=== PATIENT | female | born 1940 | race Caucasian/White ===

== ENCOUNTER 2016-08-13 08:21 | Outpatient (CLI) | payer MEDICARE ==
[2016-08-13 12:58] LABS: #Basophils 0.1 thou/uL (0.0-0.2); #Eosinphils 0.2 thou/uL (0.0-0.7); #Lymphocytes 2.4 thou/uL (1.20-3.40); #Monocytes 0.8 thou/uL (0.11-0.59); #Neutrophils 5.4 thou/uL (1.40-6.50); %Eosinophils 1.9 % (0.0-10.0); %Lymphocytes 26.9 % (21.0-51.0); %Monocytes 9.5 % (0.0-10.0); %Neutrophils 60.7 % (42.0-75.0); Hemoglobin 14.6 g/dL (12.0-16.0); Mean Corpuscular HGB CONC 32.5 g/dL (32.0-36.0); Mean Corpuscular Hemoglobin 33.5 pg (27.0-31.0); Mean Platelet Volume 5.8 fL (7.4-10.4); Platelet Count 278 thou/uL (130-400); RBC Distribution Width 13.2 % (11.5-14.5); Red Blood Cell (RBC) Count 4.36 mill/uL (4.20-5.40); White Blood Cell (WBC) Count 8.9 thou/uL (4.8-10.8)
[2016-08-13 13:24] LABS: Hemoglobin A1c 5.6 % (4.0-6.0)
[2016-08-13 13:34] LABS: ALT (SGPT) 24 U/L (0-55); AST (SGOT) 23 U/L (5-34); Albumin 4.3 g/dL (3.4-4.8); Alkaline Phosphatase 57 U/L (40-150); Anion Gap 19 mmol/L (10-20); BUN (Urea Nitrogen) 15 mg/dL (9.8-20.1); Bilirubin, Direct 0.2 mg/dL (0.1-0.3); Bilirubin, Total 0.5 mg/dL (0.2-1.2); Calc. Creatinine Clearance 0 mL/min (70-130); Calcium 10.3 mg/dL (7.8-10.44); Carbon Dioxide 25 mmol/L (23-31); Cardiac Risk 4.6 (Less than 4.5); Chloride 99 mmol/L (98-107); Cholesterol 167 mg/dL (< 200 Desired); Estimated GFR-MDRD 49; Glucose 83 mg/dL (83-110); HDL Cholesterol 36 mg/dL (>60 Neg Risk); LDL Cholesterol, Calculated 109 mg/dL; Potassium 4.6 mmol/L (3.5-5.1); Protein, Total 7.6 g/dL (5.8-8.1); Sodium 138 mmol/L (136-145); Triglycerides 108 mg/dL (Less than 150)
== END 2016-08-13 08:22 ==
LOC: NAVSJIPCSP 08:21
PROVIDERS: ATTEND Family Medicine
DX: E03.9 Hypothyroidism, unspecified (principal); B34.9 Viral infection, unspecified; J30.9 Allergic rhinitis, unspecified; D64.9 Anemia, unspecified; J32.9 Chronic sinusitis, unspecified; G44.209 Tension-type headache, unspecified, not intractable; M06.9 Rheumatoid arthritis, unspecified; M62.838 Other muscle spasm; M48.06 Spinal stenosis, lumbar region; M51.16 Intervertebral disc disorders with radiculopathy, lumbar region; I10 Essential (primary) hypertension
CPT/HCPCS: 36415; 80048; 80061; 80076; 83036; 84443; 85025

== ENCOUNTER 2016-12-12 09:54 | Outpatient (CLI) | payer MEDICARE ==
[2016-12-12 19:26] LABS: ALT (SGPT) 18 U/L (8-55); AST (SGOT) 18 U/L (5-34); Alkaline Phosphatase 65 U/L (40-150); Anion Gap 17 mmol/L (10-20); BUN (Urea Nitrogen) 14 mg/dL (9.8-20.1); Bilirubin, Direct 0.3 mg/dL (0.1-0.3); Bilirubin, Total 0.6 mg/dL (0.2-1.2); Calc. Creatinine Clearance 0 mL/min (70-130); Calcium 9.9 mg/dL (7.8-10.44); Carbon Dioxide 25 mmol/L (23-31); Cardiac Risk 3.7 (Less than 4.5); Chloride 100 mmol/L (98-107); Cholesterol 145 mg/dl (< 200 Desired); Estimated GFR-MDRD 53; Glucose 98 mg/dL (83-110); HDL Cholesterol 39 mg/dL (>60 Neg Risk); LDL Cholesterol, Calculated 92 mg/dL; Potassium 4.7 mmol/L (3.5-5.1); Protein, Total 7.1 g/dL (6.0-8.3); Sodium 137 mmol/L (136-145); Triglycerides 72 mg/dL (Less than 150)
[2016-12-12 20:19] LABS: Hemoglobin A1c 5.6 % (4.0-6.0)
[2016-12-12 21:12] LABS: #Basophils 0.1 thou/uL (0.0-0.2); #Eosinphils 0.2 thou/uL (0.0-0.7); #Lymphocytes 2.5 thou/uL (1.20-3.40); #Monocytes 0.7 thou/uL (0.11-0.59); #Neutrophils 5.4 thou/uL (1.40-6.50); %Basophils 1.5 % (0.0-1.0); %Eosinophils 1.9 % (0.0-10.0); %Lymphocytes 28.2 % (21.0-51.0); %Monocytes 7.4 % (0.0-10.0); MDiff Complete? YES; Macrocytosis SLIGHT = 6-15 cells (100X) (0-5/hpf); Mean Corpuscular HGB CONC 31.9 g/dL (32.0-36.0); Mean Corpuscular Hemoglobin 33.5 pg (27.0-31.0); Mean Platelet Volume 5.6 fL (7.4-10.4); Platelet Count 267 thou/uL (130-400); RBC Distribution Width 14.1 % (11.5-14.5); Red Blood Cell (RBC) Count 4.17 mill/uL (4.20-5.40); White Blood Cell (WBC) Count 8.8 thou/uL (4.8-10.8)
== END 2016-12-12 09:55 | disposition home or self-care (01) ==
LOC: NAVSJIPCSP 09:54
PROVIDERS: ATTEND Family Medicine
DX: E03.9 Hypothyroidism, unspecified (principal); M48.06 Spinal stenosis, lumbar region; J30.9 Allergic rhinitis, unspecified; B34.9 Viral infection, unspecified; I10 Essential (primary) hypertension; M06.9 Rheumatoid arthritis, unspecified; D64.9 Anemia, unspecified; Z79.899 Other long term (current) drug therapy
CPT/HCPCS: 36415; 80048; 80061; 80076; 83036; 84443; 85025

== ENCOUNTER 2016-12-19 14:58 | Outpatient (CLI) | payer MEDICARE ==
--- NOTE | 2016-12-19 16:40 | RAD ---
LEFT KNEE FOUR VIEWS: History: Left knee pain. FINDINGS: There is mild joint space narrowing at the medial compartment with mild tricompartmental osteophytos is. No acute fracture, dislocation, or aggressive osseous erosions are apparent. Small amount of flu id distends the suprapatellar bursa on the lateral view. Tiny well corticated ossification lies just superior to the medial femoral condyle on the external rotation view. IMPRESSION: Mild osteoarthritic changes left knee with a small joint effusion. POS: [facility]
[2016-12-19 18:03] LABS: Bilirubin Negative (Negative); Blood, Urine Negative (Negative); Clarity Clear (Clear); Glucose, Urine (Dipstick) Negative (Negative); Leukocyte Trace (Negative); Nitrite Negative (Negative); Protein, Urine (Dipstick) Negative (Neg-Trace); Specific Gravity, Urine 1.015 (1.005-1.030); Urobilinogen 0.2 mg/dL (0.2-1.0); pH, Urine 7.5 (5.0-9.0)
[2016-12-19 18:09] LABS: RBC/HPF 0-3 HPF (0-3)
[2016-12-19 18:10] LABS: Bacteria/HPF Rare-Few HPF (None Seen)
== END 2016-12-19 14:59 | disposition home or self-care (01) ==
LOC: NAV LAB 14:58
PROVIDERS: ATTEND Family Medicine
DX: M25.562 Pain in left knee (principal)
CPT/HCPCS: 81001

== ENCOUNTER 2017-04-02 14:25 | Emergency (ER) | payer MEDICARE ==
[2017-04-02 15:11] LABS: INR-International Normal Ratio 1.1; Prothrombin Time 13.9 SEC (12.0-14.7)
[2017-04-02 15:18] LABS: Hemoglobin 14.1 g/dL (12.0-16.0); Mean Corpuscular Hemoglobin 36.4 pg (27.0-31.0); Mean Platelet Volume 6.5 fL (7.4-10.4); Platelet Count 217 thou/uL (130-400); RBC Distribution Width 12.2 % (11.5-14.5); Red Blood Cell (RBC) Count 3.88 mill/uL (4.20-5.40); White Blood Cell (WBC) Count 8.6 thou/uL (4.8-10.8)
[2017-04-02 15:19] LABS: #Basophils 0.1 thou/uL (0.0-0.2); #Lymphocytes 1.5 thou/uL (1.20-3.40); #Monocytes 1.2 thou/uL (0.11-0.59); #Neutrophils 5.8 thou/uL (1.40-6.50); %Basophils 1.7 % (0.0-1.0); %Eosinophils 0.5 % (0.0-10.0); %Monocytes 13.3 % (0.0-10.0); %Neutrophils 67.4 % (42.0-75.0)
[2017-04-02 15:21] LABS: ALT (SGPT) 37 U/L (8-55); AST (SGOT) 43 U/L (5-34); Alkaline Phosphatase 87 U/L (40-150); Anion Gap 17 mmol/L (10-20); BUN (Urea Nitrogen) 13 mg/dL (9.8-20.1); Bilirubin, Total 0.6 mg/dL (0.2-1.2); Calc. Creatinine Clearance 0 mL/min (70-130); Calcium 9.9 mg/dL (7.8-10.44); Carbon Dioxide 25 mmol/L (23-31); Chloride 100 mmol/L (98-107); Estimated GFR-MDRD 65; Globulin 3.7 g/dL (2.4-3.5); Glucose 95 mg/dL (83-110); Potassium 3.7 mmol/L (3.5-5.1); Protein, Total 7.7 g/dL (6.0-8.3); Sodium 138 mmol/L (136-145)
[2017-04-02 15:22] LABS: CKMB 2.5 ng/mL (0-6.6); Troponin I 0.011 ng/mL (< 0.028)
[2017-04-02 15:25] LABS: PLT Morphology Comment Appears Adequate; RBC Morphology Normal
--- NOTE | 2017-04-02 15:27 | RAD ---
PORTABLE CHEST 1 VIEW: Date: 04/02/17 Time: 1501 hours HISTORY: Cough, dyspnea. Patient had stents placed last week. FINDINGS: Comparison made with exam of 08/15/10. The heart size is borderline. No focal areas of consolidation, pneumothorax, dasia pulmonary edema, o r pleural effusions are seen. IMPRESSION: No radiographic evidence of acute cardiopulmonary process. POS: [facility]
--- NOTE | 2017-04-02 16:41 | CT ---
CTA THORAX WITH CONTRAST: 04/02/17 (Computed Tomographic Angiography, chest(noncoronary) with contrast material, and image postprocessin g) (PE protocol) HISTORY: 76-year-old female with dyspnea. TECHNIQUE: IV injection of iodinated contrast: Administered. Scan acquisition timing attempted to coincide with iodinated contrast bolus reaching maximal density in pulmonary arteries. 3D MIP reconstructions. COMPARISON: None. FINDINGS: Bilateral adrenal glands are thickened, left greater than right. No splenomegaly. Liver is diffusely enlarged, incompletely imaged. Atherosclerotic calcification of thoracic aorta without aneurysm or di ssection. Multiple mildly enlarged, scattered mediastinal lymph nodes, including pretracheal and prev ascular space, and subcarinal region. Mildly enlarged bilateral hilar lymph nodes. No evidence of pul monary thromboembolism. No consolidation, pulmonary edema, pulmonary mass, pleural effusion or pneumo thorax. IMPRESSION: 1. No evidence of pulmonary thromboembolism. 2. Nonspecific mild mediastinal and hilar lymphadenopathy. 3. Hepatomegaly. 4. Mild bilateral adrenal enlargement, nonspecific, perhaps hyperplasia. red[] POS: [facility]
[2017-04-02] MEDS ORDERED: Acetaminophen 325 MG TAB ONE (17:35)
== END 2017-04-02 18:18 | disposition short-term general hospital (02) ==
LOC: NAV ERS 14:25
DX: J20.9 Acute bronchitis, unspecified (principal); I10 Essential (primary) hypertension; F41.9 Anxiety disorder, unspecified; Z79.899 Other long term (current) drug therapy
CPT/HCPCS: 36415; 71010; 71275; 80053; 82553; 83880; 84484; 85025; 85610; 93005; 94760

== ENCOUNTER 2017-04-07 16:44 | Emergency (ER) | payer MEDICARE ==
[2017-04-07] MEDS ORDERED: methylPREDNISolone Sod Succ/PF 125 MG/2 ML VIAL ONE (17:09)
[2017-04-07 17:55] LABS: #Basophils 0.1 thou/uL (0.0-0.2); #Lymphocytes 5.3 thou/uL (1.20-3.40); #Monocytes 1.2 thou/uL (0.11-0.59); #Neutrophils 4.7 thou/uL (1.40-6.50); %Basophils 0.6 % (0.0-1.0); %Eosinophils 0.2 % (0.0-10.0); %Monocytes 10.6 % (0.0-10.0); %Neutrophils 41.6 % (42.0-75.0); Hemoglobin 15.1 g/dL (12.0-16.0); Mean Corpuscular HGB CONC 31.7 g/dL (32.0-36.0); Mean Corpuscular Hemoglobin 33.4 pg (27.0-31.0); Mean Platelet Volume 7.8 fL (7.4-10.4); Platelet Count 122 thou/uL (130-400); RBC Distribution Width 12.4 % (11.5-14.5); Red Blood Cell (RBC) Count 4.53 mill/uL (4.20-5.40); White Blood Cell (WBC) Count 11.3 thou/uL (4.8-10.8)
[2017-04-07 18:12] LABS: ALT (SGPT) 28 U/L (8-55); AST (SGOT) 32 U/L (5-34); Albumin 4.1 g/dL (3.4-4.8); Alkaline Phosphatase 77 U/L (40-150); Anion Gap 17 mmol/L (10-20); BUN (Urea Nitrogen) 11 mg/dL (9.8-20.1); Bilirubin, Total 0.5 mg/dL (0.2-1.2); Calc. Creatinine Clearance 0 mL/min (70-130); Calcium 10.6 mg/dL (7.8-10.44); Carbon Dioxide 24 mmol/L (23-31); Chloride 97 mmol/L (98-107); Estimated GFR-MDRD 55; Globulin 3.8 g/dL (2.4-3.5); Glucose 120 mg/dL (83-110); Potassium 3.7 mmol/L (3.5-5.1); Protein, Total 7.9 g/dL (6.0-8.3); Sodium 134 mmol/L (136-145)
--- NOTE | 2017-04-07 18:14 | RAD ---
PORTABLE SEMIUPRIGHT FRONTAL RICARDO RADIOGRAPH: Date: 04/07/17 COMPARISON: 04/02/17. HISTORY: Dyspnea and shortness of breath. FINDINGS: Patient is imaged in a lordotic position. Heart and mediastinal contours are stable. There is degener ative change of bilateral AC joints. No lobar consolidation or alveolar edema. IMPRESSION: No significant interval change. POS: [facility]
== END 2017-04-07 20:16 | disposition short-term general hospital (02) ==
LOC: NAV ERS 16:44
DX: J44.1 Chronic obstructive pulmonary disease with (acute) exacerbation (principal); I10 Essential (primary) hypertension; F32.9 Major depressive disorder, single episode, unspecified; F41.9 Anxiety disorder, unspecified; Z79.899 Other long term (current) drug therapy; Z79.82 Long term (current) use of aspirin; Z79.02 Long term (current) use of antithrombotics/antiplatelets
CPT/HCPCS: 71010; 80053; 83880; 85025; 93005; 96374; J2930; J7620

== ENCOUNTER 2017-04-19 12:12 | Inpatient (IN) | payer MEDICARE ==
[2017-04-19 12:55] VITALS: BMI 34.5
[2017-04-19] MEDS ORDERED: guaiFENesin/Codeine Phosphate 200 mg/20 mg 10 ml UD Cup PO PRN (17:50)
[2017-04-19] MEDS: Famotidine 20 MG TAB PO SCH (19:04)
[2017-04-19] MEDS ORDERED: IPRATROPIUM ALBUTEROL INH SCH (21:00)
[2017-04-19] MEDS: Arformoterol 15 MCG/2 ML NEB NEB SCH (22:04)
[2017-04-19] MEDS: Budesonide 0.5 MG/2 ML NEB NEB SCH (22:05)
[2017-04-19] MEDS: Spironolactone 25 MG TAB PO SCH (22:05)
[2017-04-19] MEDS: Atorvastatin Calcium 40 MG TAB PO SCH (22:05)
[2017-04-19] MEDS: Benzonatate 100 MG CAP PO SCH (22:05)
[2017-04-19] MEDS: ALPRAZolam 0.5 MG TAB PO PRN (22:06)
[2017-04-19] MEDS: Linezolid 600 MG TAB PO SCH (22:06)
--- NOTE | 2017-04-19 23:35 | HP ---
This is Dr. Darien Orosco, dictating an admission to skilled unit on Ms. Aleena Pulliam, a sandra ent of Dr. Juan J Desai. CHIEF COMPLAINT: MRSA pneumonia, severe deconditioning. HISTORY OF PRESENT ILLNESS: The patient is a 77-year-old white female with a long history of hyperte nsion, COPD, possible sleep apnea, peripheral vascular disease and coronary disease, who was admitted to the hospital at [facility] on 04/07 after having several admissions in the ER for recurrent cough. She had had an admission to the hospital 1 week before that for a stent to her left iliofemoral artery secondary to peripheral vascular disease and with a finding of nonsurgical c oronary disease. She subsequently was found to have a right lower lobe infiltrate with sputum cultur e x2 growing MRSA and is felt to have a health care-associated MRSA pneumonia and was admitted to the hospital and started on vancomycin and meropenem. She was also started on significant bronchodilato rs and steroids and slowly, but surely improved. As mentioned above, she does have a history of poss ible sleep apnea as she failed her sleep study as she was unable to tolerate the mask and therefore h as not been treated. 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 At this time, yasemin jane is still significantly short of breath on any exertion and even on talking requires oxygen at all t imes and was being set up for home O2. However, because of her inability to maintain ADLs and her li ving situation of living alone, it is felt she required admission to the skilled unit for physical th erapy. PAST MEDICAL HISTORY: Also remarkable for hypertension, dyslipidemia, the above-mentioned nonobstruc tive coronary disease, peripheral vascular disease, status post recent left iliac stent, chronic sinu sitis, hypothyroidism, chronic kidney disease stage 3, and probable sleep apnea. ALLERGIES: She is allergic to PENICILLIN and SULFA. SOCIAL HISTORY: She lives alone. She is a . She drinks 3-4 vodka beverages daily. She is a n onsmoker in the last 20 years. FAMILY MEDICAL HISTORY: Positive for mother with CHF and father with a stroke. SURGICAL HISTORY: Positive for hysterectomy, appendectomy, tonsillectomy, 2 bladder surgeries and co ronary stent in 2017, although she tells me she had nonsurgical disease in her left leg arterial sten t in 2017. REVIEW OF SYSTEMS: HEENT: She denies any headaches, dizziness, change in vision or hearing, hoarsen ess or dysphagia. Pulmonary: She does have recent cough, no previous history of cough. She has no significant dyspnea until 6 months ago began to have gradually increasing dyspnea and she has no prev ious history of pneumonia until this MRSA pneumonia. She does have the above-mentioned history of pr obable sleep apnea, untreated. Cardiovascular: She has the above-mentioned history of mild coronary disease with a possible stent, as well as significant peripheral vascular disease with a documented left iliac stent of this month. She has no orthopnea or paroxysmal nocturnal dyspnea. She does have occasional edema. Gastrointestinal: She denies nausea, vomiting, diarrhea, constipation or abdomin al pain. Genitourinary: She denies dysuria, hematuria or nocturia. Musculoskeletal: She denies st iffness, swelling in joints or extremities. PHYSICAL EXAMINATION: GENERAL: The patient is an elderly white female, obese, in no acute distress, who is oriented x3 and cooperative, but does become significant dyspnea on walking or talking. VITAL SIGNS: Showed her to have a blood pressure of 181/72, temperature 98, pulse 93, respirations 2 2 and O2 sats 95% on 2 liters. HEENT: Pupils are equal, round and reactive to light and accommodation. Sclerae are anicteric, Conj unctivae pale. Oral mucous membranes well hydrated. LUNGS: Appeared to be clear with only rare wheezes. No rhonchi or rales. CARDIAC: Regular rhythm. No gallops or murmurs. ABDOMEN: Soft and nontender with no masses or organomegaly. GENITOURINARY: She denies dysuria, hematuria or nocturia. MUSCULOSKELETAL: She has some pain and stiffness in her knees. NEUROLOGIC: She denies localized numbness, weakness in arms or extremities. Has no crepitance or st iffness. Neurologically is intact. LABORATORY AND X-RAY FINDINGS: None done today pending tomorrow. ASSESSMENT AND PLAN: A 77-year-old white female with a history of probable longstanding obstructive sleep apnea, recent diagnosis of coronary artery disease and progressive finding of increasing shortn ess of breath, probably due to chronic obstructive pulmonary disease who was found also to have a new finding of probable healthcare-associated pneumonia with methicillin-resistant Staphylococcus aureus with significant respiratory distress. She has responded to IV vancomycin and is now on oral Zyvox for 2 weeks for her methicillin-resistant Staphylococcus aureus pneumonia, but is improving with mini mal cough, but is significantly hypoxic and short of breath, requiring oxygen at all times and is duarte ble to maintain her ADLs. Therefore, she was admitted to the skilled unit for continued physical the rapy, occupational therapy. While she was monitored closely, continue on her antibiotic therapy for methicillin-resistant Staphylococcus aureus and will be monitored closely for any signs of recurrent angina or congestive heart failure. As mentioned above, if she lives alone, she needs to be much str onger in order to maintain ADLs and hopefully will be able to be taken off her oxygen, but may have c hronic hypoxemia from longstanding obstructive sleep apnea and has been qualified to get this at home . She will be continued on hand held nebulizers, IV Zyvox, diltiazem, Plavix and aspirin.
[2017-04-20 06:05] LABS: #Lymphocytes 1.7 thou/uL (1.20-3.40); #Monocytes 0.9 thou/uL (0.11-0.59); #Neutrophils 12.8 thou/uL (1.40-6.50); %Basophils 0.2 % (0.0-1.0); %Eosinophils 0.1 % (0.0-10.0); %Lymphocytes 11.2 % (21.0-51.0); %Monocytes 5.8 % (0.0-10.0); %Neutrophils 82.7 % (42.0-75.0); Hemoglobin 9.7 g/dL (12.0-16.0); Mean Corpuscular HGB CONC 34.2 g/dL (32.0-36.0); Mean Corpuscular Hemoglobin 32.4 pg (27.0-31.0); Mean Corpuscular Volume 94.8 fl (81.0-99.0); Mean Platelet Volume 6.4 fL (7.4-10.4); Platelet Count 217 thou/uL (130-400); RBC Distribution Width 14.3 % (11.5-14.5); White Blood Cell (WBC) Count 15.5 thou/uL (4.8-10.8)
[2017-04-20 06:21] LABS: Anion Gap 11 mmol/L (10-20); BUN (Urea Nitrogen) 24 mg/dL (9.8-20.1); Calc. Creatinine Clearance 83 mL/min (70-130); Calcium 8.3 mg/dL (7.8-10.44); Carbon Dioxide 29 mmol/L (23-31); Chloride 100 mmol/L (98-107); Estimated GFR-MDRD 69; Glucose 120 mg/dL (83-110); Potassium 5.1 mmol/L (3.5-5.1); Sodium 135 mmol/L (136-145)
[2017-04-20] MEDS: HYDROcodone/Acetaminophen 5/325 mg Tablet PO PRN ×2 (09:31→13:09)
[2017-04-20] MEDS: predniSONE 10 MG TAB PO SCH (09:32)
[2017-04-20] MEDS: Levothyroxine Sodium 50 MCG TAB PO SCH (09:33)
[2017-04-20] MEDS: Clopidogrel Bisulfate 75 MG TAB PO SCH (09:33)
[2017-04-20] MEDS: Aspirin 81 mg Enteric Coated Tablet PO SCH (09:33)
[2017-04-20] MEDS: Spironolactone 25 MG TAB PO SCH ×2 (09:33→21:03)
[2017-04-20] MEDS: Magnesium Oxide 400 MG TAB PO SCH (09:33)
[2017-04-20] MEDS: Famotidine 20 MG TAB PO SCH (09:33)
[2017-04-20] MEDS: Linezolid 600 MG TAB PO SCH ×2 (09:33→21:03)
[2017-04-20] MEDS: Benzonatate 100 MG CAP PO SCH ×3 (09:33→21:03)
[2017-04-20] MEDS: Fluticasone Propionate Nasal Spray 16 gm Bottle NASAL SCH (09:34)
[2017-04-20] MEDS: Arformoterol 15 MCG/2 ML NEB NEB SCH ×2 (09:40→21:02)
[2017-04-20] MEDS: Budesonide 0.5 MG/2 ML NEB NEB SCH ×2 (09:40→21:02)
[2017-04-20] MEDS: IRBESARTAN 300 MG PO SCH (09:41)
--- NOTE | 2017-04-20 11:11 | RAD ---
AP VIEW CHEST: Date: 04/20/17 HISTORY: MRSA, pneumonia. FINDINGS: Comparison made to previous exam from 04/07/17. AP view of chest demonstrates the lungs to be well aerated. No evidence of active intrathoracic disea se is seen. No evidence of effusions, pneumonia, or pneumothorax seen. IMPRESSION: Unremarkable AP view of chest. POS: [facility]
--- NOTE | 2017-04-20 19:33 | PRG ---
DATE OF SERVICE: 04/20/2017 SUBJECTIVE: The patient is sitting up, playing cards, feels well with no dyspnea at rest, slept well last night. Minimal cough, work slightly with therapy today, but is still requiring oxygen and feel s unsafe walking. OBJECTIVE: VITAL SIGNS: Show temperature 131/61, pulse 96, O2 sats 97% on 3 liters. LUNGS: Clear. CARDIAC: Examination showed regular rhythm. ABDOMEN: Soft and nontender. LABORATORY DATA: Show white count 15,500, hematocrit 28, hemoglobin 9.7. Sodium is 135, potassium 5 .1, chloride 100, bicarbonate 29, BUN 24, creatinine 0.81. IMAGING: Chest x-ray shows no acute infiltrates. ASSESSMENT: 1. Resolving methicillin-resistant Staphylococcus aureus pneumonia on oral Zyvox for 2 full weeks. 2. Persistent obstructive sleep apnea and chronic obstructive pulmonary disease requiring oxygen and we will attempt to wean off of this as it become stronger. 3. Significant deconditioning requiring PT and OT. We will monitor vital signs during therapy.
[2017-04-20] MEDS: ALPRAZolam 0.5 MG TAB PO PRN (21:02)
[2017-04-20] MEDS: Atorvastatin Calcium 40 MG TAB PO SCH (21:03)
[2017-04-21] MEDS: HYDROcodone/Acetaminophen 5/325 mg Tablet PO PRN ×3 (03:36→14:09)
[2017-04-21] MEDS: Aspirin 81 mg Enteric Coated Tablet PO SCH (10:02)
[2017-04-21] MEDS: predniSONE 10 MG TAB PO SCH (10:02)
[2017-04-21] MEDS: Linezolid 600 MG TAB PO SCH ×2 (10:03→21:37)
[2017-04-21] MEDS: Magnesium Oxide 400 MG TAB PO SCH (10:03)
[2017-04-21] MEDS: Clopidogrel Bisulfate 75 MG TAB PO SCH (10:04)
[2017-04-21] MEDS: Famotidine 20 MG TAB PO SCH (10:04)
[2017-04-21] MEDS: Benzonatate 100 MG CAP PO SCH ×3 (10:05→21:36)
[2017-04-21] MEDS: Spironolactone 25 MG TAB PO SCH ×2 (10:05→21:36)
[2017-04-21] MEDS: Levothyroxine Sodium 50 MCG TAB PO SCH (10:05)
[2017-04-21] MEDS: Arformoterol 15 MCG/2 ML NEB NEB SCH ×2 (10:05→21:37)
[2017-04-21] MEDS: Budesonide 0.5 MG/2 ML NEB NEB SCH ×2 (10:05→21:37)
[2017-04-21] MEDS: Fluticasone Propionate Nasal Spray 16 gm Bottle NASAL SCH (10:05)
[2017-04-21] MEDS: IRBESARTAN 300 MG PO SCH (10:05)
[2017-04-21] MEDS: Atorvastatin Calcium 40 MG TAB PO SCH (21:36)
[2017-04-21] MEDS: ALPRAZolam 0.5 MG TAB PO PRN (21:36)
[2017-04-22] MEDS: HYDROcodone/Acetaminophen 5/325 mg Tablet PO PRN ×3 (06:46→21:11)
[2017-04-22] MEDS: Famotidine 20 MG TAB PO SCH (09:04)
[2017-04-22] MEDS: Magnesium Oxide 400 MG TAB PO SCH (09:04)
[2017-04-22] MEDS: Aspirin 81 mg Enteric Coated Tablet PO SCH (09:04)
[2017-04-22] MEDS: Clopidogrel Bisulfate 75 MG TAB PO SCH (09:04)
[2017-04-22] MEDS: Benzonatate 100 MG CAP PO SCH ×3 (09:04→21:11)
[2017-04-22] MEDS: Levothyroxine Sodium 50 MCG TAB PO SCH (09:04)
[2017-04-22] MEDS: predniSONE 10 MG TAB PO SCH (09:04)
[2017-04-22] MEDS: Linezolid 600 MG TAB PO SCH ×2 (09:04→21:13)
[2017-04-22] MEDS: Spironolactone 25 MG TAB PO SCH (09:05)
[2017-04-22] MEDS: Budesonide 0.5 MG/2 ML NEB NEB SCH ×2 (09:07→21:11)
[2017-04-22] MEDS: Fluticasone Propionate Nasal Spray 16 gm Bottle NASAL SCH (09:19)
[2017-04-22] MEDS: Arformoterol 15 MCG/2 ML NEB NEB SCH ×3 (09:26→21:13)
[2017-04-22] MEDS: IRBESARTAN 300 MG PO SCH (09:27)
[2017-04-22] MEDS ORDERED: Milk Of Magnesia 30 ML UDCUP PO PRN (10:03)
[2017-04-22] MEDS: IRBESARTAN FS SCH (11:20)
[2017-04-22] MEDS: ALPRAZolam 0.5 MG TAB PO PRN (21:12)
[2017-04-22] MEDS: Atorvastatin Calcium 40 MG TAB PO SCH (21:13)
--- NOTE | 2017-04-23 04:23 | PRG ---
DATE OF SERVICE: 04/22/2017 SUBJECTIVE: The patient feels well, resting in bed with no shortness breath, chest pain, cough. OBJECTIVE: VITAL SIGNS: Temperature 97.3, pulse 96, respirations 20, O2 sats 97% on 1.5 liters, blood pressure 141/61. LUNGS: Clear. CARDIAC EXAMINATION: Showed regular rhythm. ABDOMEN: Soft, nontender. Skin and extremities showed no edema. ASSESSMENT: 1. Resolving methicillin-resistant Staphylococcus aureus pneumonia, on Zyvox. 2. Stable obstructive sleep apnea and chronic obstructive pulmonary disease. 3. Significant deconditioning. PLAN: 1. Discontinue oxygen tomorrow. 2. Continue PT, OT. 3. Continue oral Zyvox.
--- NOTE | 2017-04-23 04:29 | PRG ---
DATE OF SERVICE: 04/21/2017 SUBJECTIVE: The patient feels well, resting well with no cough, shortness of breath, has not been up and moving around secondary to no therapy available. OBJECTIVE: VITAL SIGNS: Shows her blood pressure is 140/63, pulse 103, respirations 20, O2 sats 99% on 2 liters . LUNGS: Clear. CARDIAC: Examination showed regular rhythm. No gallops or murmurs. ABDOMEN: Soft and nontender. ASSESSMENT: 1. Resolving methicillin-resistant Staphylococcus aureus pneumonia, on Zyvox 14 days. 2. Stable obstructive sleep apnea, chronic obstructive pulmonary disease, home oxygen. 3. Significant deconditioning, resting well, awaiting physical therapy. PLAN: Continue Zyvox. Continue to monitor for changes in vital signs. Continue CPAP and oxygen as needed. We will wean off hopefully in the next several days if the patie nt becomes stronger.
[2017-04-23 06:03] LABS: Anion Gap 12 mmol/L (10-20); BUN (Urea Nitrogen) 23 mg/dL (9.8-20.1); Calc. Creatinine Clearance 79 mL/min (70-130); Calcium 7.9 mg/dL (7.8-10.44); Carbon Dioxide 27 mmol/L (23-31); Chloride 100 mmol/L (98-107); Estimated GFR-MDRD 65; Glucose 99 mg/dL (83-110); Potassium 4.6 mmol/L (3.5-5.1); Sodium 134 mmol/L (136-145)
[2017-04-23] MEDS: predniSONE 10 MG TAB PO SCH (08:05)
[2017-04-23] MEDS: Levothyroxine Sodium 50 MCG TAB PO SCH (08:05)
[2017-04-23] MEDS: Magnesium Oxide 400 MG TAB PO SCH (08:05)
[2017-04-23] MEDS: Clopidogrel Bisulfate 75 MG TAB PO SCH (08:05)
[2017-04-23] MEDS: Famotidine 20 MG TAB PO SCH (08:06)
[2017-04-23] MEDS: Benzonatate 100 MG CAP PO SCH ×3 (08:06→21:56)
[2017-04-23] MEDS: HYDROcodone/Acetaminophen 5/325 mg Tablet PO PRN ×3 (08:06→21:56)
[2017-04-23] MEDS: Linezolid 600 MG TAB PO SCH ×2 (08:06→21:56)
[2017-04-23] MEDS: Aspirin 81 mg Enteric Coated Tablet PO SCH (08:06)
[2017-04-23] MEDS: Budesonide 0.5 MG/2 ML NEB NEB SCH ×2 (08:07→21:55)
[2017-04-23] MEDS: Arformoterol 15 MCG/2 ML NEB NEB SCH ×2 (09:30→21:54)
[2017-04-23] MEDS: Fluticasone Propionate Nasal Spray 16 gm Bottle NASAL SCH (09:31)
[2017-04-23] MEDS: IRBESARTAN FS SCH (09:35)
[2017-04-23] MEDS: ALPRAZolam 0.5 MG TAB PO PRN (21:56)
[2017-04-23] MEDS: Atorvastatin Calcium 40 MG TAB PO SCH (21:56)
[2017-04-24] MEDS: Levothyroxine Sodium 50 MCG TAB PO SCH (05:57)
[2017-04-24] MEDS: Fluticasone Propionate Nasal Spray 16 gm Bottle NASAL SCH (08:19)
[2017-04-24] MEDS: HYDROcodone/Acetaminophen 5/325 mg Tablet PO PRN ×3 (08:21→22:07)
[2017-04-24] MEDS: Clopidogrel Bisulfate 75 MG TAB PO SCH (08:22)
[2017-04-24] MEDS: Magnesium Oxide 400 MG TAB PO SCH (08:22)
[2017-04-24] MEDS: Benzonatate 100 MG CAP PO SCH ×3 (08:22→21:34)
[2017-04-24] MEDS: Famotidine 20 MG TAB PO SCH (08:22)
[2017-04-24] MEDS: Linezolid 600 MG TAB PO SCH ×2 (08:23→21:34)
[2017-04-24] MEDS: Budesonide 0.5 MG/2 ML NEB NEB SCH ×2 (08:23→21:34)
[2017-04-24] MEDS: Arformoterol 15 MCG/2 ML NEB NEB SCH ×2 (08:23→21:34)
[2017-04-24] MEDS: Aspirin 81 mg Enteric Coated Tablet PO SCH (08:23)
[2017-04-24] MEDS: predniSONE 10 MG TAB PO SCH (08:24)
--- NOTE | 2017-04-24 08:49 | PRG ---
DATE OF SERVICE: 04/24/2017 SUBJECTIVE: The patient is resting well, sitting in the chair playing cards, feels well. No complai nts of shortness of breath, chest pain. She cooperated with therapy today and feels she is getting s tronger. She has had no fever, chills, cough or sputum production. OBJECTIVE: VITAL SIGNS: Blood pressure is 120/56, temperature 96.7, pulse 97, respirations 20, O2 sats 96%. LUNGS: Lungs clear. CARDIAC: Cardiac examination shows regular rhythm. No gallops, murmurs. ABDOMEN: Soft and nontender. ASSESSMENT: 1. Resolving methicillin-resistant Staphylococcus aureus pneumonia, on Zyvox. 2. Stable obstructive sleep apnea and chronic obstructive pulmonary disease. 3. Improving deconditioning. PLAN: Continue physical therapy, occupational therapy. Continue oral Zyvox. Dr. Desai is back to night.
[2017-04-24] MEDS: Atorvastatin Calcium 40 MG TAB PO SCH (21:34)
[2017-04-25] MEDS: Levothyroxine Sodium 50 MCG TAB PO SCH (06:02)
[2017-04-25] MEDS: HYDROcodone/Acetaminophen 5/325 mg Tablet PO PRN ×3 (06:02→20:57)
--- NOTE | 2017-04-25 06:19 | PRG ---
DATE OF ADMISSION: 04/19/2017 DATE OF SERVICE: 04/24/2017 HISTORY OF PRESENT ILLNESS: Ms. Pulliam is a very pleasant 77-year-old white female patient of min e from [place], [place]. She had multiple visits to the emergency room at [facility]. She was eventually admitted for pneumonia. She had a right lower lobe infiltrate and sputum cu ltures grew out MRSA. She was started on vancomycin, meropenem, steroids, and bronchodilators. The patient eventually improved, but she was extremely weak. She was eventually transferred to [facility] for physical therapy and occupational therapy to increase her strength and her stam marco antonio. SUBJECTIVE: The patient states she feels a little bit better today. She is still very weak, but she is able to make one lap around the nurse's station with considerable rest periods. The patient states she is doing much better and is ready to continue to get stronger, so she can go h ome eventually. PHYSICAL EXAMINATION: VITAL SIGNS: Reveal blood pressure 132/58, pulse 99 to 105, respirations 20, O2 sat 95% to 96%. GENERAL: This is a well-developed, well-nourished, obese white female in no apparent distress today. She has seen playing cards in her bed. HEENT: Reveals normocephalic, nontraumatic cranium. Pupils are equally round and reactive. Extraoc ular movements intact. Nose and throat are moist. NECK: Supple, without mass, nodes or bruits. CHEST: Still reveals occasional wheeze, but no rales, rhonchi are noted. Occasional raspy cough was noted. HEART: Reveals a regular rate and rhythm without murmurs, gallops or rubs. ABDOMEN: Obese, soft, nontender, without organomegaly. Normal bowel sounds are noted. No rebound o r guarding was noted. : Deferred. EXTREMITIES: Reveal no clubbing, cyanosis or any significant edema. She does have significant arthr itis in her knees. NEUROLOGIC: She is grossly intact. LABORATORY DATA: Reveals sodium yesterday 134, potassium 4.6, creatinine 0.85, and glucose 99. ASSESSMENT: 1. Peripheral vascular disease with new stents, mainly in her left leg. 2. Chronic obstructive pulmonary disease. 3. Methicillin-resistant Staphylococcus aureus healthcare associated pneumonia with significant resp iratory distress. 4. Hypertension. 5. Hyperlipidemia. 6. Coronary artery disease. 7. Peripheral vascular disease. 8. Hypothyroidism. 9. Chronic kidney disease stage 3. 10. Probable sleep apnea. 11. Chronic sinusitis. 12. Recent left iliac stent. 13. Generalized weakness. PLAN: 1. Continue her Zyvox for full 2 weeks after being admitted here. 2. Stress ulcer prophylaxis. 3. Continue to follow the patient's blood pressure closely. 4. Decubitus precautions. 5. Deep venous thrombosis prophylaxis. 6. Physical therapy and occupational therapy.
[2017-04-25] MEDS: Fluticasone Propionate Nasal Spray 16 gm Bottle NASAL SCH (09:15)
[2017-04-25] MEDS: Magnesium Oxide 400 MG TAB PO SCH (09:16)
[2017-04-25] MEDS: Clopidogrel Bisulfate 75 MG TAB PO SCH (09:16)
[2017-04-25] MEDS: Benzonatate 100 MG CAP PO SCH ×3 (09:17→20:52)
[2017-04-25] MEDS: Linezolid 600 MG TAB PO SCH ×2 (09:17→20:52)
[2017-04-25] MEDS: predniSONE 10 MG TAB PO SCH (09:17)
[2017-04-25] MEDS: Aspirin 81 mg Enteric Coated Tablet PO SCH (09:17)
[2017-04-25] MEDS: Famotidine 20 MG TAB PO SCH (09:18)
[2017-04-25] MEDS: Arformoterol 15 MCG/2 ML NEB NEB SCH ×2 (09:18→20:51)
[2017-04-25] MEDS: Budesonide 0.5 MG/2 ML NEB NEB SCH ×2 (09:19→20:51)
[2017-04-25] MEDS: Atorvastatin Calcium 40 MG TAB PO SCH (20:52)
--- NOTE | 2017-04-26 00:59 | PRG ---
DATE OF SERVICE: 04/25/2017 DATE OF ADMISSION: 04/19/2017 HISTORY OF PRESENT ILLNESS: Ms. Pulliam is a very pleasant 77-year-old white female that after mul tiple visits to the emergency room and was admitted. She was found to have pneumonia and right lower lobe infiltrate and was growing out MRSA. She was eventually started on vancomycin, meropenem stero ids and bronchodilators. She eventually improved and was transferred to [facility] for physical the rapy and occupational therapy because of her significant loss of her strength and her significant wea kness. PHYSICAL EXAMINATION: VITAL SIGNS: Today reveal blood pressure is 119/57 this morning. Pulse 101, respirations 20, O2 sat uration 97% on room air, temperature max 98.1. GENERAL: This is a well-developed, well-nourished, obese white female in no apparent distress at thi s time. HEENT: Reveals normocephalic, nontraumatic cranium. Pupils are equally round and reactive. Extraoc ular movements intact. Nose and throat are somewhat dry but clear. NECK: Supple, without masses, nodes or bruits. LUNGS: Chest is clear to auscultation. No rales, rhonchi or wheezes are heard today. Occasional ra spy cough is still heard, but the patient's wheezes are gone. HEART: Reveals a regular rate and rhythm without murmurs, gallops or rubs. ABDOMEN: Soft, nontender, without organomegaly, normal bowel sounds are noted. No rebound or guardi ng is noted. : Deferred. EXTREMITIES: Reveal no clubbing, cyanosis or edema. NEUROLOGIC: The patient does have continued arthritis in her knees, but those are slowly improving. Neurologically, she is grossly intact. IMPRESSION: 1. Peripheral vascular disease with new stents mainly in her left leg. 2. Chronic obstructive pulmonary disease. 2. Methicillin Staphylococcus aureus healthcare associated pneumonia with significant respiratory di stress. 3. Hypertension. 4. Hyperlipidemia. 5. Coronary artery disease. 6. Hypothyroidism. 7. Peripheral vascular disease. 8. Chronic kidney disease, stage 3. 9. Probable sleep apnea. 10. Chronic sinusitis. 11. Left iliac stent recently placed. 12. Generalized weakness. PLAN: 1. Continue Zyvox for full 2 weeks. 2. Continue stress ulcer prophylaxis. 3. Monitor the patient's blood pressure closely. 4. Decubitus precautions. 5. Deep venous thrombosis prophylaxis. 6. Physical therapy and occupational therapy.
[2017-04-26] MEDS: Levothyroxine Sodium 50 MCG TAB PO SCH (06:08)
[2017-04-26] MEDS: Budesonide 0.5 MG/2 ML NEB NEB SCH ×2 (09:03→21:03)
[2017-04-26] MEDS: Arformoterol 15 MCG/2 ML NEB NEB SCH ×2 (09:03→21:02)
[2017-04-26] MEDS: Fluticasone Propionate Nasal Spray 16 gm Bottle NASAL SCH (09:03)
[2017-04-26] MEDS: Linezolid 600 MG TAB PO SCH ×2 (09:04→21:01)
[2017-04-26] MEDS: Benzonatate 100 MG CAP PO SCH ×3 (09:04→21:03)
[2017-04-26] MEDS: Clopidogrel Bisulfate 75 MG TAB PO SCH (09:05)
[2017-04-26] MEDS: Magnesium Oxide 400 MG TAB PO SCH (09:05)
[2017-04-26] MEDS: Aspirin 81 mg Enteric Coated Tablet PO SCH (09:05)
[2017-04-26] MEDS: Famotidine 20 MG TAB PO SCH (09:05)
[2017-04-26] MEDS: predniSONE 10 MG TAB PO SCH (09:06)
[2017-04-26] MEDS: HYDROcodone/Acetaminophen 5/325 mg Tablet PO PRN ×2 (11:03→21:01)
--- NOTE | 2017-04-26 13:11 | PRG ---
DATE OF SERVICE: 04/26/2017 HISTORY OF PRESENT ILLNESS: Ms. Pulliam is a very pleasant 77-year-old white female that was seen in the emergency room, found to have a right lower lobe infiltrate pneumonia. She was growing out MR MICHAELS on her sputum culture. She was started on vancomycin, meropenem steroids and bronchodilator. She was extremely fatigued and eventually transferred to [facility] for physical therapy and occupational therapy. SUBJECTIVE: The patient states she is feeling better. She states she is walking a little bit better today. On physical therapy, she walked 120 feet day before yesterday and 180 feet yesterday. She states she is slowly, but surely getting stronger. PHYSICAL EXAMINATION: GENERAL: This is a well-developed, well-nourished, very pleasant 77-year-old white female in no appa rent distress at this time. VITAL SIGNS: Today reveal blood pressure 122/60, pulse 96-100, respirations 16-18, O2 sat 94%-96%, T -max 97.3. HEENT: Reveals normocephalic, nontraumatic cranium. Pupils are equally, round and reactive. Extrao cular movements intact. Nose and throat are slightly dry. NECK: Supple, without masses, nodes or bruits. CHEST: Clear to auscultation. No rales, rhonchi or wheezes are heard. CARDIOVASCULAR: Reveals a regular rate and rhythm without murmurs, gallops or rubs. ABDOMEN: Obese, soft, nontender, without organomegaly. Normal bowel sounds are noted. No rebound o r guarding is noted. GENITOURINARY: Deferred. EXTREMITIES: Reveal no clubbing, cyanosis with trace edema. The patient continues to have some arth ritis in her knees. NEUROLOGIC: The patient is grossly intact. IMPRESSION: 1. Severe peripheral vascular disease with new stents mainly in the left leg. 2. Chronic obstructive pulmonary disease. 3. Methicillin-resistant Staph aureus healthcare associated pneumonia with significant respiratory d istress, slowly improving. 4. Hypertension. 5. Hyperlipidemia. 6. Coronary artery disease. 7. Hypothyroidism. 8. Peripheral vascular disease. 9. Chronic kidney disease stage 3. 10. Probable sleep apnea. 11. Chronic sinusitis. 12. Left iliac stent recently placed. 13. Generalized weakness. PLAN: 1. Continue Zyvox for a full 2 weeks. 2. Continue stress ulcer prophylaxis. 3. Monitor the patient's blood pressure closely. 4. Decubitus precautions. 5. Deep venous thrombosis prophylaxis. 6. Physical therapy and occupational therapy to continue.
[2017-04-26] MEDS: Atorvastatin Calcium 40 MG TAB PO SCH (21:01)
[2017-04-27] MEDS: HYDROcodone/Acetaminophen 5/325 mg Tablet PO PRN ×2 (03:04→21:15)
[2017-04-27] MEDS: Levothyroxine Sodium 50 MCG TAB PO SCH (06:25)
[2017-04-27] MEDS: Fluticasone Propionate Nasal Spray 16 gm Bottle NASAL SCH (09:08)
[2017-04-27] MEDS: Arformoterol 15 MCG/2 ML NEB NEB SCH ×2 (09:11→21:13)
[2017-04-27] MEDS: Linezolid 600 MG TAB PO SCH ×2 (09:11→21:22)
[2017-04-27] MEDS: Budesonide 0.5 MG/2 ML NEB NEB SCH ×2 (09:11→21:13)
[2017-04-27] MEDS: Magnesium Oxide 400 MG TAB PO SCH (09:11)
[2017-04-27] MEDS: Famotidine 20 MG TAB PO SCH (09:12)
[2017-04-27] MEDS: Aspirin 81 mg Enteric Coated Tablet PO SCH (09:12)
[2017-04-27] MEDS: Clopidogrel Bisulfate 75 MG TAB PO SCH (09:12)
[2017-04-27] MEDS: Benzonatate 100 MG CAP PO SCH ×3 (09:12→21:12)
[2017-04-27] MEDS: predniSONE 10 MG TAB PO SCH (09:13)
--- NOTE | 2017-04-27 20:57 | PRG ---
DATE OF SERVICE: 04/27/2017 HISTORY OF PRESENT ILLNESS: Ms. Pulliam is a very pleasant 77-year-old white female found to have a right lower lobe infiltrate and pneumonia. She is growing MRSA in her sputum. She eventually was started on vancomycin, meropenem, steroids, and bronchodilators. She eventually was stabilized and w as transferred to [facility] to continue her antibiotics and for physical therapy and occupational therapy to increase her strength and stamina. SUBJECTIVE: The patient states she had a bad night last night and actually has not slept in last 2 n ights. She would like to stop her albuterol at night. Also, recommend that we cut her steroids to 2 0 mg only in the morning and not 20 mg b.i.d. She is amenable to both those things. She continues t o walk a little bit, but therapy is not in today. She has no complaints today. OBJECTIVE: VITAL SIGNS: Reveals blood pressure this morning was 160/79, pulse 102-106, respirations 18-19, O2 s at 94% to 96%. T-max is 98.0. LABORATORY DATA: No labs were done today. PHYSICAL EXAMINATION: GENERAL: This is a well-developed, well-nourished, very pleasant, slightly obese white female in no apparent distress at this time. HEENT: Reveals normocephalic, nontraumatic cranium. Pupils are equally round and reactive. Extraoc ular movements intact. Nose and throat are dry, but clear. The patient has still squeaky raspy type voice. CHEST: Reveals no rales, rhonchi, or wheezes, but occasional cough is still noted. HEART: Reveals a regular rate and rhythm without murmurs, gallops, or rubs. ABDOMEN: Obese, soft, nontender, without organomegaly. Normal bowel sounds are noted. No rebound o r guarding is noted. : Deferred. EXTREMITIES: Reveal no clubbing, cyanosis, but still some trace edema. The patient continues to hav e arthritis in her knees also. NEUROLOGIC: The patient is grossly intact. IMPRESSION: 1. Chronic obstructive pulmonary disease. 2. Pneumonia, which is methicillin-resistant Staph aureus, healthcare associated, slowly improving. 3. Hypertension. 4. Coronary artery disease. 5. Hyperlipidemia. 6. Chronic obstructive pulmonary disease. 7. Hypothyroidism. 8. Peripheral vascular disease. 9. Chronic kidney disease, stage 3. 10. Probable sleep apnea. 11. Chronic sinusitis. 12. Left iliac stent recently placed some generalized weakness. PLAN: 1. Continue Zyvox for a full 2 weeks. 2. Continue stress ulcer prophylaxis. 3. Continue to watch the patient's blood pressure closely. 4. Decubitus precautions. 5. Deep venous thrombosis prophylaxis. 6. Continue physical therapy and occupational therapy when they return.
[2017-04-27] MEDS: Atorvastatin Calcium 40 MG TAB PO SCH (21:13)
[2017-04-27] MEDS: ALPRAZolam 0.5 MG TAB PO PRN (23:59)
[2017-04-28] MEDS: Levothyroxine Sodium 50 MCG TAB PO SCH (05:49)
[2017-04-28] MEDS: Fluticasone Propionate Nasal Spray 16 gm Bottle NASAL SCH (09:17)
[2017-04-28] MEDS: Arformoterol 15 MCG/2 ML NEB NEB SCH ×2 (09:17→21:26)
[2017-04-28] MEDS: Linezolid 600 MG TAB PO SCH ×2 (09:18→21:26)
[2017-04-28] MEDS: Budesonide 0.5 MG/2 ML NEB NEB SCH ×2 (09:18→21:26)
[2017-04-28] MEDS: Benzonatate 100 MG CAP PO SCH ×3 (09:19→21:27)
[2017-04-28] MEDS: Aspirin 81 mg Enteric Coated Tablet PO SCH (09:19)
[2017-04-28] MEDS: Clopidogrel Bisulfate 75 MG TAB PO SCH (09:19)
[2017-04-28] MEDS: Magnesium Oxide 400 MG TAB PO SCH (09:19)
[2017-04-28] MEDS: Famotidine 20 MG TAB PO SCH (09:20)
[2017-04-28] MEDS: predniSONE 10 MG TAB PO SCH (09:20)
[2017-04-28] MEDS: HYDROcodone/Acetaminophen 5/325 mg Tablet PO PRN (21:26)
[2017-04-28] MEDS: Atorvastatin Calcium 40 MG TAB PO SCH (21:27)
[2017-04-28] MEDS: ALPRAZolam 0.5 MG TAB PO PRN (22:13)
--- NOTE | 2017-04-29 00:02 | PRG ---
DATE OF ADMISSION: 04/19/2017 DATE OF SERVICE: 04/28/2017 HISTORY OF PRESENT ILLNESS: Ms. Pulliam is a very pleasant 77-year-old white female, who was found to have a right lower lobe infiltrate and pneumonia. She was at [facility] and was growing MR . She eventually was started on vancomycin, meropenem, steroids, and bronchodilators. She bertha ramsey was stabilized and transferred to [facility] to continue her antibiotics. She wa s also here for physical therapy and occupational therapy to increase her strength and stamina. SUBJECTIVE: The patient states she had a better night last night since she is off her steroids. She said she slept fairly well, but not as well as she thought she would want to. She has no complaints today. OBJECTIVE: VITAL SIGNS: Reveal blood pressure this morning was 121/60, pulse 91-102, respirations 20, O2 sat 95 % to 96%, T-max is 97.8. GENERAL: This is a well-developed, well-nourished, obese white female, in no apparent distress at th is time. HEENT: Reveals normocephalic, nontraumatic cranium. Pupils are equally round and reactive. Extraoc ular movements are intact. Nose and throat are slightly dry, but clear. NECK: Supple, without masses, nodes or bruits. Her voice is much stronger and less squeaky today. CHEST: Clear to auscultation. No rales, no rhonchi, no wheezes are heard. The patient has much les s cough noted. CARDIOVASCULAR: Heart reveals regular rate and rhythm without murmurs, gallops or rubs. ABDOMEN: Obese, soft, nontender, without organomegaly. Normal bowel sounds are found in all 4 quadr ants. No rebound or guarding is noted. GENITOURINARY: Deferred. EXTREMITIES: Reveal no clubbing, cyanosis, with still some trace edema. The patient continued to garrison ve arthritis in her knees also. NEUROLOGIC: The patient is stable and grossly intact. IMPRESSION 1. Chronic obstructive pulmonary disease with acute exacerbation. 2. Pneumonia with methicillin-resistant Staphylococcus aureus, healthcare-associated, slowly improvi ng. 3. Generalized weakness. 4. Hypertension. 5. Coronary artery disease. 6. Hyperlipidemia. 7. Chronic obstructive pulmonary disease. 8. Hypothyroidism. 9. Peripheral vascular disease. 10. Chronic kidney disease, stage 3. 11. Probable obstructive sleep apnea. 12. Chronic sinusitis. 13. Left iliac stent recently placed with some generalized weakness. 14. Generalized weakness. PLAN: 1. Continue Zyvox for 2 weeks. 2. Continue stress ulcer prophylaxis. 3. Continue to watch the patient's blood pressure closely. 4. Decubitus precaution. 5. Deep venous thrombosis prophylaxis. 6. Continue physical therapy and occupational therapy.
[2017-04-29] MEDS: Levothyroxine Sodium 50 MCG TAB PO SCH (06:00)
[2017-04-29] MEDS: Fluticasone Propionate Nasal Spray 16 gm Bottle NASAL SCH (09:49)
[2017-04-29] MEDS: Arformoterol 15 MCG/2 ML NEB NEB SCH ×2 (09:50→21:32)
[2017-04-29] MEDS: Linezolid 600 MG TAB PO SCH ×2 (09:51→21:31)
[2017-04-29] MEDS: Clopidogrel Bisulfate 75 MG TAB PO SCH (09:51)
[2017-04-29] MEDS: Benzonatate 100 MG CAP PO SCH ×3 (09:51→21:31)
[2017-04-29] MEDS: Aspirin 81 mg Enteric Coated Tablet PO SCH (09:52)
[2017-04-29] MEDS: Famotidine 20 MG TAB PO SCH (09:52)
[2017-04-29] MEDS: Magnesium Oxide 400 MG TAB PO SCH (09:53)
[2017-04-29] MEDS: Budesonide 0.5 MG/2 ML NEB NEB SCH ×2 (09:55→21:32)
[2017-04-29] MEDS: predniSONE 10 MG TAB PO SCH (09:56)
--- NOTE | 2017-04-29 17:18 | PRG ---
DATE OF ADMISSION: 04/19/2017 DATE OF SERVICE: 04/29/2017 HISTORY OF PRESENT ILLNESS: Ms. Pulliam is a very pleasant 77-year-old white female who had a righ t lower lobe infiltrate and pneumonia. She was treated at the [facility] and was growing MRSA. She was started on vancomycin, meropenem, steroids and bronchodilators. She eventually was stabilized and transferred to [facility] for physical therapy and occ upational therapy to increase her strength and stamina. SUBJECTIVE: The patient states she had a good day. She slept well last night and feels a little tir ed today, but did have some physical therapy and did fairly well. OBJECTIVE: VITAL SIGNS: Reveal blood pressure 115/55; pulse 102 to 96, which is coming down; respirations 18; O 2 sat 97% to 99%, which is improved. T-max 97.4. GENERAL: This is a well-developed, well-nourished, very pleasant, slightly obese white female, in no apparent distress at this time. HEENT: Reveals normocephalic, nontraumatic cranium. Pupils are equally round and reactive. Nose an d throat are slightly dry. NECK: Supple, without masses, nodes or bruits. LUNGS: Chest is clear to auscultation. No rales, rhonchi or wheezes are heard. No cough is noted t tre. CARDIOVASCULAR: Heart reveals a regular rate and rhythm without murmurs, gallops or rubs. ABDOMEN: Obese and soft. It is nontender without organomegaly. Normal bowel sounds are noted. No rebound or guarding is noted. : Deferred. EXTREMITIES: Reveal no clubbing, cyanosis or edema. ASSESSMENT: 1. Chronic obstructive pulmonary disease with acute exacerbation. 2. Pneumonia with methicillin-resistant Staph aureus, healthcare-associated, slowly improving. 3. Generalized weakness. 4. Hypertension. 5. Coronary artery disease. 6. Hyperlipidemia. 7. Chronic obstructive pulmonary disease. 8. Hypothyroidism. 9. Peripheral vascular disease. 10. Chronic kidney disease, stage 3. 11. Probable obstructive sleep apnea. 12. Chronic sinusitis. 13. Left iliac stent recently placed for some generalized weakness. 14. Generalized weakness. PLAN: 1. Continue Zyvox for 2 weeks. 2. Continue stress ulcer prophylaxis. 3. Continue to watch the patient's blood pressure closely. 4. Decubitus precautions. 5. Deep venous thrombosis prophylaxis. 6. Continue physical therapy and occupational therapy. 7. Last day of Zyvox is this Saturday, I believe on the .
[2017-04-29] MEDS: HYDROcodone/Acetaminophen 5/325 mg Tablet PO PRN (21:30)
[2017-04-29] MEDS: Atorvastatin Calcium 40 MG TAB PO SCH (21:31)
[2017-04-29] MEDS: ALPRAZolam 0.5 MG TAB PO PRN (21:31)
[2017-04-30] MEDS: Levothyroxine Sodium 50 MCG TAB PO SCH (05:40)
[2017-04-30] MEDS: Fluticasone Propionate Nasal Spray 16 gm Bottle NASAL SCH (09:23)
[2017-04-30] MEDS: Arformoterol 15 MCG/2 ML NEB NEB SCH ×2 (09:23→21:18)
[2017-04-30] MEDS: Budesonide 0.5 MG/2 ML NEB NEB SCH ×2 (09:23→21:15)
[2017-04-30] MEDS: Benzonatate 100 MG CAP PO SCH ×3 (09:24→21:17)
[2017-04-30] MEDS: Magnesium Oxide 400 MG TAB PO SCH (09:24)
[2017-04-30] MEDS: Aspirin 81 mg Enteric Coated Tablet PO SCH (09:24)
[2017-04-30] MEDS: Linezolid 600 MG TAB PO SCH ×2 (09:24→21:15)
[2017-04-30] MEDS: Clopidogrel Bisulfate 75 MG TAB PO SCH (09:25)
[2017-04-30] MEDS: predniSONE 10 MG TAB PO SCH (09:25)
[2017-04-30] MEDS: Famotidine 20 MG TAB PO SCH (09:25)
--- NOTE | 2017-04-30 10:08 | PRG ---
DATE OF SERVICE: 04/30/2017 HISTORY OF PRESENT ILLNESS: Ms. Pulliam is a very pleasant 77-year-old white female with a right l ower lobe infiltrate pneumonia. Treated at [facility] and was growing MRSA. She was started on vancomycin, meropenem, steroids and transferred over to [place] on Zyvox. She has act ually done very well except she is still hyper we are decreasing her steroids to 10 mg today. We are also going to stop her albuterol, DuoNeb treatments. She states she gets short of breath when she walks and we will continue to get her moving and walking around in and out of bed as much as possible. PHYSICAL EXAMINATION: VITAL SIGNS: Today reveal blood pressure 110/56, pulse 99-105 which is improved, it is used to be 10 6 at all times. Respirations 18-20, O2 sat 96%-97%. T-max 96.1. GENERAL: This is a well-developed, slightly obese white female in no apparent distress at this time. HEENT: Reveals normocephalic, nontraumatic cranium. Pupils are equally round and reactive. Extraoc ular movements intact. Nose and throat are slightly dry. NECK: Supple, without masses, nodes or bruits. LUNGS: Chest is clear to auscultation. No rales, rhonchi or wheezes are heard. HEART: Reveals a regular rate and rhythm without murmurs, gallops or rubs. ABDOMEN: Obese and soft. It is nontender, without organomegaly. Normal bowel sounds are noted in a ll 4 quadrants. No rebound or guarding is noted. : Deferred. EXTREMITIES: Reveal no clubbing, cyanosis with trace edema. IMPRESSION: 1. Chronic obstructive pulmonary disease with acute exacerbation. 2. Pneumonia with methicillin-resistant Staphylococcus aureus, healthcare associated, presently on Z yvox which runs out at the end of the week. 3. Generalized weakness. 4. Hypertension. 5. Coronary artery disease. 6. Hyperlipidemia. 7. Chronic obstructive pulmonary disease. 8. Hypothyroidism. 9. Peripheral vascular disease. 10. Chronic kidney disease stage 3. 11. Obstructive sleep apnea. 12. Chronic sinusitis. 13. Left iliac stent recently placed. 14. Generalized weakness. PLAN: 1. Zyvox runs out, I believe Saturday on 05/03/2017. 2. Continue stress ulcer prophylaxis. 3. Watch patient's blood pressure. 4. Decrease steroids to 10 mg each day. 5. Stop the DuoNebs. 6. Decubitus precautions. 7. DVT prophylaxis. 8. Continue physical therapy and occupational therapy.
[2017-04-30] MEDS: Atorvastatin Calcium 40 MG TAB PO SCH (21:15)
[2017-04-30] MEDS: HYDROcodone/Acetaminophen 5/325 mg Tablet PO PRN (21:16)
[2017-04-30] MEDS: ALPRAZolam 0.5 MG TAB PO PRN (21:17)
[2017-05-01] MEDS: Levothyroxine Sodium 50 MCG TAB PO SCH (06:01)
[2017-05-01] MEDS: Fluticasone Propionate Nasal Spray 16 gm Bottle NASAL SCH (08:57)
[2017-05-01] MEDS: Arformoterol 15 MCG/2 ML NEB NEB SCH ×2 (08:57→21:08)
[2017-05-01] MEDS: Budesonide 0.5 MG/2 ML NEB NEB SCH ×2 (08:57→21:11)
[2017-05-01] MEDS: Famotidine 20 MG TAB PO SCH (08:58)
[2017-05-01] MEDS: Clopidogrel Bisulfate 75 MG TAB PO SCH (08:58)
[2017-05-01] MEDS: Linezolid 600 MG TAB PO SCH ×2 (08:58→21:13)
[2017-05-01] MEDS: Magnesium Oxide 400 MG TAB PO SCH (08:58)
[2017-05-01] MEDS: Benzonatate 100 MG CAP PO SCH ×3 (08:58→21:11)
[2017-05-01] MEDS: Aspirin 81 mg Enteric Coated Tablet PO SCH (08:58)
[2017-05-01] MEDS: predniSONE 10 MG TAB PO SCH (09:00)
[2017-05-01 14:17] LABS: #Basophils 0.1 thou/uL (0.0-0.2); #Lymphocytes 1.4 thou/uL (1.20-3.40); #Monocytes 0.2 thou/uL (0.11-0.59); #Neutrophils 7.4 thou/uL (1.40-6.50); %Basophils 0.7 % (0.0-1.0); %Eosinophils 0.5 % (0.0-10.0); %Lymphocytes 15.6 % (21.0-51.0); %Monocytes 2.4 % (0.0-10.0); %Neutrophils 80.8 % (42.0-75.0); Hemoglobin 8.6 g/dL (12.0-16.0); Hypochromia SLIGHT = 6-15 cells (100X) (0-5/hpf); MDiff Complete? YES; Mean Corpuscular HGB CONC 33.4 g/dL (32.0-36.0); Mean Corpuscular Hemoglobin 31.7 pg (27.0-31.0); Mean Corpuscular Volume 94.8 fl (81.0-99.0); Mean Platelet Volume 7.6 fL (7.4-10.4); PLT Morphology Comment Appears Decreased; Platelet Count 61 thou/uL (130-400); RBC Distribution Width 13.3 % (11.5-14.5); White Blood Cell (WBC) Count 9.2 thou/uL (4.8-10.8)
[2017-05-01 14:22] LABS: ALT (SGPT) 30 U/L (8-55); AST (SGOT) 18 U/L (5-34); Albumin 3.3 g/dL (3.4-4.8); Alkaline Phosphatase 40 U/L (40-150); Anion Gap 13 mmol/L (10-20); BUN (Urea Nitrogen) 39 mg/dL (9.8-20.1); Bilirubin, Total 1.3 mg/dL (0.2-1.2); Calc. Creatinine Clearance 59 mL/min (70-130); Calcium 7.9 mg/dL (7.8-10.44); Carbon Dioxide 21 mmol/L (23-31); Chloride 102 mmol/L (98-107); Estimated GFR-MDRD 46; Globulin 1.8 g/dL (2.4-3.5); Glucose 102 mg/dL (83-110); Potassium 4.3 mmol/L (3.5-5.1); Protein, Total 5.1 g/dL (6.0-8.3); Sodium 132 mmol/L (136-145)
--- NOTE | 2017-05-01 14:39 | PRG ---
DATE OF SERVICE: 05/01/2017 SUBJECTIVE: Ms. Pulliam is a very pleasant 77-year-old white female that was initially admitted to [facility] with pneumonia. She had significant respiratory distress, was eventu ally found to have a methicillin-resistant Staph aureus, healthcare associated. She was placed on Zy vox, which runs out by end of the week. The patient has not had a good day today. She states she wa s only able to walk about half what she usually does, because she has got completely tired and exhaus sylvie. She had to sit and will have to be pushed back to her room. I did discuss with physical therapy and physical therapy said that her heart rate went up and it stay ed up and her blood pressures started dropping, so she brought back to the room where she was hypoten sive. That is soon resolved after she rested. OBJECTIVE: Vital signs today reveal blood pressure 102/53, pulse 93-106, respirations 18-20, O2 sat 96%-98%. T-max 97.2. LABORATORY DATA: No labs have been done in several days, so we will do a CBC, comp met and BNP. The patient will also have a chest x-ray. The patient will also have an echocardiogram done today. PHYSICAL EXAMINATION: GENERAL: This is a well-developed, well-nourished, very pleasant white female in no apparent distres s at this time. She states she is just tired and exhausted. She also states that her appetite is ve ry poor. HEENT: Reveals normocephalic, nontraumatic cranium. Pupils are equally round and reactive. Extraoc ular movements intact. Nose and throat are slightly dry. NECK: Supple, without masses, nodes or bruits. LUNGS: Chest is clear to auscultation. No rales, no rhonchi, no wheezes are heard. Cough is minima l. CARDIOVASCULAR: Heart reveals a regular rate and rhythm, but tachycardic at 100. ABDOMEN: Obese, soft, nontender, without organomegaly. Normal bowel sounds are noted. No rebound o r guarding is noted. : Deferred. EXTREMITIES: Reveal no clubbing, cyanosis with trace edema. IMPRESSION: 1. Chronic obstructive pulmonary disease with acute exacerbation. 2. Pneumonia with methicillin-resistant Staphylococcus aureus, healthcare associated. 3. Presently on Zyvox, which runs out on Saturday. 4. Continue generalized weakness. 5. Increase in her regular weakness. 6. Hypertension. 7. Coronary artery disease. 8. Hyperlipidemia. 9. Chronic obstructive pulmonary disease. 10. Hypothyroidism. 11. Peripheral vascular disease. 12. Chronic kidney disease stage 3. 13. Obstructive sleep apnea. 14. Generalized sinusitis. 15. Left iliac stent recently placed. 16. Generalized weakness. PLAN: 1. Continue Zyvox with the last date being on Saturday. 2. Continued stress ulcer prophylaxis. 3. We will follow the patient's blood pressure. 4. Steroids had been decreased to 10 mg a day. We will continue that. 5. We stopped her DuoNeb, which she continues on Pulmicort budesonide. 6. Decubitus precautions. 7. Deep venous thrombosis prophylaxis. 8. Continue PT and OT.
--- NOTE | 2017-05-01 15:45 | RAD ---
CHEST TWO VIEW: HISTORY: Shortness of breath. COMPARISON: Chest, one view, 04/20/2017. FINDINGS: There is increased mediastinal fat. The left costophrenic sulcus is obscured on the PA view. No new focal air space consolidation. There are dense calcifications in the aorta. Extensive degenerative changes throughout the thoracic spine without a compression fracture. IMPRESSION: Obscured left lateral costophrenic sulcus, which may be sequela of increased mediastinal fat. POS: AMBERLY
[2017-05-01] MEDS: Atorvastatin Calcium 40 MG TAB PO SCH (21:11)
[2017-05-02] MEDS: ALPRAZolam 0.5 MG TAB PO PRN ×2 (00:41→21:34)
[2017-05-02] MEDS: Levothyroxine Sodium 50 MCG TAB PO SCH (06:30)
[2017-05-02] MEDS: predniSONE 10 MG TAB PO SCH (07:36)
[2017-05-02] MEDS: HYDROcodone/Acetaminophen 5/325 mg Tablet PO PRN (07:36)
[2017-05-02] MEDS: Budesonide 0.5 MG/2 ML NEB NEB SCH ×2 (09:06→21:35)
[2017-05-02] MEDS: Fluticasone Propionate Nasal Spray 16 gm Bottle NASAL SCH (09:06)
[2017-05-02] MEDS: Arformoterol 15 MCG/2 ML NEB NEB SCH ×2 (09:07→21:35)
[2017-05-02] MEDS: Clopidogrel Bisulfate 75 MG TAB PO SCH (09:07)
[2017-05-02] MEDS: Linezolid 600 MG TAB PO SCH ×2 (09:07→21:34)
[2017-05-02] MEDS: Benzonatate 100 MG CAP PO SCH ×3 (09:08→21:34)
[2017-05-02] MEDS: Famotidine 20 MG TAB PO SCH (09:08)
[2017-05-02] MEDS: Aspirin 81 mg Enteric Coated Tablet PO SCH (09:09)
[2017-05-02] MEDS: Magnesium Oxide 400 MG TAB PO SCH (09:09)
[2017-05-02] MEDS: Atorvastatin Calcium 40 MG TAB PO SCH (21:34)
[2017-05-03] MEDS: Levothyroxine Sodium 50 MCG TAB PO SCH (05:59)
[2017-05-03] MEDS: Arformoterol 15 MCG/2 ML NEB NEB SCH ×2 (08:31→22:19)
[2017-05-03] MEDS: Fluticasone Propionate Nasal Spray 16 gm Bottle NASAL SCH (08:31)
[2017-05-03] MEDS: Clopidogrel Bisulfate 75 MG TAB PO SCH (08:32)
[2017-05-03] MEDS: Linezolid 600 MG TAB PO SCH (08:32)
[2017-05-03] MEDS: Budesonide 0.5 MG/2 ML NEB NEB SCH ×2 (08:32→22:20)
[2017-05-03] MEDS: Benzonatate 100 MG CAP PO SCH ×3 (08:32→22:20)
[2017-05-03] MEDS: Magnesium Oxide 400 MG TAB PO SCH (08:33)
[2017-05-03] MEDS: Famotidine 20 MG TAB PO SCH (08:35)
[2017-05-03] MEDS: Aspirin 81 mg Enteric Coated Tablet PO SCH (08:35)
[2017-05-03] MEDS: predniSONE 10 MG TAB PO SCH (08:35)
[2017-05-03] MEDS ORDERED: Ondansetron HCl/PF 4 MG/2 ML Vial SLOW IVP SCH (14:45)
--- NOTE | 2017-05-03 16:44 | PRG ---
DATE OF SERVICE: 05/03/2017 DATE OF ADMISSION: 03/30/2017 HISTORY OF PRESENT ILLNESS: Ms. Pulliam is a very pleasant 77-year-old white female that was admit sylvie to [facility] with pneumonia. She is noted to be methicillin-resistant Staph ylococcus aureus that was healthcare associated. Placed on Zyvox which runs out tomorrow. Patient h as had feeling weak and not wanting to eat very much. We did not encourage her to continue to walk a nd do the best she could. She states that she just feels much more tired today. PHYSICAL EXAMINATION: VITAL SIGNS: Reveal blood pressure 105/51, pulse 93-113, respirations 20, O2 sat 92%-97%, T-max 97.4 . PHYSICAL EXAMINATION: GENERAL: This is a well-developed, well-nourished, pleasant, slightly obese white female in no appar ent distress at this time. HEENT: Reveals normocephalic, nontraumatic cranium. Pupils are equally round and reactive. Extraoc ular movements intact. Nose and throat are slightly dry. NECK: Supple, without mass, nodes or bruits. CHEST: Clear to auscultation. No rales, rhonchi or wheezes are heard. HEART: Reveals a regular rate and rhythm without murmurs, gallops or rubs. ABDOMEN: Obese, soft, nontender. No organomegaly is noted. No rebound or guarding is noted. GENITOURINARY: Deferred. EXTREMITIES: Reveal no clubbing, cyanosis or edema. LABORATORY DATA: Reveals white count 9,200, hemoglobin 8.6, hematocrit 25.6, and platelet count 61,0 00. Electrolytes reveal sodium 132, potassium 4.3, chloride 102, carbon dioxide 21 with BUN of 39, creati nine 1.14. Glucose is 102. IMPRESSION: 1. Increased fatigue and malaise possibly gastrointestinal virus. 2. Chronic obstructive pulmonary disease with acute exacerbation, much improved. 3. Pneumonia with methicillin-resistant Staph, finishes Zyvox on Saturday. 4. Generalized weakness. 5. Increased fatigue. 6. Hypertension. 7. Coronary artery disease. 8. Hyperlipidemia. 9. Hypothyroidism. 10. Peripheral vascular disease. 11. Chronic kidney disease stage 3. 12. Obstructive sleep apnea. 13. Generalized sinusitis. 14. Left iliac stent recently placed. 15. Generalized weakness. PLAN: 1. Zyvox will finish on Saturday. 2. Continue stress ulcer prophylaxis. 3. Follow the patient's blood pressure. 4. Encourage the patient to eat and drink. 5. If the patient's steroids is still down to 10 mg a day, we will continue to follow that. 6. We did stop her DuoNeb, she is not having respiratory problems. 7. Decubitus precautions. 8. DVT prophylaxis. 9. Continue PT and OT.
--- NOTE | 2017-05-03 17:09 | PRG ---
DATE OF SERVICE: 05/03/2017. HISTORY OF PRESENT ILLNESS: Ms. Lester is a very pleasant 77-year-old white female admitted to [facility] with MRSA Staph healthcare-associated pneumonia. She was started on Zyvo x and was eventually stabilized and transferred here to continue Zyvox for a full 14 days, which is o soheila on Saturday. Patient has been doing physical therapy, occupational therapy for the last couple of days has felt ve ry weak and today, she states she was so weak, she could not participate in therapy. She states she is not hungry. She is somewhat nauseated and she did get a shot of Zofran today. She is encouraged to continue drinking, but she said she is just not hungry. PHYSICAL EXAMINATION: VITAL SIGNS: Today reveal blood pressure 105/51, pulse 100-106, respirations 20, O2 sat 94-95%. Lab will be drawn again tomorrow. GENERAL: Reveals a well-developed, well-nourished, tired looking white female in no apparent distres s at this time. HEENT: Reveals normocephalic, nontraumatic cranium. Pupils are equally round and reactive. Extraoc ular movements are intact. Nose and throat are still dry. NECK: Supple, without masses, nodes or bruits. LUNGS: Chest is clear to auscultation. No rales, rhonchi or wheezes are heard. The patient is not coughing. CARDIOVASCULAR: Reveals a regular rate and rhythm. Still tachycardic, which has been her norm since she has been here. ABDOMEN: Soft, nontender, without organomegaly, normal bowel sounds are noted. No rebound or guardi ng is noted. : Deferred. EXTREMITIES: Reveal no clubbing, cyanosis or edema. DIAGNOSTIC DATA: Echocardiogram reveals mild concentric left ventricular hypertrophy, ejection fract ion was 50-55%. E/A flow reverse suggestive of diastolic dysfunction. Normal right ventricular size and function. ASSESSMENT: 1. Chronic obstructive pulmonary disease with acute exacerbation, much improved. 2. Methicillin-resistant Staphylococcus aureus resistant healthcare associated, finishes Zyvox today . 3. Generalized weakness. 4. Hypertension. 5. Coronary artery disease. 6. Hyperlipidemia. 7. Chronic obstructive pulmonary disease. 8. Hypothyroidism. 9. Peripheral vascular disease. 10. Chronic kidney disease stage 3. 11. Obstructive sleep apnea and does not wear CPAP. 12. Generalized sinusitis. 13. Left iliac stent, recently placed. PLAN: 1. Zyvox will be stopped today. 2. We will stop patient's Lipitor in case this may be a statin-induced myopathy. 3. Continue followup of patient's blood pressure. 4. Steroids are down to 10 mg daily. 5. Continue Pulmicort, budesonide. 6. Decubitus precautions. 7. Deep venous thrombosis prophylaxis. Continue PT and OT.
[2017-05-04 00:41] LABS: Bilirubin Small (Negative); Blood, Urine Negative (Negative); Clarity Clear (Clear); Glucose, Urine (Dipstick) Negative (Negative); Leukocyte Trace (Negative); Nitrite Negative (Negative); Protein, Urine (Dipstick) 30 mg/dL (Neg-Trace)
[2017-05-04 00:53] LABS: Specific Gravity, Urine 1.024 (1.002-1.036)
[2017-05-04 00:54] LABS: Bacteria/HPF Rare-Few HPF (None Seen); RBC/HPF None Seen HPF (0-3)
[2017-05-04 05:58] LABS: #Lymphocytes 1.2 thou/uL (1.20-3.40); #Monocytes 0.2 thou/uL (0.11-0.59); #Neutrophils 3.7 thou/uL (1.40-6.50); %Basophils 0.4 % (0.0-1.0); %Eosinophils 0.9 % (0.0-10.0); %Lymphocytes 23.2 % (21.0-51.0); %Monocytes 2.9 % (0.0-10.0); %Neutrophils 72.6 % (42.0-75.0); Hemoglobin 8.1 g/dL (12.0-16.0); Mean Corpuscular HGB CONC 33.8 g/dL (32.0-36.0); Mean Corpuscular Hemoglobin 31.7 pg (27.0-31.0); Mean Corpuscular Volume 93.7 fl (81.0-99.0); Mean Platelet Volume 9.5 fL (7.4-10.4); PLT Morphology Comment Appears Decreased; Platelet Count 52 thou/uL (130-400); RBC Distribution Width 13.1 % (11.5-14.5); RBC Morphology Normal; Red Blood Cell (RBC) Count 2.55 mill/uL (4.20-5.40); White Blood Cell (WBC) Count 5.1 thou/uL (4.8-10.8)
[2017-05-04 05:59] LABS: MDiff Complete? YES; Manual Diff?? NO
[2017-05-04 06:03] LABS: ALT (SGPT) 30 U/L (8-55); AST (SGOT) 18 U/L (5-34); Albumin 3.3 g/dL (3.4-4.8); Alkaline Phosphatase 46 U/L (40-150); Anion Gap 16 mmol/L (10-20); BUN (Urea Nitrogen) 47 mg/dL (9.8-20.1); Bilirubin, Total 0.9 mg/dL (0.2-1.2); Calc. Creatinine Clearance 56 mL/min (70-130); Calcium 8.3 mg/dL (7.8-10.44); Carbon Dioxide 19 mmol/L (23-31); Chloride 102 mmol/L (98-107); Estimated GFR-MDRD 44; Glucose 130 mg/dL (83-110); Potassium 4.6 mmol/L (3.5-5.1); Protein, Total 5.3 g/dL (6.0-8.3); Sodium 132 mmol/L (136-145)
[2017-05-04] MEDS: Levothyroxine Sodium 50 MCG TAB PO SCH (06:08)
[2017-05-04] MEDS: Fluticasone Propionate Nasal Spray 16 gm Bottle NASAL SCH (08:45)
[2017-05-04] MEDS: Clopidogrel Bisulfate 75 MG TAB PO SCH (08:46)
[2017-05-04] MEDS: Aspirin 81 mg Enteric Coated Tablet PO SCH (08:46)
[2017-05-04] MEDS: Magnesium Oxide 400 MG TAB PO SCH (08:47)
[2017-05-04] MEDS: Benzonatate 100 MG CAP PO SCH ×3 (08:47→21:05)
[2017-05-04] MEDS: Famotidine 20 MG TAB PO SCH (08:47)
[2017-05-04] MEDS: predniSONE 10 MG TAB PO SCH (08:48)
[2017-05-04] MEDS: Budesonide 0.5 MG/2 ML NEB NEB SCH ×2 (08:50→21:05)
[2017-05-04] MEDS: Arformoterol 15 MCG/2 ML NEB NEB SCH ×2 (09:18→21:04)
[2017-05-04] MEDS: Sodium Chloride 0.9% 1,000 ML IV SCH ×3 (10:50→21:03)
[2017-05-04] MEDS: Ondansetron HCl/PF 4 MG/2 ML Vial IVP PRN ×2 (12:15→17:50)
--- NOTE | 2017-05-04 16:30 | PRG ---
DATE OF SERVICE: 05/04/2017 SUBJECTIVE: Ms. Pulliam is fatigued and tired today. She had low blood pressure this morning. Sh e also felt nauseous. Her blood pressure medicine was held and she has been started on IV fluids. S he is responding to Zofran. She also has a flat affect. OBJECTIVE: VITAL SIGNS: She is afebrile, heart rate is 97, respirations 20, oxygen saturation 94%, blood pressu re 110/53, it was 96/50 this morning. CARDIOVASCULAR SYSTEM: S1, S2 plus. RESPIRATORY SYSTEM: Normal vesicular breath sounds. ABDOMEN: Soft, nontender, bowel sounds heard in all quadrants. EXTREMITIES: Without cyanosis or clubbing. CENTRAL NERVOUS SYSTEM: Generalized weakness with flat affect. LABORATORY DATA: White count is 5.1, hemoglobin and hematocrit is 8.1 and 23.9. Sodium 132, potassi um 4.6, BUN and creatinine 47 and 1.19, it was 39 and 1.14 on 05/01/2017. Blood sugars are 100 and 1 46. IMPRESSION: 1. Resolving methicillin-resistant Staphylococcus aureus pneumonia. 2. Hypotension and nausea with decreased p.o. intake. 3. Chronic obstructive pulmonary disease. 4. Hypertension. 5. Coronary artery disease without angina. 6. Dyslipidemia. 7. Hypothyroidism. 8. Obstructive sleep apnea. 9. Possible depression. PLAN: 1. Continue IV fluids normal saline at 100 mL an hour. 2. Hold Avapro if systolic blood pressure is less than 140. 3. Trial of Celexa 10 mg daily. 4. Routine laboratory values. 5. DVT and stress ulcer prophylaxis. 6. Decubitus precautions. 7. Physical therapy. 8. Decrease prednisone to 5 mg. 9. Discussed with patient in detail and all questions answered.
[2017-05-04] MEDS: Acetaminophen 325 MG TAB PO PRN (21:05)
[2017-05-04] MEDS: Ondansetron ODT 4 MG TAB PO PRN (21:05)
[2017-05-04] MEDS: ALPRAZolam 0.5 MG TAB PO PRN (21:05)
[2017-05-05] MEDS: Levothyroxine Sodium 50 MCG TAB PO SCH (06:14)
[2017-05-05 07:47] LABS: #Eosinphils 0.1 thou/uL (0.0-0.7); #Lymphocytes 1.3 thou/uL (1.20-3.40); #Monocytes 0.2 thou/uL (0.11-0.59); #Neutrophils 3.9 thou/uL (1.40-6.50); %Basophils 0.4 % (0.0-1.0); %Lymphocytes 23.2 % (21.0-51.0); %Monocytes 3.6 % (0.0-10.0); %Neutrophils 71.9 % (42.0-75.0); Hemoglobin 7.7 g/dL (12.0-16.0); MDiff Complete? YES; Manual Diff?? NO; Mean Corpuscular HGB CONC 33.5 g/dL (32.0-36.0); Mean Corpuscular Hemoglobin 31.8 pg (27.0-31.0); Mean Corpuscular Volume 94.8 fl (81.0-99.0); Mean Platelet Volume 8.8 fL (7.4-10.4); PLT Morphology Comment Appears Decreased; Platelet Count 55 thou/uL (130-400); RBC Distribution Width 13.2 % (11.5-14.5); RBC Morphology Normal; Red Blood Cell (RBC) Count 2.41 mill/uL (4.20-5.40); White Blood Cell (WBC) Count 5.4 thou/uL (4.8-10.8)
[2017-05-05 08:02] LABS: Anion Gap 15 mmol/L (10-20); BUN (Urea Nitrogen) 38 mg/dL (9.8-20.1); Calc. Creatinine Clearance 81 mL/min (70-130); Calcium 7.9 mg/dL (7.8-10.44); Carbon Dioxide 18 mmol/L (23-31); Chloride 105 mmol/L (98-107); Estimated GFR-MDRD 67; Glucose 98 mg/dL (83-110); Potassium 4.5 mmol/L (3.5-5.1); Sodium 133 mmol/L (136-145)
[2017-05-05] MEDS: Sodium Chloride 0.9% 1,000 ML IV SCH ×2 (08:03→16:54)
[2017-05-05] MEDS: predniSONE 10 MG TAB PO SCH (09:51)
[2017-05-05] MEDS: Clopidogrel Bisulfate 75 MG TAB PO SCH (09:52)
[2017-05-05] MEDS: Benzonatate 100 MG CAP PO SCH ×3 (09:52→21:09)
[2017-05-05] MEDS: Magnesium Oxide 400 MG TAB PO SCH (09:52)
[2017-05-05] MEDS: Aspirin 81 mg Enteric Coated Tablet PO SCH (09:53)
[2017-05-05] MEDS: Arformoterol 15 MCG/2 ML NEB NEB SCH ×2 (09:54→21:09)
[2017-05-05] MEDS: Famotidine 20 MG TAB PO SCH (09:54)
[2017-05-05] MEDS: Fluticasone Propionate Nasal Spray 16 gm Bottle NASAL SCH (09:56)
[2017-05-05] MEDS: Budesonide 0.5 MG/2 ML NEB NEB SCH ×2 (09:59→21:09)
--- NOTE | 2017-05-05 11:35 | PRG ---
DATE OF SERVICE: 05/05/2017 SUBJECTIVE: Ms. Pulliam states she is feeling better. She denies any complaints. Nausea is impro nneka. She is having bowel movements daily. OBJECTIVE: VITAL SIGNS: She is afebrile, heart rate 94, respirations 17, oxygen saturation 93%, blood pressure 98/53. CARDIOVASCULAR: S1, S2 plus. RESPIRATORY: Normal vesicular breath sounds. ABDOMEN: Soft, nontender, bowel sounds heard in all quadrants. EXTREMITIES: Without cyanosis or clubbing. CENTRAL NERVOUS SYSTEM: Generalized weakness. LABORATORY VALUES: White count is 5.4, H&H is 7.7 and 22.9. Sodium 133, potassium 4.5, BUN and crea tinine is 38 and 0.83. IMPRESSION: 1. Resolving dehydration. 2. Improving nausea. 3. Hyponatremia, improving. 4. Depression. 5. Resolving methicillin resistant Staphylococcus aureus pneumonia. 6. Chronic obstructive pulmonary disease. 7. Coronary artery disease without angina. 8. Dyslipidemia. 9. Hypothyroidism. PLAN: 1. Continue current medications. She is actually on Zoloft 25 mg daily since there is an interactio n between the Celexa and the Zofran. 2. Nutritional support. 3. Physical therapy. 4. Breathing treatments. 5. Deep venous thrombosis and stress ulcer prophylaxis. 6. Routine laboratory values. 7. Dr. Lamont Desai back tonight to resume care.
[2017-05-05] MEDS: ALPRAZolam 0.5 MG TAB PO PRN (21:09)
[2017-05-06] MEDS: Sodium Chloride 0.9% 1,000 ML IV SCH ×2 (03:38→18:18)
[2017-05-06 05:41] LABS: Anion Gap 12 mmol/L (10-20); BUN (Urea Nitrogen) 25 mg/dL (9.8-20.1); Calc. Creatinine Clearance 90 mL/min (70-130); Carbon Dioxide 22 mmol/L (23-31); Chloride 105 mmol/L (98-107); Estimated GFR-MDRD 76; Glucose 89 mg/dL (83-110); Potassium 4.9 mmol/L (3.5-5.1); Sodium 134 mmol/L (136-145)
[2017-05-06] MEDS: Levothyroxine Sodium 50 MCG TAB PO SCH (06:19)
[2017-05-06] MEDS: Famotidine 20 MG TAB PO SCH (08:44)
[2017-05-06] MEDS: Arformoterol 15 MCG/2 ML NEB NEB SCH ×2 (08:44→21:32)
[2017-05-06] MEDS: predniSONE 10 MG TAB PO SCH (08:44)
[2017-05-06] MEDS: Clopidogrel Bisulfate 75 MG TAB PO SCH (08:44)
[2017-05-06] MEDS: Magnesium Oxide 400 MG TAB PO SCH (08:45)
[2017-05-06] MEDS: Budesonide 0.5 MG/2 ML NEB NEB SCH ×2 (08:45→21:32)
[2017-05-06] MEDS: Benzonatate 100 MG CAP PO SCH ×3 (08:45→21:32)
[2017-05-06] MEDS: Aspirin 81 mg Enteric Coated Tablet PO SCH (08:45)
[2017-05-06] MEDS: Fluticasone Propionate Nasal Spray 16 gm Bottle NASAL SCH (08:46)
--- NOTE | 2017-05-06 21:30 | PRG ---
DATE OF SERVICE: 05/06/2017 SUBJECTIVE: Ms. Pulliam is a very pleasant 77-year-old white female that had MRSA Staph, healthcar e-associated pneumonia. She was started on multiple medications and actually switched to Zyvox. She was transferred to [facility] on Zyvox for 14 days, which is over on Saturday. Otherw ise, she has been doing very well under physical therapy and occupational therapy except for the last couple of days. She has felt very weak. Over the weekend, she was very weak, but now this morning she states she is feeling better. She is up and walking, less nausea. She states she did eat a jacek le more breakfast today. She states she is slowly but surely getting a little better. She has no co mplaints today. OBJECTIVE: VITAL SIGNS: Reveal blood pressure this morning 122/60, pulse 100-99, respirations 18, O2 sat 99%, T -max 97.7. GENERAL: This is a well-developed, well-nourished, slightly obese white female in no apparent distre ss at this time. HEENT: Reveals normocephalic, nontraumatic cranium. Pupils are equally round and reactive. Extraoc ular muscle movements intact. Nose and throat are slightly dry. NECK: Supple without masses, nodes, or bruits. LUNGS: Chest is clear to auscultation. No rales, rhonchi, or wheezes are heard. CARDIOVASCULAR: Reveals a regular rate and rhythm without murmurs, gallops, or rubs. ABDOMEN: Soft, nontender without organomegaly, normal bowel sounds are noted. No rebound or guardin g is noted. GENITOURINARY: Deferred. EXTREMITIES: Reveal no clubbing, cyanosis with trace edema. ASSESSMENT: 1. Chronic obstructive pulmonary disease with acute exacerbation, improved. 2. Methicillin-resistant Staphylococcus aureus, healthcare-associated, finished Zyvox on Saturday. 3. Generalized weakness. 4. Hypertension. 5. Coronary artery disease. 6. Hyperlipidemia. 7. Chronic obstructive pulmonary disease. 8. Hypothyroidism. 9. Peripheral vascular disease. 10. Chronic kidney disease, stage 3. 11. Obstructive sleep apnea and does not wear CPAP. 12. Generalized sinusitis. 13. Left iliac stent was replaced. PLAN: 1. Patient will finish her Zyvox on this Saturday. 2. The patient is continued to be on steroids 10 mg daily. We will need to wean that in the future. 3. Follow with patient's blood pressure closely. 4. Continue Pulmicort, budesonide. 5. Decubitus precautions. 6. DVT thrombosis prophylaxis. 7. Continue physical therapy and occupational therapy.
[2017-05-06] MEDS: ALPRAZolam 0.5 MG TAB PO PRN (21:32)
[2017-05-07] MEDS: Sodium Chloride 0.9% 1,000 ML IV SCH ×3 (00:40→21:08)
[2017-05-07] MEDS: Levothyroxine Sodium 50 MCG TAB PO SCH (05:53)
[2017-05-07] MEDS: Magnesium Oxide 400 MG TAB PO SCH (08:56)
[2017-05-07] MEDS: Aspirin 81 mg Enteric Coated Tablet PO SCH (08:56)
[2017-05-07] MEDS: Fluticasone Propionate Nasal Spray 16 gm Bottle NASAL SCH (08:56)
[2017-05-07] MEDS: Famotidine 20 MG TAB PO SCH (08:56)
[2017-05-07] MEDS: Benzonatate 100 MG CAP PO SCH ×3 (08:57→21:07)
[2017-05-07] MEDS: predniSONE 10 MG TAB PO SCH (08:57)
[2017-05-07] MEDS: Clopidogrel Bisulfate 75 MG TAB PO SCH (08:58)
[2017-05-07] MEDS: Budesonide 0.5 MG/2 ML NEB NEB SCH ×2 (08:59→21:07)
[2017-05-07] MEDS: Arformoterol 15 MCG/2 ML NEB NEB SCH ×2 (08:59→21:07)
[2017-05-07] MEDS: ALPRAZolam 0.5 MG TAB PO PRN (21:07)
[2017-05-07] MEDS: Acetaminophen 325 MG TAB PO PRN (21:10)
--- NOTE | 2017-05-07 21:24 | PRG ---
DATE OF ADMISSION: 04/19/2017 DATE OF SERVICE: 05/07/2017 SUBJECTIVE: Ms. Pulliam is a very pleasant 77-year-old white female who unfortunately presented he rself at [facility] with MRSA healthcare-acquired pneumonia. She eventually was stabilized and transferred to [facility] on Zyvox for 14 days, which was over the saturday. She had quite a bit of diarrhea and weakness last week and states she has been on the Zyvo x she is feeling much better. She had much better day today and physical therapy. I did talk with h er son this evening for 15 minutes about continue to get her aggressive physical therapy and get her stronger and encouraging her to eat. She has no complaints today. OBJECTIVE: VITAL SIGNS: Reveal blood pressure this morning 113/53, pulse 104 to 118, respirations 19 to 20, O2 sat 93% to 96%, and T-max 99.0. GENERAL: This is a well-developed, well-nourished, slightly obese white female in no apparent distre ss at this time. HEENT: Reveals normocephalic, nontraumatic cranium. Pupils are equally round and reactive. Extraoc ular movements intact. Nose and throat are slightly dry. NECK: Supple, without masses, nodes or bruits. LUNGS: Chest is clear to auscultation. No rales, rhonchi or wheezes are heard. CARDIOVASCULAR: Reveals a regular rate and rhythm without murmurs, gallops or rubs. ABDOMEN: Obese, soft, nontender, without organomegaly. Normal bowel sounds are noted. No rebound o r guarding is noted. GENITOURINARY: Deferred. EXTREMITIES: Reveal no clubbing, cyanosis with trace edema. ASSESSMENT: 1. Chronic obstructive pulmonary disease with acute exacerbation, much improved. 2. Methicillin-resistant Staphylococcus aureus healthcare associated pneumonia. The patient finishe d Zyvox last Saturday, has resolved. 3. Generalized weakness. 4. Hypertension. 5. Coronary artery disease. 6. Hyperlipidemia. 7. Chronic obstructive pulmonary disease. 8. Hypothyroidism. 9. Peripheral vascular disease. 10. Chronic kidney disease, stage 3. 11. Obstructive sleep apnea and does not wear CPAP. 12. Generalized sinusitis. 13. Left iliac stent replaced. PLAN: 1. The patient finished her Zyvox last Saturday. 2. The patient was continued on steroids 10 mg. 3. Follow the patient's blood pressure closely. 4. Encourage the patient to eat and not to skip meals. 5. Encourage the patient to drink liquids. 6. Continue Pulmicort and budesonide. 7. Decubitus precautions. 8. Deep vein thrombosis prophylaxis. 9. Continue physical therapy and occupational therapy.
[2017-05-08] MEDS: Levothyroxine Sodium 50 MCG TAB PO SCH (05:49)
[2017-05-08] MEDS: Sodium Chloride 0.9% 1,000 ML IV SCH ×2 (05:52→14:57)
[2017-05-08] MEDS: Arformoterol 15 MCG/2 ML NEB NEB SCH ×2 (09:09→20:52)
[2017-05-08] MEDS: Fluticasone Propionate Nasal Spray 16 gm Bottle NASAL SCH (09:09)
[2017-05-08] MEDS: Budesonide 0.5 MG/2 ML NEB NEB SCH ×2 (09:10→20:52)
[2017-05-08] MEDS: predniSONE 10 MG TAB PO SCH (09:11)
[2017-05-08] MEDS: Benzonatate 100 MG CAP PO SCH ×3 (09:12→20:51)
[2017-05-08] MEDS: Magnesium Oxide 400 MG TAB PO SCH (09:12)
[2017-05-08] MEDS: Aspirin 81 mg Enteric Coated Tablet PO SCH (09:13)
[2017-05-08] MEDS: Famotidine 20 MG TAB PO SCH (09:13)
[2017-05-08] MEDS: Clopidogrel Bisulfate 75 MG TAB PO SCH (09:13)
--- NOTE | 2017-05-09 01:14 | PRG ---
DATE OF SERVICE: 05/08/2017. SUBJECTIVE: Ms. Downs is a very pleasant 77-year-old white female. She presented to the emergency room at [facility] and was found to have MRSA health-acquired pneumonia. She ev entually was stabilized and transferred to [facility] and finished the Zyvox last Saturday. F rom the Zyvox, she got some diarrhea and some upset stomach and eventually since she has been off daly t, she began to do much better and work much better with physical therapy and occupational therapy. She has no complaints today. OBJECTIVE: VITAL SIGNS: Reveal blood pressure this morning was 117/58, pulse 91-95, respirations 18, O2 sat 93% on room air. T-max is 97.7. GENERAL: This is a well-developed, well-nourished, slightly obese white female in no apparent distre ss at this time. HEENT: Reveals normocephalic, nontraumatic cranium. Pupils are equally round and reactive. Extraoc ular movements are intact. Nose and throat are slightly dry. NECK: Supple, without masses, nodes or bruits. LUNGS: Chest is clear to auscultation. No rales, no rhonchi, no wheezes are heard. No cough is not ed. HEART: Reveals a regular rate and rhythm. No murmurs, gallops or rubs are noted. GENITOURINARY: Deferred. ABDOMEN: Soft, nontender, without organomegaly. Normal bowel sounds are heard in all 4 quadrants. No rebound or guarding is noted. : Deferred. EXTREMITIES: Reveal no clubbing, cyanosis or edema. ASSESSMENT: 1. Chronic obstructive pulmonary disease with acute exacerbation, much improved. 2. Methicillin-resistant Staphylococcus aureus healthcare-associated pneumonia. The patient finishe d Zyvox last Saturday. 3. Generalized weakness. 4. Hypertension. 5. Coronary artery disease. 6. Hyperlipidemia. 7. Hypothyroidism. 8. Peripheral vascular disease. 9. Chronic kidney disease stage 3. 10. Obstructive sleep apnea, does not wear CPAP. 11. Generalized sinusitis. 12. Left iliac stent placed. 13. Generalized weakness. PLAN: 1. Continue her steroids 10 mg daily. 2. Follow the patient's blood pressure closely. 3. Continue to encourage patient to eat and drink and not skip meals. 4. Continue to encourage patient to continue physical therapy and occupational therapy. 5. Stress ulcer prophylaxis. 6. Decubitus precautions. 7. DVT prophylaxis.
[2017-05-09] MEDS: Acetaminophen 325 MG TAB PO PRN ×2 (02:43→17:10)
[2017-05-09] MEDS: Sodium Chloride 0.9% 1,000 ML IV SCH ×2 (02:43→08:56)
[2017-05-09] MEDS: Levothyroxine Sodium 50 MCG TAB PO SCH (06:25)
[2017-05-09] MEDS: Fluticasone Propionate Nasal Spray 16 gm Bottle NASAL SCH (08:50)
[2017-05-09] MEDS: Arformoterol 15 MCG/2 ML NEB NEB SCH ×2 (08:51→21:02)
[2017-05-09] MEDS: Aspirin 81 mg Enteric Coated Tablet PO SCH (08:53)
[2017-05-09] MEDS: Benzonatate 100 MG CAP PO SCH ×4 (08:54→21:02)
[2017-05-09] MEDS: Clopidogrel Bisulfate 75 MG TAB PO SCH (08:54)
[2017-05-09] MEDS: Famotidine 20 MG TAB PO SCH (08:54)
[2017-05-09] MEDS: predniSONE 10 MG TAB PO SCH (08:55)
[2017-05-09] MEDS: Budesonide 0.5 MG/2 ML NEB NEB SCH ×2 (08:55→21:01)
[2017-05-09] MEDS: Magnesium Oxide 400 MG TAB PO SCH (08:55)
[2017-05-09] MEDS: Ondansetron ODT 4 MG TAB PO PRN (09:53)
--- NOTE | 2017-05-09 10:29 | PRG ---
DATE OF SERVICE: 05/09/2017 SUBJCETIVE: Ms. Pulliam is a very pleasant 77-year-old white female who presented to the emergency room at [facility]. She was found to have MRSA, health-acquired pneumonia. She was started on several IV antibiotics and eventually switched to Zyvox and was transferred here for a full 14 days of Zyvox. She is also transferred here for physical therapy and occupational therapy. The patient did actually very well initially and then had a decline where she had a viral gastroent eritis. She got dehydrated. I did have some extra fluids. We got over that and now she began to re vive and doing much better. She did walking a little bit further yesterday and she is sitting up in bed and looking more stable. She is also in a wheelchair and pushing herself around. OBJECITVE: VITAL SIGNS: Today reveal blood pressure 114/54, pulse 91 to 95, respirations 20 to 22, O2 sat 92%, T-max 97.2. GENERAL: This is a well-developed, well-nourished, obese white female, in no apparent distress at th is time. HEENT: Reveals normocephalic, nontraumatic cranium. Pupils equal, round, and reactive. Extraocular movements intact. Nose and throat are still slightly dry, but clear. NECK: Supple, without masses, nodes or bruits. CHEST: Clear to auscultation. No rales, rhonchi or wheezes are heard. CARDIOVASCULAR: Heart reveals a regular rate and rhythm without murmurs, gallops or rubs. ABDOMEN: Soft, nontender, without organomegaly, normal bowel sounds are noted. No rebound or guardi ng is noted. EXTREMITIES: Reveal no clubbing, cyanosis or edema. The patient's strengthening therapy is improvin g. GENITOURINARY: Deferred. EXTREMITIES: Reveal no clubbing, cyanosis or edema. ASSESSMENT: 1. Chronic obstructive pulmonary disease, much improved with acute exacerbation. 2. Methicillin-resistant Staphylococcus aureus, resolved. The patient was taking her Z[place]vox [place] [facility] [place]. 3. Generalized weakness. 4. Hypertension. 5. Coronary artery disease. 6. Hyperlipidemia. 7. Hypothyroidism. 8. Peripheral vascular disease. 9. Chronic kidney disease stage 3. 10. Obstructive sleep apnea. The patient refuses to wear CPAP. 11. Generalized sinusitis, resolved. 12. Left iliac stent, recently placed. PLAN: 1. Continue present medications. 2. Encouraged the patient to eat little bit better every day and drink lots of liquids. 3. Follow the patient's blood pressure closely. 4. Continue to give her steroids 10 mg daily. 5. Continue PT and OT. 6. Stress ulcer prophylaxis. 7. Decubitus precautions. 8. Deep venous thrombosis prophylaxis. 9. Physical therapy and occupational therapy.
[2017-05-09] MEDS: ALPRAZolam 0.5 MG TAB PO PRN (21:04)
[2017-05-10] MEDS: Sodium Chloride 0.9% 1,000 ML IV SCH ×3 (03:07→15:16)
[2017-05-10] MEDS: Levothyroxine Sodium 50 MCG TAB PO SCH (05:53)
[2017-05-10] MEDS: Fluticasone Propionate Nasal Spray 16 gm Bottle NASAL SCH (08:37)
[2017-05-10] MEDS: Arformoterol 15 MCG/2 ML NEB NEB SCH (08:37)
[2017-05-10] MEDS: Budesonide 0.5 MG/2 ML NEB NEB SCH ×2 (08:37→21:11)
[2017-05-10] MEDS: Magnesium Oxide 400 MG TAB PO SCH (08:38)
[2017-05-10] MEDS: Benzonatate 100 MG CAP PO SCH ×3 (08:38→21:11)
[2017-05-10] MEDS: Famotidine 20 MG TAB PO SCH (08:38)
[2017-05-10] MEDS: Aspirin 81 mg Enteric Coated Tablet PO SCH (08:38)
[2017-05-10] MEDS: predniSONE 10 MG TAB PO SCH (08:39)
[2017-05-10] MEDS: Clopidogrel Bisulfate 75 MG TAB PO SCH (08:40)
[2017-05-10] MEDS: ALPRAZolam 0.5 MG TAB PO PRN (21:11)
--- NOTE | 2017-05-10 23:18 | PRG ---
DATE OF ADMISSION: 04/19/2017 DATE OF SERVICE: 05/10/2017 SUBJECTIVE: Ms. Pulliam is a very pleasant 77-year-old white female that presented to [facility] Emergency Room and was found to have MRSA health-acquired pneumonia. She was started on vancomycin and several other IV antibiotics and eventually it was switched to Zyvox. She was then transferred to [facility] for a full 14-day cough with Zyvox and for ph ysical therapy and occupational therapy. Before the patient finished her Zoloft, she became very weak and had diarrhea and abdominal cramps, m ost likely from the Zyvox. She did finish her Zyvox and then started getting much better. She is re newed with her strength and eating better and is doing much better with her physical therapy. OBJECTIVE: VITAL SIGNS: Reveal blood pressure this morning 107/53, pulse 94-110, respirations 18, O2 sat 93%. T-max 96.8. GENERAL: This is a well-developed, well-nourished, morbidly obese white female, in no apparent distr ess at this time. HEENT: Reveals normocephalic, nontraumatic cranium. Pupils are equally round and reactive. Extraoc ular movements are intact. Nose and throat are slightly dry. NECK: Supple, without masses, nodes or bruits. LUNGS: Chest is clear to auscultation. No rales, no rhonchi, no wheezes are heard. CARDIOVASCULAR: Heart reveals a regular rate and rhythm without murmurs, gallops or rubs. ABDOMEN: Soft, nontender, without organomegaly. Normal bowel sounds are noted in all 4 quadrants. No rebound or guarding is noted. GENITOURINARY: Deferred. EXTREMITIES: Reveal no clubbing, cyanosis or edema. NEUROLOGIC: The patient is getting better strengthening in her lower extremities, and she is walking a little bit farther every day. IMPRESSION: 1. Chronic obstructive pulmonary disease with acute exacerbation, improved. 2. Methicillin-resistant Staphylococcus aureus Staph, resolved. The patient has finished 14 days of Zyvox last week. 3. Generalized weakness. 4. Hypertension. 5. Coronary artery disease. 6. Hyperlipidemia. 7. Hypothyroidism. 8. Peripheral vascular disease. 9. Chronic kidney disease, stage 3. 10. Obstructive sleep apnea, but the patient refused to wear her CPAP. 11. Generalized sinusitis, resolved. 12. Left iliac stent recently placed. PLAN: 1. Continue present medications. 2. Encourage the patient to eat and drink a little bit better. 3. Follow the patient's blood pressure closely. 4. Continue steroids at 10 mg daily. 5. Continue physical therapy and occupational therapy. 6. Stress ulcer prophylaxis. 7. Decubitus precautions. 8. Deep venous thrombosis prophylaxis.
[2017-05-11] MEDS: Sodium Chloride 0.9% 1,000 ML IV SCH ×2 (04:58→17:52)
[2017-05-11] MEDS: Levothyroxine Sodium 50 MCG TAB PO SCH (06:02)
[2017-05-11] MEDS: Fluticasone Propionate Nasal Spray 16 gm Bottle NASAL SCH (08:27)
[2017-05-11] MEDS: Magnesium Oxide 400 MG TAB PO SCH (08:28)
[2017-05-11] MEDS: Benzonatate 100 MG CAP PO SCH ×3 (08:28→21:52)
[2017-05-11] MEDS: Aspirin 81 mg Enteric Coated Tablet PO SCH (08:28)
[2017-05-11] MEDS: Arformoterol 15 MCG/2 ML NEB NEB SCH (08:28)
[2017-05-11] MEDS: Famotidine 20 MG TAB PO SCH (08:28)
[2017-05-11] MEDS: Clopidogrel Bisulfate 75 MG TAB PO SCH (08:29)
[2017-05-11] MEDS: predniSONE 10 MG TAB PO SCH (08:29)
--- NOTE | 2017-05-11 08:42 | PRG ---
DATE OF SERVICE: 05/11/2017 DATE OF ADMISSION: 04/19/2017 HISTORY OF PRESENT ILLNESS: Ms. Pulliam is a 77-year-old white female that went to the ER at [facility] and was found to have MRSA health-acquired pneumonia. She was started on I V antibiotics including vancomycin and eventually switched to Zyvox. She was transferred to [facility] for a full 14-day course of Zyvox. She is extremely weak and is here also for [employer] sical therapy and occupational therapy and seems to be significantly improving. SUBJECTIVE: The patient has no complaints today, states she is eating a little bit better and gettin g stronger every day. PHYSICAL EXAMINATION: VITAL SIGNS: Reveal blood pressure this morning was 104/55, pulse 90-93, respirations 16-18, O2 sat 93%, T-max 98.6. GENERAL: This is a well-developed, well-nourished, slightly obese white female in no apparent distre ss at this time. HEENT: Reveals normocephalic, nontraumatic cranium. Pupils are equally round and reactive. Extraoc ular movements are intact. Nose and throat are moist this morning. NECK: Supple, without masses, nodes or bruits. CHEST: Clear to auscultation. No rales, no rhonchi, no wheezes or cough is heard. HEART: Reveals a regular rate and rhythm without murmurs, gallops or rubs. ABDOMEN: Soft and nontender without organomegaly, normal bowel sounds are noted in all 4 quadrants. No rebound or guarding is noted. GENITOURINARY: Deferred. EXTREMITIES: Reveal no clubbing, cyanosis or edema. NEUROLOGIC: The patient continues to slowly get better. IMPRESSION: 1. Chronic obstructive pulmonary disease with acute exacerbation, much improved. 2. Methicillin-resistant Staphylococcus aureus, patient has finished 14 days of Zyvox and she is off of that. 3. Generalized weakness. 4. Hypertension. 5. Coronary artery disease. 6. Hyperlipidemia. 7. Hypothyroidism. 8. Peripheral vascular disease. 9. Chronic kidney disease stage 3. 10. Obstructive sleep apnea, but the patient refused to wear continuous positive airway pressure. 11. Generalized sinusitis, resolved. 12. Left iliac stent recently placed. 13. Generalized weakness. PLAN: 1. Continue present meds. 2. Continue to encourage patient to get out of bed and walk with the nurses this weekend and stay in the wheelchair as much as possible pushing herself around. 3. Continue to follow the patient's blood pressure. 4. Continue stress ulcer prophylaxis. 5. Decubitus precautions. 6. DVT precautions. 7. Physical therapy and occupational therapy.
[2017-05-11] MEDS: ALPRAZolam 0.5 MG TAB PO PRN (21:52)
[2017-05-11] MEDS: Budesonide 0.5 MG/2 ML NEB NEB SCH (21:52)
[2017-05-12] MEDS: Sodium Chloride 0.9% 1,000 ML IV SCH ×3 (02:58→21:20)
[2017-05-12] MEDS: Levothyroxine Sodium 50 MCG TAB PO SCH (06:28)
[2017-05-12] MEDS: Fluticasone Propionate Nasal Spray 16 gm Bottle NASAL SCH (08:16)
[2017-05-12] MEDS: Arformoterol 15 MCG/2 ML NEB NEB SCH (08:16)
[2017-05-12] MEDS: predniSONE 10 MG TAB PO SCH (08:17)
[2017-05-12] MEDS: Aspirin 81 mg Enteric Coated Tablet PO SCH (08:17)
[2017-05-12] MEDS: Clopidogrel Bisulfate 75 MG TAB PO SCH (08:17)
[2017-05-12] MEDS: Benzonatate 100 MG CAP PO SCH ×3 (08:17→21:21)
[2017-05-12] MEDS: Famotidine 20 MG TAB PO SCH (08:17)
[2017-05-12] MEDS: Magnesium Oxide 400 MG TAB PO SCH (08:17)
--- NOTE | 2017-05-12 09:09 | PRG ---
DATE OF SERVICE: 05/12/2017 DATE OF ADMISSION: 04/19/2017 HISTORY OF PRESENT ILLNESS: Ms. Pulliam is a very pleasant 77-year-old white female that presented to the emergency room at [facility] with MRSA-acquired pneumonia. She was started on IV vancomycin and eventually switched to Zyvox. She was transferred to [facility] to finish out her 14-day course of Zyvox. On arrival, she was extremely weak, but progressed significantly. SUBJECTIVE: The patient states she is doing well this morning. She did walk a little bit yesterday. She spent some time up in a wheelchair. PHYSICAL EXAMINATION: VITAL SIGNS: This morning reveal blood pressure 97/52, pulse 91-98, respirations 20, O2 sat 93%-94%, T-max 97.0. GENERAL: This is a well-developed, well-nourished, obese white female in no apparent distress at this time. HEENT: Reveals normocephalic, nontraumatic cranium. Pupils are equally round and reactive. Extraocular movements are intact. Nose and throat are dry this morning. NECK: Supple, without mass, nodes or bruits. LUNGS: Chest is clear to auscultation. No rales, rhonchi or wheezes, or cough is heard. HEART: Reveals a regular rate and rhythm. No murmurs, gallops or rubs are noted. ABDOMEN: Obese, soft, nontender, without organomegaly. Normal bowel sounds are noted. No rebound or guarding is noted. GENITOURINARY: Deferred. EXTREMITIES: Reveal no clubbing, cyanosis or edema. NEUROLOGIC: Patient is stable, just continues to slowly get better. IMPRESSION AND PLAN: 1. Chronic obstructive pulmonary disease with acute exacerbation, improved. 2. Methicillin-resistant Staphylococcus aureus, patient has finished her 14 days of Zyvox. 3. Generalized weakness secondary to severe chronic obstructive pulmonary disease and methicillin-resistant Staphylococcus aureus pneumonia. 4. Hypertension. 5. Coronary artery disease 6. Hyperlipidemia. 7. Hypothyroidism. 8. Peripheral vascular disease. 9. Chronic kidney disease stage 3. 10. Obstructive sleep apnea. Unfortunately, the patient refused to wear her continuous positive airway pressure. 11. Generalized sinusitis, resolved. 12. Recent placement of left iliac stent. Plan: 1. Continue with physical therapy. 2. Continue to get the patient out of bed, stay in a wheelchair or in bed. 3. Follow the patient's blood pressure closely. 4. Stress ulcer prophylaxis. 5. Decubitus precautions. 6. DVT precautions. 7. Physical therapy and occupational therapy. MTDD
[2017-05-12] MEDS: ALPRAZolam 0.5 MG TAB PO PRN (21:21)
[2017-05-12] MEDS: Budesonide 0.5 MG/2 ML NEB NEB SCH (21:21)
[2017-05-13] MEDS: Levothyroxine Sodium 50 MCG TAB PO SCH (06:24)
[2017-05-13] MEDS: Sodium Chloride 0.9% 1,000 ML IV SCH ×2 (06:26→14:59)
[2017-05-13] MEDS: Arformoterol 15 MCG/2 ML NEB NEB SCH (08:45)
[2017-05-13] MEDS: Famotidine 20 MG TAB PO SCH (08:46)
[2017-05-13] MEDS: Aspirin 81 mg Enteric Coated Tablet PO SCH (08:46)
[2017-05-13] MEDS: Clopidogrel Bisulfate 75 MG TAB PO SCH (08:46)
[2017-05-13] MEDS: Benzonatate 100 MG CAP PO SCH ×3 (08:46→20:45)
[2017-05-13] MEDS: Magnesium Oxide 400 MG TAB PO SCH (08:46)
[2017-05-13] MEDS: predniSONE 10 MG TAB PO SCH (08:47)
[2017-05-13] MEDS: Acetaminophen 325 MG TAB PO PRN (08:47)
[2017-05-13] MEDS: Fluticasone Propionate Nasal Spray 16 gm Bottle NASAL SCH (09:02)
[2017-05-13] MEDS: Cepastat Lozenges 1 LOZ PO PRN ×2 (13:28→20:45)
[2017-05-13] MEDS: Budesonide 0.5 MG/2 ML NEB NEB SCH (20:45)
[2017-05-13] MEDS: ALPRAZolam 0.5 MG TAB PO PRN (20:45)
--- NOTE | 2017-05-13 22:59 | PRG ---
DATE OF SERVICE: 05/13/2017. HISTORY: Ms. Pulliam is a very pleasant 77-year-old white female that initially presented to the e mergency room at [facility] with MRSA-acquired pneumonia. She was started on IV vancomycin and eventually switched to Zyvox. She was transferred to [facility] to fi kevon out 14-day course of Zyvox. On arrival, she was very weak and had difficulty standing in taking the steps. She was referred to physical therapy and occupational therapy for intense strengthening. SUBJECTIVE: The patient states she is doing better today. She is worried that she may not be strong enough to go home by the end of the week. We had a discussion that we need to work as hard as she c an and would do the best we can. PHYSICAL EXAMINATION: VITAL SIGNS: Blood pressure 110/54, pulse 93-114, respirations 18-22, O2 sat 93-94%, T-max 97.3. GENERAL: This is a well-developed, well-nourished, very pleasant white female in no apparent distres s at this time. HEENT: Reveals normocephalic, nontraumatic cranium. Pupils are equal, round, and reactive. Extraoc ular movements intact. Nose and throat are slightly dry, but clear. NECK: Supple, without masses, nodes or bruits. LUNGS: Chest is clear to auscultation. No rales, rhonchi or wheezes are noted. No cough is heard. CARDIOVASCULAR: Reveals a regular rate and rhythm without murmurs, gallops or rubs. ABDOMEN: Obese, soft, nontender, without organomegaly. Normal bowel sounds are noted in all 4 quadr ants. No rebound or guarding is noted. : Deferred. EXTREMITIES: Reveal no clubbing, cyanosis or edema. NEUROLOGIC: The patient is stable, just weak. IMPRESSION: 1. Chronic obstructive pulmonary disease with acute exacerbation, much improved. 2. Methicillin-resistant Staphylococcus aureus. The patient has finished 14 days of Zyvox. 3. Generalized weakness secondary to severe chronic obstructive pulmonary disease. 4. Hypertension. 5. Coronary artery disease. 6. Hyperlipidemia. 7. Hypothyroidism. 8. Peripheral vascular disease. 9. Chronic kidney disease stage 3. 10. Obstructive sleep apnea where the patient refused to wear her CPAP. 11. Generalized sinusitis, resolved. 12. Recent placement of stent. PLAN: 1. Continue present medications. 2. Follow the patient's blood pressure closely. 3. Encourage the patient to participate strongly in physical therapy and occupational therapy. 4. Stress ulcer prophylaxis. 5. Decubitus precautions. 6. DVT precautions. 7. Physical therapy and occupational therapy. 8. When the patient is not in therapy, try to keep her in a wheelchair or in a regular chair and out of bed.
[2017-05-14] MEDS: Sodium Chloride 0.9% 1,000 ML IV SCH ×3 (03:19→23:07)
[2017-05-14] MEDS: Levothyroxine Sodium 50 MCG TAB PO SCH (05:34)
[2017-05-14] MEDS: Fluticasone Propionate Nasal Spray 16 gm Bottle NASAL SCH (09:02)
[2017-05-14] MEDS: Benzonatate 100 MG CAP PO SCH ×3 (09:02→21:00)
[2017-05-14] MEDS: Famotidine 20 MG TAB PO SCH (09:02)
[2017-05-14] MEDS: Clopidogrel Bisulfate 75 MG TAB PO SCH (09:03)
[2017-05-14] MEDS: Aspirin 81 mg Enteric Coated Tablet PO SCH (09:03)
[2017-05-14] MEDS: predniSONE 10 MG TAB PO SCH (09:03)
[2017-05-14] MEDS: Magnesium Oxide 400 MG TAB PO SCH (09:03)
[2017-05-14] MEDS: Arformoterol 15 MCG/2 ML NEB NEB SCH (09:04)
[2017-05-14] MEDS: Cepastat Lozenges 1 LOZ PO PRN ×2 (09:09→21:03)
--- NOTE | 2017-05-14 14:25 | PRG ---
DATE OF SERVICE: 05/14/2017 DATE OF ADMISSION: 04/19/2017 HISTORY OF PRESENT ILLNESS: Ms. Pulliam is a pleasant 77-year-old white female that presented to [facility] with MRSA pneumonia. She was treated initially with vancomycin and the n switched over to Zosyn which she finished 14 days of here. The patient has been very weak and is h ere mainly for physical therapy and occupational therapy now. She has actually been doing very well except for today. The patient states she feels lousy today. She states she is only able to walk till the nurse's stati on and was very pooped out and tired. She states she did not eat very well either today. PHYSICAL EXAMINATION: VITAL SIGNS: Reveal blood pressure this morning 119/58, pulse 91-92, respirations 18, O2 sat 93%-94% , T-max 97.8. GENERAL: This is a well-developed, well-nourished, very pleasant, mildly obese white female in no ap parent distress at this time. HEENT: Reveals normocephalic, nontraumatic cranium. Pupils are equally round and reactive. Extraoc ular movements are intact. Nose and throat are slightly dry. NECK: Supple, without masses, nodes or bruits. CHEST: Clear to auscultation. No rales, rhonchi or wheezes are heard. HEART: Reveals a regular rate and rhythm without murmurs, gallops or rubs. ABDOMEN: Soft, nontender, without organomegaly. Normal bowel sounds are noted. No rebound or guard ing is noted. GENITOURINARY: Deferred. EXTREMITIES: Reveal no clubbing, cyanosis or edema. ASSESSMENT: 1. Generalized weakness today, unknown etiology. 2. Chronic obstructive pulmonary disease acute exacerbation, much improved. 3. Methicillin-resistant Staphylococcus aureus pneumonia, resolved. 4. Hypertension. 5. Coronary artery disease. 6. Hyperlipidemia. 7. Hypothyroidism. 8. Peripheral vascular disease. 9. Chronic kidney disease stage 3. 10. Obstructive sleep apnea, but patient refuses to wear continuous positive airway pressure at [facility]. 11. Generalized sinusitis. 12. Recent stent placement. PLAN: 1. Encourage the patient to get up and stay out of bed as much as possible today in a wheelchair at least. 2. Continue to monitor the blood pressure closely. 3. Continue physical therapy and occupational therapy. 4. Stress ulcer prophylaxis. 5. Decubitus precautions. 6. DVT precautions. PLAN: The patient is scheduled to be discharged most likely on Saturday. The patient has pretty muc h reached maximum medical benefit here.
[2017-05-14] MEDS: Budesonide 0.5 MG/2 ML NEB NEB SCH (20:59)
[2017-05-14] MEDS: ALPRAZolam 0.5 MG TAB PO PRN (21:00)
[2017-05-14] MEDS: Acetaminophen 325 MG TAB PO PRN (21:03)
[2017-05-15] MEDS: Levothyroxine Sodium 50 MCG TAB PO SCH (05:58)
[2017-05-15] MEDS: Arformoterol 15 MCG/2 ML NEB NEB SCH (08:53)
[2017-05-15] MEDS: Famotidine 20 MG TAB PO SCH (08:54)
[2017-05-15] MEDS: Benzonatate 100 MG CAP PO SCH ×3 (08:54→20:44)
[2017-05-15] MEDS: Clopidogrel Bisulfate 75 MG TAB PO SCH (08:54)
[2017-05-15] MEDS: predniSONE 10 MG TAB PO SCH (08:54)
[2017-05-15] MEDS: Aspirin 81 mg Enteric Coated Tablet PO SCH (08:55)
[2017-05-15] MEDS: Magnesium Oxide 400 MG TAB PO SCH (08:55)
[2017-05-15] MEDS: Sodium Chloride 0.9% 1,000 ML IV SCH ×3 (08:56→20:46)
[2017-05-15] MEDS: Fluticasone Propionate Nasal Spray 16 gm Bottle NASAL SCH (08:57)
[2017-05-15] MEDS: Cepastat Lozenges 1 LOZ PO PRN (20:44)
[2017-05-15] MEDS: Acetaminophen 325 MG TAB PO PRN (20:44)
[2017-05-15] MEDS: Budesonide 0.5 MG/2 ML NEB NEB SCH (20:45)
--- NOTE | 2017-05-16 02:12 | PRG ---
DATE OF SERVICE: 05/15/2017 SUBJECTIVE: The patient is a 77-year-old white female that was seen in [facility] with methicillin-resistant Staphylococcus aureus pneumonia. She was treated with IV vancomycin and was eventually switched to Zosyn. She was transferred to [facility] for swing be d for physical therapy, occupational therapy, and Zyvox for 14 days. She finished her Zyvox and doin g well. The patient states she is doing well. She walked much better today without her walker probably 50 fe et. She is going to be discharged on Saturday morning. OBJECTIVE: VITAL SIGNS: Reveal blood pressure 122/56, pulse 89-99, respirations 18-20, O2 sat 96% on room air. T-max 97.0. GENERAL: This is a well-developed, well-nourished, very pleasant white female, in no apparent distre ss at this time. HEENT: Reveals normocephalic, nontraumatic cranium. Pupils are equally round and reactive. Extraoc ular movements intact. Nose and throat are slightly dry. NECK: Supple without mass, nodes or bruits. CHEST: Clear to auscultation. No rales, rhonchi or wheezes are heard. CARDIOVASCULAR: Reveals a regular rate and rhythm without murmurs, gallops or rubs. ABDOMEN: Soft, obese, and nontender without organomegaly. Normal bowel sounds are noted. No reboun d or guarding is noted. GENITOURINARY: Deferred. EXTREMITIES: Reveal no clubbing, cyanosis or edema. The patient has generalized weakness. ASSESSMENT: 1. Generalized weakness, much improved. 2. Chronic obstructive pulmonary disease with acute exacerbation, much improved. 3. Methicillin-resistant Staphylococcus aureus pneumonia, resolved. 4. Hypertension. 5. Coronary artery disease. 6. Hyperlipidemia. 7. Hypothyroidism. 8. Peripheral vascular disease. 9. Chronic kidney disease stage 3. 10. Obstructive sleep apnea, but the patient refuses CPAP. 11. Generalized sinusitis. 12. Recent stent placement. 13. Generalized weakness. PLAN: 1. Encourage the patient continues to ambulate as much as possible. 2. Continue to encourage the patient to walk. 3. Continue to monitor the patient's blood pressure closely. 4. Continue stress ulcer prophylaxis. 5. Decubitus precautions. 6. DVT precautions. 7. Physical therapy and occupational therapy. 8. The patient most likely is doing very well, will be discharged on Saturday.
[2017-05-16] MEDS: Levothyroxine Sodium 50 MCG TAB PO SCH (05:26)
[2017-05-16] MEDS: Fluticasone Propionate Nasal Spray 16 gm Bottle NASAL SCH (09:15)
[2017-05-16] MEDS: predniSONE 10 MG TAB PO SCH (09:16)
[2017-05-16] MEDS: Clopidogrel Bisulfate 75 MG TAB PO SCH (09:16)
[2017-05-16] MEDS: Arformoterol 15 MCG/2 ML NEB NEB SCH (09:16)
[2017-05-16] MEDS: Magnesium Oxide 400 MG TAB PO SCH (09:17)
[2017-05-16] MEDS: Aspirin 81 mg Enteric Coated Tablet PO SCH (09:17)
[2017-05-16] MEDS: Famotidine 20 MG TAB PO SCH (09:17)
[2017-05-16] MEDS: Benzonatate 100 MG CAP PO SCH ×3 (09:17→21:47)
[2017-05-16] MEDS: Ondansetron ODT 4 MG TAB PO PRN (15:24)
[2017-05-16] MEDS: Sodium Chloride 0.9% 1,000 ML IV SCH ×2 (20:21→23:46)
[2017-05-16] MEDS: Budesonide 0.5 MG/2 ML NEB NEB SCH (21:47)
[2017-05-16] MEDS: ALPRAZolam 0.5 MG TAB PO PRN (21:48)
--- NOTE | 2017-05-17 01:17 | PRG ---
DATE OF SERVICE: 05/16/2017 HISTORY OF PRESENT ILLNESS: Ms. Pulliam is a very pleasant 77-year-old white female seen in the em ergency room at [facility] with MRSA pneumonia. She was treated with IV vancomycin, eventually switched over to Zosyn. She was transferred to [facility] swing bed for physical the rapy and occupational therapy and Zyvox for 14 days. She finished the Zyvox and has continued her PT and OT. The patient was doing fairly well until she got a GI bug which knocked her back quite a bit. She is now recovering and doing well. She is beginning to walk much better, most likely will be discharged Saturday morning. OBJECTIVE: VITAL SIGNS: Reveal blood pressure 130/64, pulse 83-94, respirations 18-20, O2 sat 94-97%, T-max 97. 0. GENERAL: This is a well-developed, well-nourished, slightly obese white female in no apparent distre ss at this time. HEENT: Reveals normocephalic and nontraumatic cranium. Pupils are equally round and reactive. Extr aocular movements are intact. Nose and throat are moist. NECK: Supple, without masses, nodes, or bruits. CHEST: Clear to auscultation. No rales, rhonchi, wheezes, or cough is heard. HEART: Reveals a regular rate and rhythm without murmurs, gallops, or rubs. ABDOMEN: Obese, soft, nontender, without organomegaly. Normal bowel sounds are noted in all 4 quadr ants. No rebound or guarding is noted. GENITOURINARY: Deferred. EXTREMITIES: Reveal no clubbing, cyanosis, or edema, just generalized weakness. IMPRESSION: 1. Chronic obstructive pulmonary disease with acute exacerbation, much improved. 2. Methicillin-resistant Staphylococcus aureus pneumonia, resolved. 3. Hypertension. 3. Coronary artery disease. 4. Hyperlipidemia. 5. Hypothyroidism. 6. Peripheral vascular disease. 7. Chronic kidney disease, stage 3. 8. Obstructive sleep apnea, but the patient refuses her CPAP. 9. Generalized weakness. 10. Recent stent placement. PLAN: 1. Continue to ambulate as much as possible. 2. Encourage the patient to eat and drink. Encourage the patient to walk. 4. Monitor the patient's blood pressure closely. 5. Continue stress ulcer prophylaxis. 5. Continue decubitus precautions. 6. DVT precautions. 7. Physical therapy and occupational therapy. 8. If the patient is doing well, most likely will be discharged on Saturday.
[2017-05-17] MEDS: Levothyroxine Sodium 50 MCG TAB PO SCH (06:05)
[2017-05-17] MEDS: Fluticasone Propionate Nasal Spray 16 gm Bottle NASAL SCH (08:37)
[2017-05-17] MEDS: predniSONE 10 MG TAB PO SCH (08:37)
[2017-05-17] MEDS: Clopidogrel Bisulfate 75 MG TAB PO SCH (08:38)
[2017-05-17] MEDS: Aspirin 81 mg Enteric Coated Tablet PO SCH (08:38)
[2017-05-17] MEDS: Magnesium Oxide 400 MG TAB PO SCH (08:38)
[2017-05-17] MEDS: Benzonatate 100 MG CAP PO SCH ×3 (08:38→20:37)
[2017-05-17] MEDS: Famotidine 20 MG TAB PO SCH (08:39)
[2017-05-17] MEDS: Arformoterol 15 MCG/2 ML NEB NEB SCH (08:42)
[2017-05-17] MEDS: Sodium Chloride 0.9% 1,000 ML IV SCH ×2 (08:48→17:21)
[2017-05-17] MEDS: Budesonide 0.5 MG/2 ML NEB NEB SCH (20:35)
[2017-05-17] MEDS: ALPRAZolam 0.5 MG TAB PO PRN (20:37)
--- NOTE | 2017-05-18 02:46 | DIS ---
DATE OF ADMISSION: 04/19/2017 DATE OF DISCHARGE: 05/18/2017 Ms. Pulliam is a very pleasant 77-year-old white female, who presented initially to [facility] ER with pneumonia. She was determined to have MRSA and was started on vancomycin. She eventually went to several antibiotics, were switched over to Zosyn. She was then switched to Zyvox and transferred to [facility] for 14 days of Zyvox and continued physical therapy and occupational therapy. The patient was finishing her Zyvox, but at the end of it, it became sick with some kind of viral gastroenteritis. She got much weaker and required an extra several days stay for physical therapy and occupational therapy to get her up and walking again. She lives alone and she was not able meet her ADLs to be able to go home and stay independent. She is actually doing very well, walking with a walker and very conscientious about being safe. She has now reached maximum medical benefit and is ready for discharge home. Vital signs today reveal blood pressure 140/62, pulse 83 to 90, respirations 18 to 20, O2 sat 94%, and T-max 96.6. Last laboratories about a week ago were all normal. DISCHARGE MEDICATIONS: Reveal the patient will be discharged on the following medications, which include Plavix 75 mg every day, aspirin 81 mg a day, Diltiazem 120 mg CD once a day, Avapro 300 mg a day, Levothyroxine 50 mcg a day, Sertraline 50 mg a day.Pepcid [id number] 20 mg a day p.r.n., Fluticasone nasal spray p.r.n., Pepcid [id number] 20 mg a day p.r.n., Magnesium oxide 400 mg a day, Vitamin D3 of 1000 mg a daily, Tylenol p.r.n., PHYSICAL EXAMINATION: GENERAL: This is a well-developed, well-nourished, slightly obese white female in no apparent distress at this time. HEENT: Reveals normocephalic, nontraumatic cranium. Pupils are equally round and reactive. Extraocular movements are intact. Nose and throat are slightly dry. NECK: Supple, without masses, nodes or bruits. CHEST: Clear to auscultation. No rales, no rhonchi, no wheezes are heard. HEART: Reveals a regular rate and rhythm without murmurs, gallops or rubs. ABDOMEN: Soft, nontender, without organomegaly. Normal bowel sounds are noted. No rebound or guarding is noted. GENITOURINARY: Deferred. EXTREMITIES: Reveals generalized weakness, but much improved. No clubbing, cyanosis or edema was noted. IMPRESSION: 1. Chronic obstructive pulmonary disease with acute exacerbation, improved. 2. Methicillin-resistant Staphylococcus aureus pneumonia, resolved. 3. Hypertension. 4. Coronary artery disease. 5. Hyperlipidemia. 6. Hypothyroidism. 7. Peripheral vascular disease. 8. Chronic kidney disease, stage 3. 9. Obstructive sleep apnea, but the patient refuses CPAP. 10. Generalized weakness. 11. Recent stent placement. PLAN: 1. Continue to ambulate as much as possible. 2. Encourage the patient to eat and drink. 3. Encourage the patient to monitor blood pressures at home. 4. Continue stress ulcer prophylaxis. 5. Continue decubitus precautions. 6. Continue DVT precautions. 7. Physical therapy and occupational therapy. 8. Plavix 75 mg and sertraline 50 mg are send to [facility] pharmacy and the patient will be able to pick them tonight or tomorrow. 9. The patient will be discharged tomorrow morning about 9 a.m. to the care of her son, Da. 10. The patient will make an appointment with me within the next week. 11. The patient will get an appointment with retinal surgeon and animal keeper head at [facility]. The patient wishes not return to [facility]. JEY
[2017-05-18] MEDS: Sodium Chloride 0.9% 1,000 ML IV SCH (05:24)
[2017-05-18] MEDS: Levothyroxine Sodium 50 MCG TAB PO SCH (06:06)
[2017-05-18 08:13] VITALS: BP 116/58; TEMP 96.4
[2017-05-18] MEDS: Famotidine 20 MG TAB PO SCH (09:17)
[2017-05-18] MEDS: Clopidogrel Bisulfate 75 MG TAB PO SCH (09:17)
[2017-05-18] MEDS: Magnesium Oxide 400 MG TAB PO SCH (09:17)
[2017-05-18] MEDS: predniSONE 10 MG TAB PO SCH (09:18)
[2017-05-18] MEDS: Benzonatate 100 MG CAP PO SCH (09:18)
[2017-05-18] MEDS: Aspirin 81 mg Enteric Coated Tablet PO SCH (09:18)
[2017-05-18] MEDS: Arformoterol 15 MCG/2 ML NEB NEB SCH (09:19)
[2017-05-18] MEDS: Fluticasone Propionate Nasal Spray 16 gm Bottle NASAL SCH (09:24)
== END 2017-05-18 11:15 | disposition home health service (06) | DRG 178 ==
LOC: NAV ACUTE 12:12
PROVIDERS: ADMIT Family Medicine; ATTEND Family Medicine
DX: J15.212 Pneumonia due to Methicillin resistant Staphylococcus aureus (principal); J44.0 Chronic obstructive pulmonary disease with (acute) lower respiratory infection; N18.3 Chronic kidney disease, stage 3 (moderate); J44.1 Chronic obstructive pulmonary disease with (acute) exacerbation; E03.9 Hypothyroidism, unspecified; E78.5 Hyperlipidemia, unspecified; I12.9 Hypertensive chronic kidney disease with stage 1 through stage 4 chronic kidney disease, or unspecified chronic kidney disease; I73.9 Peripheral vascular disease, unspecified; G47.33 Obstructive sleep apnea (adult) (pediatric); E66.9 Obesity, unspecified; I25.10 Atherosclerotic heart disease of native coronary artery without angina pectoris; J32.9 Chronic sinusitis, unspecified; R09.02 Hypoxemia; Z68.34 Body mass index [BMI] 34.0-34.9, adult; Z88.0 Allergy status to penicillin; Z88.2 Allergy status to sulfonamides; Z95.5 Presence of coronary angioplasty implant and graft; Z82.49 Family history of ischemic heart disease and other diseases of the circulatory system; Z82.3 Family history of stroke
CPT/HCPCS: 36415; 36416; 71010; 71046; 80048; 80053; 81001; 83880; 85025; 94640; A4216; J2405; J7050; J7512; J7620; J7626; Q0162

== ENCOUNTER 2018-12-11 08:34 | Emergency (ER) | payer MEDICARE ==
[2018-12-11] MEDS ORDERED: Morphine 4 MG/ML VIAL ONE (09:13)
== END 2018-12-11 09:34 | disposition home or self-care (01) ==
LOC: NAV ERS 08:34
DX: M54.5 Low back pain (principal); G89.29 Other chronic pain; I10 Essential (primary) hypertension; G47.00 Insomnia, unspecified; F41.9 Anxiety disorder, unspecified; F32.9 Major depressive disorder, single episode, unspecified; Z87.891 Personal history of nicotine dependence; Z79.899 Other long term (current) drug therapy
CPT/HCPCS: 96372; 99283; J2270

== ENCOUNTER 2020-03-29 10:39 | Outpatient (CLI) | payer MEDICARE ==
[2020-03-29 10:55] LABS: #Basophils 0.1 thou/uL (0.0-0.2); #Eosinphils 0.4 thou/uL (0.0-0.7); #Lymphocytes 2.6 thou/uL (1.20-3.40); #Monocytes 0.5 thou/uL (0.11-0.59); #Neutrophils 6.1 thou/uL (1.40-6.50); %Basophils 0.9 % (0.0-1.0); %Lymphocytes 26.9 % (21.0-51.0); %Monocytes 5.4 % (0.0-10.0); %Neutrophils 62.8 % (42.0-75.0); Hemoglobin 9.4 g/dL (12.0-16.0); Mean Corpuscular HGB CONC 32.1 g/dL (32.0-36.0); Mean Corpuscular Hemoglobin 28.8 pg (27.0-31.0); Mean Corpuscular Volume 89.9 fL (78.0-98.0); Platelet Count 458 thou/uL (130-400); Red Blood Cell (RBC) Count 3.27 mill/uL (4.20-5.40); White Blood Cell (WBC) Count 9.7 thou/uL (4.8-10.8)
[2020-03-29 16:41] LABS: Reticulocyte Count 2.1 % (0.5-1.5)
== END 2020-03-29 10:40 | disposition home or self-care (01) ==
LOC: NAV LABSP 10:39 → NAVSJIPCSP 10:40
PROVIDERS: ATTEND Family Medicine
DX: I11.0 Hypertensive heart disease with heart failure (principal); I50.32 Chronic diastolic (congestive) heart failure; I25.118 Atherosclerotic heart disease of native coronary artery with other forms of angina pectoris; J44.9 Chronic obstructive pulmonary disease, unspecified; M06.9 Rheumatoid arthritis, unspecified; I73.9 Peripheral vascular disease, unspecified; R06.09 Other forms of dyspnea; E03.9 Hypothyroidism, unspecified; D64.9 Anemia, unspecified; G89.29 Other chronic pain; Z79.899 Other long term (current) drug therapy
CPT/HCPCS: 85025; 85046

== ENCOUNTER 2020-12-19 09:20 | Outpatient (CLI) | payer MEDICARE | END 2020-12-19 09:21 | disposition home or self-care (01) | LOC: NAV RAD 09:20 | PROVIDERS: ATTEND Family Medicine | DX: M25.561 Pain in right knee (principal); W19.XXXA Unspecified fall, initial encounter ==

== ENCOUNTER 2021-02-26 07:03 | Emergency (ER) | payer MEDICARE ==
[2021-02-26 08:08] LABS: #Basophils 0.1 thou/uL (0.0-0.2); #Eosinphils 0.1 thou/uL (0.0-0.7); #Lymphocytes 2.2 thou/uL (1.20-3.40); #Monocytes 0.6 thou/uL (0.11-0.59); #Neutrophils 8.7 thou/uL (1.40-6.50); %Basophils 0.6 % (0.0-1.0); %Eosinophils 0.7 % (0.0-10.0); %Lymphocytes 18.9 % (21.0-51.0); %Monocytes 5.2 % (0.0-10.0); %Neutrophils 74.5 % (42.0-75.0); Hemoglobin 11.3 g/dL (12.0-16.0); Mean Corpuscular HGB CONC 30.9 g/dL (32.0-36.0); Mean Corpuscular Volume 87.3 fL (78.0-98.0); Mean Platelet Volume 5.1 fL (7.4-10.4); Platelet Count 393 thou/uL (130-400); Red Blood Cell (RBC) Count 4.17 mill/uL (4.20-5.40); White Blood Cell (WBC) Count 11.6 thou/uL (4.8-10.8)
[2021-02-26 08:21] LABS: Alkaline Phosphatase 69 U/L (40-110)
[2021-02-26 08:24] LABS: ALT (SGPT) 8 U/L (8-55); AST (SGOT) 14 U/L (5-34); Albumin 3.8 g/dL (3.4-4.8); Anion Gap 15 mmol/L (10-20); BUN (Urea Nitrogen) 17 mg/dL (9.8-20.1); Bilirubin, Total 0.4 mg/dL (0.2-1.2); Calc. Creatinine Clearance 0 mL/min (70-130); Calcium 9.8 mg/dL (7.8-10.44); Carbon Dioxide 24 mmol/L (23-31); Chloride 99 mmol/L (98-107); Globulin 3.5 g/dL (2.4-3.5); Glucose 105 mg/dL (83-110); Lipase 4 U/L (8-78); Potassium 3.9 mmol/L (3.5-5.1); Protein, Total 7.3 g/dL (5.8-8.1); Sodium 134 mmol/L (136-145)
[2021-02-26 09:00] LABS: Bilirubin Negative (Negative); Blood, Urine Negative (Negative); Clarity Clear (Clear); Glucose, Urine (Dipstick) Negative (Negative); Ketone, Urine Trace mg/dL (Negative); Leukocyte Negative (Negative); Nitrite Negative (Negative); Protein, Urine (Dipstick) Negative (Neg-Trace); Urobilinogen 0.2 mg/dL (Less than 2); pH, Urine 7.5 (5.0-9.0)
== END 2021-02-26 09:35 | disposition home or self-care (01) ==
LOC: NAV ERS 07:03
DX: E86.0 Dehydration (principal); I10 Essential (primary) hypertension; Z87.891 Personal history of nicotine dependence; Z79.899 Other long term (current) drug therapy
CPT/HCPCS: 36415; 80053; 81003; 83605; 83690; 84484; 85025; 93005; 94760

== ENCOUNTER 2021-08-06 09:48 | Emergency (ER) | payer MEDICARE | END 2021-08-06 10:39 | disposition home or self-care (01) | LOC: NAV ERS 09:48 | DX: S61.411A Laceration without foreign body of right hand, initial encounter (principal); S20.211A Contusion of right front wall of thorax, initial encounter; I10 Essential (primary) hypertension; Z79.82 Long term (current) use of aspirin; Z79.890 Hormone replacement therapy; Z79.899 Other long term (current) drug therapy; Z87.891 Personal history of nicotine dependence; V43.52XA Car driver injured in collision with other type car in traffic accident, initial encounter ==

== ENCOUNTER 2021-09-21 08:23 | Inpatient (IN) | payer MEDICARE ==
[2021-09-21] MEDS ORDERED: Melatonin 3 MG TAB PO PRN (12:54)
[2021-09-21] MEDS ORDERED: Senokot S 8.6-50 MG TAB PO PRN (12:58)
[2021-09-21] MEDS ORDERED: Guaifenesin DM 100-10/5 ML UDCUP PO PRN (12:58)
[2021-09-21] MEDS ORDERED: Loperamide HCl 2 MG CAP PO PRN ×2 (12:58)
[2021-09-21] MEDS ORDERED: Bisacodyl 10 MG SUPP PR PRN (12:58)
[2021-09-21] MEDS ORDERED: Calcium Carbonate 500 MG ChewTAB PO PRN (12:58)
[2021-09-21] MEDS ORDERED: hydrOXYzine 25 MG TAB PO PRN (12:58)
[2021-09-21] MEDS ORDERED: HYDROcodone/Acetaminophen 5/325 mg Tablet PO PRN (12:58)
[2021-09-21] MEDS ORDERED: Promethazine HCl 25 MG SUPP PR PRN (12:58)
[2021-09-21] MEDS ORDERED: Bisacodyl 5 MG TAB PO PRN (12:58)
[2021-09-21] MEDS: Gabapentin 300 MG CAP PO SCH ×2 (14:27→20:43)
[2021-09-21] MEDS: HYDROcodone/Acetaminophen 5/325 mg Tablet PO PRN ×2 (14:35→20:47)
[2021-09-21] MEDS: Docusate 100 MG CAP PO SCH (20:44)
[2021-09-21] MEDS: Zolpidem Tartrate 5 MG TAB PO SCH (20:45)
[2021-09-22] MEDS: HYDROcodone/Acetaminophen 5/325 mg Tablet PO PRN ×2 (04:55→20:00)
[2021-09-22] MEDS: Levothyroxine Sodium 50 MCG TAB PO SCH (04:59)
[2021-09-22 06:29] LABS: #Basophils 0.1 thou/uL (0.0-0.2); #Eosinphils 0.2 thou/uL (0.0-0.7); #Lymphocytes 1.6 thou/uL (1.20-3.40); #Monocytes 0.9 thou/uL (0.11-0.59); #Neutrophils 5.6 thou/uL (1.40-6.50); %Eosinophils 2.1 % (0.0-10.0); %Lymphocytes 19.2 % (21.0-51.0); %Monocytes 10.5 % (0.0-10.0); %Neutrophils 67.2 % (42.0-75.0); Hemoglobin 7.9 g/dL (12.0-16.0); Mean Corpuscular HGB CONC 30.9 g/dL (32.0-36.0); Mean Corpuscular Hemoglobin 28.4 pg (27.0-31.0); Mean Corpuscular Volume 91.8 fL (78.0-98.0); Mean Platelet Volume 6.4 fL (7.4-10.4); Platelet Count 216 thou/uL (130-400); RBC Distribution Width 15.3 % (11.5-14.5); Red Blood Cell (RBC) Count 2.78 mill/uL (4.20-5.40); White Blood Cell (WBC) Count 8.3 thou/uL (4.8-10.8)
[2021-09-22 06:42] LABS: ALT (SGPT) 13 U/L (8-55); AST (SGOT) 10 U/L (5-34); Alkaline Phosphatase 45 U/L (40-110); Anion Gap 14 mmol/L (10-20); BUN (Urea Nitrogen) 8 mg/dL (9.8-20.1); Bilirubin, Total 0.5 mg/dL (0.2-1.2); Calc. Creatinine Clearance 83 mL/min (70-130); Calcium 7.8 mg/dL (7.8-10.44); Carbon Dioxide 28 mmol/L (23-31); Chloride 95 mmol/L (98-107); Globulin 2.2 g/dL (2.4-3.5); Glucose 117 mg/dL (83-110); Potassium 3.2 mmol/L (3.5-5.1); Protein, Total 5.2 g/dL (5.8-8.1); Sodium 134 mmol/L (136-145)
[2021-09-22] MEDS: Gabapentin 300 MG CAP PO SCH ×3 (08:35→19:59)
[2021-09-22] MEDS: Cholecalciferol 1,000 UNITS (25 MCG) TAB PO SCH (08:36)
[2021-09-22] MEDS: Stress 600 With Zinc 1 TAB PO SCH (08:36)
[2021-09-22] MEDS: Aspirin 81 mg Enteric Coated Tablet PO SCH (08:36)
[2021-09-22] MEDS: Loratadine 10 MG TAB PO SCH (08:36)
[2021-09-22] MEDS: Calcium Carbonate 600 MG + Vit D TAB PO SCH (08:36)
[2021-09-22] MEDS: Hydrochlorothiazide 25 MG TAB PO SCH (08:37)
[2021-09-22] MEDS: Ferrous Sulfate 325 MG TAB PO SCH (08:37)
[2021-09-22] MEDS: Magnesium Oxide 400 MG TAB PO SCH (08:37)
[2021-09-22] MEDS: Losartan Potassium 50 MG TAB PO SCH (08:37)
[2021-09-22] MEDS: Docusate 100 MG CAP PO SCH (19:59)
[2021-09-22] MEDS: Zolpidem Tartrate 5 MG TAB PO SCH (19:59)
[2021-09-23] MEDS: HYDROcodone/Acetaminophen 5/325 mg Tablet PO PRN ×3 (05:10→17:34)
[2021-09-23] MEDS: Levothyroxine Sodium 50 MCG TAB PO SCH (05:10)
[2021-09-23 05:37] LABS: #Basophils 0.1 thou/uL (0.0-0.2); #Eosinphils 0.2 thou/uL (0.0-0.7); #Lymphocytes 2.1 thou/uL (1.20-3.40); #Monocytes 0.8 thou/uL (0.11-0.59); #Neutrophils 6.1 thou/uL (1.40-6.50); %Basophils 0.7 % (0.0-1.0); %Eosinophils 2.6 % (0.0-10.0); %Lymphocytes 22.5 % (21.0-51.0); %Monocytes 8.2 % (0.0-10.0); Hemoglobin 8.3 g/dL (12.0-16.0); Mean Corpuscular HGB CONC 30.2 g/dL (32.0-36.0); Mean Corpuscular Hemoglobin 28.3 pg (27.0-31.0); Mean Corpuscular Volume 93.6 fL (78.0-98.0); Mean Platelet Volume 5.7 fL (7.4-10.4); Platelet Count 304 thou/uL (130-400); RBC Distribution Width 16.1 % (11.5-14.5); Red Blood Cell (RBC) Count 2.94 mill/uL (4.20-5.40); White Blood Cell (WBC) Count 9.3 thou/uL (4.8-10.8)
[2021-09-23 05:52] LABS: ALT (SGPT) 14 U/L (8-55); AST (SGOT) 12 U/L (5-34); Albumin 3.4 g/dL (3.4-4.8); Alkaline Phosphatase 49 U/L (40-110); Anion Gap 16 mmol/L (10-20); BUN (Urea Nitrogen) 8 mg/dL (9.8-20.1); Bilirubin, Total 0.4 mg/dL (0.2-1.2); Calc. Creatinine Clearance 83 mL/min (70-130); Calcium 8.4 mg/dL (7.8-10.44); Carbon Dioxide 28 mmol/L (23-31); Chloride 96 mmol/L (98-107); Globulin 2.5 g/dL (2.4-3.5); Glucose 125 mg/dL (83-110); Potassium 3.2 mmol/L (3.5-5.1); Protein, Total 5.9 g/dL (5.8-8.1); Sodium 137 mmol/L (136-145)
[2021-09-23] MEDS: Cholecalciferol 1,000 UNITS (25 MCG) TAB PO SCH (07:59)
[2021-09-23] MEDS: Calcium Carbonate 600 MG + Vit D TAB PO SCH (08:00)
[2021-09-23] MEDS: Ferrous Sulfate 325 MG TAB PO SCH (08:03)
[2021-09-23] MEDS: Aspirin 81 mg Enteric Coated Tablet PO SCH (08:03)
[2021-09-23] MEDS: Hydrochlorothiazide 25 MG TAB PO SCH ×2 (08:03→08:04)
[2021-09-23] MEDS: Stress 600 With Zinc 1 TAB PO SCH (08:03)
[2021-09-23] MEDS: Loratadine 10 MG TAB PO SCH (08:03)
[2021-09-23] MEDS: Magnesium Oxide 400 MG TAB PO SCH (08:03)
[2021-09-23] MEDS: Gabapentin 300 MG CAP PO SCH ×3 (08:04→20:26)
[2021-09-23] MEDS: Losartan Potassium 50 MG TAB PO SCH (08:05)
[2021-09-23] MEDS: Potassium Chloride 20 MEQ TAB PO SCH (17:33)
[2021-09-23] MEDS: Zolpidem Tartrate 5 MG TAB PO SCH (20:26)
[2021-09-23] MEDS: Docusate 100 MG CAP PO SCH (20:26)
[2021-09-24 05:30] LABS: #Basophils 0.1 thou/uL (0.0-0.2); %Basophils 1.1 % (0.0-1.0); RBC Distribution Width 15.8 % (11.5-14.5)
[2021-09-24 05:41] LABS: ALT (SGPT) 12 U/L (8-55); AST (SGOT) 11 U/L (5-34); Albumin 3.2 g/dL (3.4-4.8); Alkaline Phosphatase 44 U/L (40-110); Anion Gap 14 mmol/L (10-20); BUN (Urea Nitrogen) 10 mg/dL (9.8-20.1); Bilirubin, Total 0.3 mg/dL (0.2-1.2); Calc. Creatinine Clearance 81 mL/min (70-130); Calcium 8.2 mg/dL (7.8-10.44); Carbon Dioxide 29 mmol/L (23-31); Chloride 97 mmol/L (98-107); Globulin 2.4 g/dL (2.4-3.5); Glucose 96 mg/dL (83-110); Magnesium 1.8 mg/dL (1.6-2.6); Potassium 3.4 mmol/L (3.5-5.1); Protein, Total 5.6 g/dL (5.8-8.1); Sodium 137 mmol/L (136-145)
[2021-09-24 05:48] LABS: #Eosinphils 0.3 thou/uL (0.0-0.7); #Lymphocytes 2.5 thou/uL (1.20-3.40); #Monocytes 0.7 thou/uL (0.11-0.59); #Neutrophils 5.2 thou/uL (1.40-6.50); %Eosinophils 3.3 % (0.0-10.0); %Lymphocytes 28.6 % (21.0-51.0); %Monocytes 8.2 % (0.0-10.0); %Neutrophils 58.8 % (42.0-75.0); Hemoglobin 8.2 g/dL (12.0-16.0); Mean Corpuscular HGB CONC 30.2 g/dL (32.0-36.0); Mean Corpuscular Hemoglobin 28.3 pg (27.0-31.0); Mean Corpuscular Volume 93.5 fL (78.0-98.0); Mean Platelet Volume 5.8 fL (7.4-10.4); Platelet Count 336 thou/uL (130-400); Red Blood Cell (RBC) Count 2.88 mill/uL (4.20-5.40); White Blood Cell (WBC) Count 8.9 thou/uL (4.8-10.8)
[2021-09-24] MEDS: HYDROcodone/Acetaminophen 5/325 mg Tablet PO PRN ×2 (06:18→13:50)
[2021-09-24] MEDS: Levothyroxine Sodium 50 MCG TAB PO SCH (06:18)
[2021-09-24] MEDS: Calcium Carbonate 600 MG + Vit D TAB PO SCH (07:49)
[2021-09-24] MEDS: Stress 600 With Zinc 1 TAB PO SCH (07:49)
[2021-09-24] MEDS: Ferrous Sulfate 325 MG TAB PO SCH (07:49)
[2021-09-24] MEDS: Loratadine 10 MG TAB PO SCH (07:49)
[2021-09-24] MEDS: Aspirin 81 mg Enteric Coated Tablet PO SCH (07:51)
[2021-09-24] MEDS: Magnesium Oxide 400 MG TAB PO SCH ×2 (07:51→22:23)
[2021-09-24] MEDS: Cholecalciferol 1,000 UNITS (25 MCG) TAB PO SCH (07:51)
[2021-09-24] MEDS: Potassium Chloride 20 MEQ TAB PO SCH ×2 (07:51→17:01)
[2021-09-24] MEDS: Gabapentin 300 MG CAP PO SCH ×3 (07:52→22:23)
[2021-09-24] MEDS: Losartan Potassium 50 MG TAB PO SCH (07:53)
[2021-09-24] MEDS ORDERED: Magnesium Chloride 64 MG TAB PO SCH (10:00)
[2021-09-24] MEDS ORDERED: Betamethasone Val 0.1% OINT 15 GM TUBE ONE (11:35)
[2021-09-24] MEDS: Zolpidem Tartrate 5 MG TAB PO SCH (22:22)
[2021-09-24] MEDS: Docusate 100 MG CAP PO SCH (22:23)
[2021-09-25] MEDS: Levothyroxine Sodium 50 MCG TAB PO SCH (05:57)
[2021-09-25 06:14] LABS: Magnesium 2.2 mg/dL (1.6-2.6)
[2021-09-25] MEDS: Ferrous Sulfate 325 MG TAB PO SCH (08:06)
[2021-09-25] MEDS: Calcium Carbonate 600 MG + Vit D TAB PO SCH (08:06)
[2021-09-25] MEDS: Gabapentin 300 MG CAP PO SCH ×3 (08:06→20:23)
[2021-09-25] MEDS: Magnesium Oxide 400 MG TAB PO SCH ×2 (08:08→20:23)
[2021-09-25] MEDS: Hydrochlorothiazide 25 MG TAB PO SCH (08:09)
[2021-09-25] MEDS: Aspirin 81 mg Enteric Coated Tablet PO SCH (08:10)
[2021-09-25] MEDS: Stress 600 With Zinc 1 TAB PO SCH (08:10)
[2021-09-25] MEDS: Potassium Chloride 20 MEQ TAB PO SCH (08:10)
[2021-09-25] MEDS: Cholecalciferol 1,000 UNITS (25 MCG) TAB PO SCH (08:10)
[2021-09-25] MEDS: Loratadine 10 MG TAB PO SCH (08:11)
[2021-09-25] MEDS: HYDROcodone/Acetaminophen 5/325 mg Tablet PO PRN ×4 (08:20→23:42)
[2021-09-25] MEDS: Losartan Potassium 50 MG TAB PO SCH (09:00)
[2021-09-25 12:16] LABS: Anion Gap 17 mmol/L (10-20); BUN (Urea Nitrogen) 10 mg/dL (9.8-20.1); Calc. Creatinine Clearance 76 mL/min (70-130); Calcium 8.4 mg/dL (7.8-10.44); Carbon Dioxide 25 mmol/L (23-31); Chloride 100 mmol/L (98-107); Glucose 93 mg/dL (83-110); Potassium 4.1 mmol/L (3.5-5.1); Sodium 138 mmol/L (136-145)
[2021-09-25] MEDS: Zolpidem Tartrate 5 MG TAB PO SCH (20:25)
[2021-09-25] MEDS: Metoprolol Tartrate 25 MG TAB PO SCH (20:25)
[2021-09-25] MEDS: Docusate 100 MG CAP PO SCH (20:25)
[2021-09-26] MEDS: Levothyroxine Sodium 50 MCG TAB PO SCH (05:44)
[2021-09-26] MEDS: HYDROcodone/Acetaminophen 5/325 mg Tablet PO PRN ×3 (08:27→20:34)
[2021-09-26] MEDS: Aspirin 81 mg Enteric Coated Tablet PO SCH (08:28)
[2021-09-26] MEDS: Stress 600 With Zinc 1 TAB PO SCH (08:28)
[2021-09-26] MEDS: Calcium Carbonate 600 MG + Vit D TAB PO SCH (08:29)
[2021-09-26] MEDS: Cholecalciferol 1,000 UNITS (25 MCG) TAB PO SCH (08:29)
[2021-09-26] MEDS: Metoprolol Tartrate 25 MG TAB PO SCH ×2 (08:29→20:36)
[2021-09-26] MEDS: Ferrous Sulfate 325 MG TAB PO SCH (08:29)
[2021-09-26] MEDS: Magnesium Oxide 400 MG TAB PO SCH ×2 (08:29→20:37)
[2021-09-26] MEDS: Loratadine 10 MG TAB PO SCH (08:29)
[2021-09-26] MEDS: Losartan Potassium 50 MG TAB PO SCH (08:30)
[2021-09-26] MEDS: Gabapentin 300 MG CAP PO SCH ×3 (10:11→20:35)
[2021-09-26] MEDS: Docusate 100 MG CAP PO SCH (20:36)
[2021-09-26] MEDS: Zolpidem Tartrate 5 MG TAB PO SCH (20:37)
[2021-09-27] MEDS: HYDROcodone/Acetaminophen 5/325 mg Tablet PO PRN ×4 (02:38→20:45)
[2021-09-27] MEDS: Artificial Tear Sol 15 ML BOT EA EYE PRN ×2 (02:40→09:05)
[2021-09-27] MEDS: Levothyroxine Sodium 50 MCG TAB PO SCH (05:39)
[2021-09-27 06:56] LABS: Anion Gap 13 mmol/L (10-20); BUN (Urea Nitrogen) 10 mg/dL (9.8-20.1); Calc. Creatinine Clearance 76 mL/min (70-130); Calcium 8.4 mg/dL (7.8-10.44); Carbon Dioxide 27 mmol/L (23-31); Chloride 99 mmol/L (98-107); Glucose 102 mg/dL (83-110); Potassium 4.4 mmol/L (3.5-5.1); Sodium 135 mmol/L (136-145)
[2021-09-27] MEDS: Ferrous Sulfate 325 MG TAB PO SCH (09:01)
[2021-09-27] MEDS: Loratadine 10 MG TAB PO SCH (09:02)
[2021-09-27] MEDS: Calcium Carbonate 600 MG + Vit D TAB PO SCH (09:02)
[2021-09-27] MEDS: Magnesium Oxide 400 MG TAB PO SCH ×2 (09:02→20:46)
[2021-09-27] MEDS: Aspirin 81 mg Enteric Coated Tablet PO SCH (09:02)
[2021-09-27] MEDS: Cholecalciferol 1,000 UNITS (25 MCG) TAB PO SCH (09:02)
[2021-09-27] MEDS: Stress 600 With Zinc 1 TAB PO SCH (09:02)
[2021-09-27] MEDS: Gabapentin 300 MG CAP PO SCH ×3 (09:04→20:45)
[2021-09-27] MEDS: Metoprolol Tartrate 25 MG TAB PO SCH ×2 (09:06→20:46)
[2021-09-27] MEDS: Losartan 25 MG TAB PO SCH (09:25)
[2021-09-27] MEDS: Losartan Potassium 50 MG TAB PO SCH (09:29)
[2021-09-27] MEDS: Zolpidem Tartrate 5 MG TAB PO SCH (20:46)
[2021-09-27] MEDS: Docusate 100 MG CAP PO SCH (20:46)
[2021-09-28] MEDS: HYDROcodone/Acetaminophen 5/325 mg Tablet PO PRN ×4 (05:16→23:09)
[2021-09-28] MEDS: Levothyroxine Sodium 50 MCG TAB PO SCH (05:17)
[2021-09-28 06:47] LABS: #Basophils 0.1 thou/uL (0.0-0.2); #Eosinphils 0.3 thou/uL (0.0-0.7); #Lymphocytes 2.1 thou/uL (1.20-3.40); #Monocytes 0.7 thou/uL (0.11-0.59); #Neutrophils 5.2 thou/uL (1.40-6.50); %Basophils 0.8 % (0.0-1.0); %Eosinophils 3.6 % (0.0-10.0); %Lymphocytes 24.8 % (21.0-51.0); %Monocytes 8.1 % (0.0-10.0); %Neutrophils 62.6 % (42.0-75.0); Hemoglobin 7.6 g/dL (12.0-16.0); Mean Corpuscular HGB CONC 30.7 g/dL (32.0-36.0); Mean Corpuscular Hemoglobin 28.5 pg (27.0-31.0); Mean Corpuscular Volume 92.7 fL (78.0-98.0); Mean Platelet Volume 5.4 fL (7.4-10.4); Platelet Count 401 thou/uL (130-400); RBC Distribution Width 15.7 % (11.5-14.5); Red Blood Cell (RBC) Count 2.68 mill/uL (4.20-5.40); White Blood Cell (WBC) Count 8.3 thou/uL (4.8-10.8)
[2021-09-28] MEDS: Gabapentin 300 MG CAP PO SCH ×3 (08:16→21:07)
[2021-09-28] MEDS: Aspirin 81 mg Enteric Coated Tablet PO SCH (08:17)
[2021-09-28] MEDS: Losartan 25 MG TAB PO SCH (08:17)
[2021-09-28] MEDS: Metoprolol Tartrate 25 MG TAB PO SCH ×2 (08:17→21:08)
[2021-09-28] MEDS: Stress 600 With Zinc 1 TAB PO SCH (08:17)
[2021-09-28] MEDS: Magnesium Oxide 400 MG TAB PO SCH ×2 (08:18→21:08)
[2021-09-28] MEDS: Calcium Carbonate 600 MG + Vit D TAB PO SCH (08:18)
[2021-09-28] MEDS: Ferrous Sulfate 325 MG TAB PO SCH (08:18)
[2021-09-28] MEDS: Loratadine 10 MG TAB PO SCH (08:18)
[2021-09-28] MEDS: Cholecalciferol 1,000 UNITS (25 MCG) TAB PO SCH (08:18)
[2021-09-28] MEDS: Artificial Tear Sol 15 ML BOT EA EYE PRN ×2 (08:19→17:37)
[2021-09-28] MEDS: Benzonatate 100 MG CAP PO PRN ×2 (12:29→21:12)
[2021-09-28 20:59] LABS: #Basophils 0.1 thou/uL (0.0-0.2); #Eosinphils 0.3 thou/uL (0.0-0.7); #Monocytes 0.7 thou/uL (0.11-0.59); #Neutrophils 6.5 thou/uL (1.40-6.50); %Basophils 0.8 % (0.0-1.0); %Eosinophils 3.4 % (0.0-10.0); %Lymphocytes 21.2 % (21.0-51.0); %Monocytes 6.9 % (0.0-10.0); %Neutrophils 67.7 % (42.0-75.0); Hemoglobin 7.7 g/dL (12.0-16.0); Mean Corpuscular Hemoglobin 28.1 pg (27.0-31.0); Mean Corpuscular Volume 93.4 fL (78.0-98.0); Mean Platelet Volume 4.8 fL (7.4-10.4); Platelet Count 394 thou/uL (130-400); RBC Distribution Width 15.8 % (11.5-14.5); Red Blood Cell (RBC) Count 2.74 mill/uL (4.20-5.40); White Blood Cell (WBC) Count 9.6 thou/uL (4.8-10.8)
[2021-09-28] MEDS: Zolpidem Tartrate 5 MG TAB PO SCH (21:08)
[2021-09-28] MEDS: Docusate 100 MG CAP PO SCH (21:08)
[2021-09-28 21:13] LABS: Anion Gap 14 mmol/L (10-20); BUN (Urea Nitrogen) 12 mg/dL (9.8-20.1); Calc. Creatinine Clearance 73 mL/min (70-130); Calcium 8.4 mg/dL (7.8-10.44); Carbon Dioxide 25 mmol/L (23-31); Chloride 99 mmol/L (98-107); Glucose 137 mg/dL (83-110); Sodium 134 mmol/L (136-145)
[2021-09-28 21:15] LABS: Troponin I Less than 0.010 ng/mL (< 0.028)
[2021-09-29] MEDS: Levothyroxine Sodium 50 MCG TAB PO SCH (05:59)
[2021-09-29] MEDS: Benzonatate 100 MG CAP PO PRN (05:59)
[2021-09-29 06:06] LABS: Anion Gap 14 mmol/L (10-20); BUN (Urea Nitrogen) 10 mg/dL (9.8-20.1); Calc. Creatinine Clearance 75 mL/min (70-130); Calcium 8.4 mg/dL (7.8-10.44); Carbon Dioxide 27 mmol/L (23-31); Chloride 99 mmol/L (98-107); Glucose 103 mg/dL (83-110); Potassium 4.2 mmol/L (3.5-5.1); Sodium 136 mmol/L (136-145)
[2021-09-29] MEDS: Aspirin 81 mg Enteric Coated Tablet PO SCH (07:58)
[2021-09-29] MEDS: Metoprolol Tartrate 25 MG TAB PO SCH ×2 (07:58→20:58)
[2021-09-29] MEDS: Magnesium Oxide 400 MG TAB PO SCH ×2 (07:59→21:00)
[2021-09-29] MEDS: HYDROcodone/Acetaminophen 5/325 mg Tablet PO PRN ×2 (08:00→13:20)
[2021-09-29] MEDS: Loratadine 10 MG TAB PO SCH (08:01)
[2021-09-29] MEDS: Losartan 25 MG TAB PO SCH (08:01)
[2021-09-29] MEDS: Gabapentin 300 MG CAP PO SCH ×3 (08:01→20:59)
[2021-09-29] MEDS: Calcium Carbonate 600 MG + Vit D TAB PO SCH (08:02)
[2021-09-29] MEDS: Stress 600 With Zinc 1 TAB PO SCH (08:02)
[2021-09-29] MEDS: Cholecalciferol 1,000 UNITS (25 MCG) TAB PO SCH (08:02)
[2021-09-29] MEDS: Ferrous Sulfate 325 MG TAB PO SCH (08:02)
[2021-09-29] MEDS: Artificial Tear Sol 15 ML BOT EA EYE PRN (08:07)
[2021-09-29] MEDS: Zolpidem Tartrate 5 MG TAB PO SCH (20:59)
[2021-09-29] MEDS: Docusate 100 MG CAP PO SCH (20:59)
[2021-09-30] MEDS: Levothyroxine Sodium 50 MCG TAB PO SCH (06:08)
[2021-09-30] MEDS: HYDROcodone/Acetaminophen 5/325 mg Tablet PO PRN ×3 (06:45→18:36)
[2021-09-30] MEDS: Gabapentin 300 MG CAP PO SCH ×3 (08:47→20:15)
[2021-09-30] MEDS: Loratadine 10 MG TAB PO SCH (08:50)
[2021-09-30] MEDS: Losartan Potassium 50 MG TAB PO SCH (08:50)
[2021-09-30] MEDS: Aspirin 81 mg Enteric Coated Tablet PO SCH (08:50)
[2021-09-30] MEDS: Cholecalciferol 1,000 UNITS (25 MCG) TAB PO SCH (08:50)
[2021-09-30] MEDS: Amlodipine 5 MG TAB PO SCH (08:51)
[2021-09-30] MEDS: Magnesium Oxide 400 MG TAB PO SCH ×2 (08:51→20:14)
[2021-09-30] MEDS: Calcium Carbonate 600 MG + Vit D TAB PO SCH (08:51)
[2021-09-30] MEDS: Ferrous Sulfate 325 MG TAB PO SCH (08:51)
[2021-09-30] MEDS: Stress 600 With Zinc 1 TAB PO SCH (08:51)
[2021-09-30] MEDS: Metoprolol Tartrate 25 MG TAB PO SCH ×2 (08:51→20:15)
[2021-09-30] MEDS: Docusate 100 MG CAP PO SCH (20:14)
[2021-09-30] MEDS: Zolpidem Tartrate 5 MG TAB PO SCH (20:15)
[2021-09-30] MEDS: Artificial Tear Sol 15 ML BOT EA EYE PRN (20:16)
[2021-09-30] MEDS: Acetaminophen 325 MG TAB PO PRN (20:24)
[2021-10-01] MEDS: HYDROcodone/Acetaminophen 5/325 mg Tablet PO PRN ×4 (01:52→20:54)
[2021-10-01] MEDS: Levothyroxine Sodium 50 MCG TAB PO SCH (05:46)
[2021-10-01 06:15] LABS: #Basophils 0.1 thou/uL (0.0-0.2); #Eosinphils 0.4 thou/uL (0.0-0.7); #Lymphocytes 2.4 thou/uL (1.20-3.40); #Monocytes 0.7 thou/uL (0.11-0.59); #Neutrophils 5.7 thou/uL (1.40-6.50); %Basophils 1.1 % (0.0-1.0); %Eosinophils 4.1 % (0.0-10.0); %Lymphocytes 26.2 % (21.0-51.0); %Monocytes 7.1 % (0.0-10.0); %Neutrophils 61.5 % (42.0-75.0); Hemoglobin 8.2 g/dL (12.0-16.0); Mean Corpuscular HGB CONC 29.9 g/dL (32.0-36.0); Mean Corpuscular Hemoglobin 27.9 pg (27.0-31.0); Mean Corpuscular Volume 93.4 fL (78.0-98.0); Mean Platelet Volume 5.4 fL (7.4-10.4); Platelet Count 403 thou/uL (130-400); RBC Distribution Width 16.4 % (11.5-14.5); Red Blood Cell (RBC) Count 2.92 mill/uL (4.20-5.40); White Blood Cell (WBC) Count 9.3 thou/uL (4.8-10.8)
[2021-10-01 06:17] LABS: Anion Gap 15 mmol/L (10-20); BUN (Urea Nitrogen) 10 mg/dL (9.8-20.1); Calc. Creatinine Clearance 75 mL/min (70-130); Calcium 8.4 mg/dL (7.8-10.44); Carbon Dioxide 24 mmol/L (23-31); Chloride 101 mmol/L (98-107); Glucose 99 mg/dL (83-110); Potassium 4.2 mmol/L (3.5-5.1); Sodium 136 mmol/L (136-145)
[2021-10-01] MEDS: Gabapentin 300 MG CAP PO SCH ×3 (08:17→20:53)
[2021-10-01] MEDS: Calcium Carbonate 600 MG + Vit D TAB PO SCH (08:17)
[2021-10-01] MEDS: Magnesium Oxide 400 MG TAB PO SCH ×2 (08:18→20:53)
[2021-10-01] MEDS: Cholecalciferol 1,000 UNITS (25 MCG) TAB PO SCH (08:18)
[2021-10-01] MEDS: Stress 600 With Zinc 1 TAB PO SCH (08:18)
[2021-10-01] MEDS: Amlodipine 5 MG TAB PO SCH (08:18)
[2021-10-01] MEDS: Ferrous Sulfate 325 MG TAB PO SCH (08:19)
[2021-10-01] MEDS: Metoprolol Tartrate 25 MG TAB PO SCH ×2 (08:19→20:53)
[2021-10-01] MEDS: Aspirin 81 mg Enteric Coated Tablet PO SCH (08:19)
[2021-10-01] MEDS: Losartan Potassium 50 MG TAB PO SCH (08:20)
[2021-10-01] MEDS: Loratadine 10 MG TAB PO SCH (08:20)
[2021-10-01] MEDS: Zolpidem Tartrate 5 MG TAB PO SCH (20:53)
[2021-10-01] MEDS: Docusate 100 MG CAP PO SCH (20:53)
[2021-10-02] MEDS: HYDROcodone/Acetaminophen 5/325 mg Tablet PO PRN ×5 (02:41→20:48)
[2021-10-02] MEDS: Levothyroxine Sodium 50 MCG TAB PO SCH (05:07)
[2021-10-02 06:07] LABS: Hemoglobin 7.7 g/dL (12.0-16.0)
[2021-10-02] MEDS: Losartan Potassium 50 MG TAB PO SCH (07:42)
[2021-10-02] MEDS: Calcium Carbonate 600 MG + Vit D TAB PO SCH (07:43)
[2021-10-02] MEDS: Magnesium Oxide 400 MG TAB PO SCH ×2 (07:43→20:11)
[2021-10-02] MEDS: Metoprolol Tartrate 25 MG TAB PO SCH ×2 (07:43→20:10)
[2021-10-02] MEDS: Aspirin 81 mg Enteric Coated Tablet PO SCH (07:43)
[2021-10-02] MEDS: Stress 600 With Zinc 1 TAB PO SCH (07:43)
[2021-10-02] MEDS: Loratadine 10 MG TAB PO SCH (07:44)
[2021-10-02] MEDS: Cholecalciferol 1,000 UNITS (25 MCG) TAB PO SCH (07:44)
[2021-10-02] MEDS: Ferrous Sulfate 325 MG TAB PO SCH (07:44)
[2021-10-02] MEDS: Amlodipine 5 MG TAB PO SCH (07:45)
[2021-10-02] MEDS: Artificial Tear Sol 15 ML BOT EA EYE PRN ×2 (07:45→20:13)
[2021-10-02] MEDS: Gabapentin 300 MG CAP PO SCH ×3 (07:45→20:10)
[2021-10-02] MEDS: Acetaminophen 325 MG TAB PO PRN (14:13)
[2021-10-02] MEDS: Methocarbamol 500 MG TAB PO PRN (16:50)
[2021-10-02] MEDS: Zolpidem Tartrate 5 MG TAB PO SCH (20:09)
[2021-10-02] MEDS: Docusate 100 MG CAP PO SCH (20:10)
[2021-10-03] MEDS: HYDROcodone/Acetaminophen 5/325 mg Tablet PO PRN ×5 (01:04→20:57)
[2021-10-03] MEDS: Levothyroxine Sodium 50 MCG TAB PO SCH (05:41)
[2021-10-03] MEDS: Loratadine 10 MG TAB PO SCH (08:50)
[2021-10-03] MEDS: Aspirin 81 mg Enteric Coated Tablet PO SCH (08:50)
[2021-10-03] MEDS: Methocarbamol 500 MG TAB PO PRN ×2 (08:50→15:30)
[2021-10-03] MEDS: Calcium Carbonate 600 MG + Vit D TAB PO SCH (08:50)
[2021-10-03] MEDS: Gabapentin 300 MG CAP PO SCH ×3 (08:50→20:56)
[2021-10-03] MEDS: Metoprolol Tartrate 25 MG TAB PO SCH ×2 (08:50→20:56)
[2021-10-03] MEDS: Cholecalciferol 1,000 UNITS (25 MCG) TAB PO SCH (08:50)
[2021-10-03] MEDS: Magnesium Oxide 400 MG TAB PO SCH ×2 (08:50→20:56)
[2021-10-03] MEDS: Amlodipine 5 MG TAB PO SCH (08:51)
[2021-10-03] MEDS: Ferrous Sulfate 325 MG TAB PO SCH (08:51)
[2021-10-03] MEDS: Losartan Potassium 50 MG TAB PO SCH (08:52)
[2021-10-03] MEDS: Stress 600 With Zinc 1 TAB PO SCH (08:52)
[2021-10-03] MEDS: Artificial Tear Sol 15 ML BOT EA EYE PRN (09:30)
[2021-10-03] MEDS: Sodium Chloride 0.65% Nasal 44 ML BOT EA NARE PRN (14:28)
[2021-10-03] MEDS: Zolpidem Tartrate 5 MG TAB PO SCH (20:56)
[2021-10-03] MEDS: Docusate 100 MG CAP PO SCH (20:56)
[2021-10-03 21:25] LABS: Clarity Clear (Clear)
[2021-10-03 21:26] LABS: Bilirubin Negative (Negative); Blood, Urine Negative (Negative); Glucose, Urine (Dipstick) Negative (Negative); Ketone, Urine Negative (Negative); Leukocyte Negative (Negative); Nitrite Negative (Negative); Protein, Urine (Dipstick) Negative (Neg-Trace); Urobilinogen 0.2 mg/dL (Less than 2)
[2021-10-03 21:28] LABS: Bacteria/HPF None Seen HPF (None Seen); RBC/HPF None Seen HPF (0-3); Squamous Epithelial None Seen HPF (0-3); WBC/HPF None Seen HPF (0-3)
[2021-10-03 21:29] LABS: Urine Culture Reflex No No
[2021-10-04] MEDS: HYDROcodone/Acetaminophen 5/325 mg Tablet PO PRN ×3 (03:49→14:54)
[2021-10-04] MEDS: Levothyroxine Sodium 50 MCG TAB PO SCH (05:04)
[2021-10-04 05:59] LABS: Hemoglobin 8.1 g/dL (12.0-16.0)
[2021-10-04] MEDS: Gabapentin 300 MG CAP PO SCH ×3 (08:13→20:22)
[2021-10-04] MEDS: Magnesium Oxide 400 MG TAB PO SCH ×2 (08:14→20:23)
[2021-10-04] MEDS: Loratadine 10 MG TAB PO SCH (08:14)
[2021-10-04] MEDS: Cholecalciferol 1,000 UNITS (25 MCG) TAB PO SCH (08:14)
[2021-10-04] MEDS: Calcium Carbonate 600 MG + Vit D TAB PO SCH (08:14)
[2021-10-04] MEDS: Metoprolol Tartrate 25 MG TAB PO SCH ×2 (08:14→20:23)
[2021-10-04] MEDS: Aspirin 81 mg Enteric Coated Tablet PO SCH (08:15)
[2021-10-04] MEDS: Amlodipine 5 MG TAB PO SCH (08:15)
[2021-10-04] MEDS: Stress 600 With Zinc 1 TAB PO SCH (08:15)
[2021-10-04] MEDS: Ferrous Sulfate 325 MG TAB PO SCH (08:15)
[2021-10-04] MEDS: Losartan Potassium 50 MG TAB PO SCH (08:15)
[2021-10-04] MEDS: Methocarbamol 500 MG TAB PO PRN (11:37)
[2021-10-04] MEDS ORDERED: HYDROcodone/Acetaminophen 7.5/325 mg Tablet PO PRN (16:19)
[2021-10-04] MEDS: Zolpidem Tartrate 5 MG TAB PO SCH (20:23)
[2021-10-04] MEDS: Docusate 100 MG CAP PO SCH (20:23)
[2021-10-04] MEDS: HYDROcodone/Acetaminophen 7.5/325 mg Tablet PO PRN (20:25)
[2021-10-05] MEDS: Levothyroxine Sodium 50 MCG TAB PO SCH (05:23)
[2021-10-05] MEDS: HYDROcodone/Acetaminophen 7.5/325 mg Tablet PO PRN ×3 (05:43→20:17)
[2021-10-05] MEDS: Gabapentin 300 MG CAP PO SCH ×3 (08:42→20:15)
[2021-10-05] MEDS: Cholecalciferol 1,000 UNITS (25 MCG) TAB PO SCH (08:42)
[2021-10-05] MEDS: Ferrous Sulfate 325 MG TAB PO SCH (08:42)
[2021-10-05] MEDS: Metoprolol Tartrate 25 MG TAB PO SCH ×2 (08:43→20:16)
[2021-10-05] MEDS: Stress 600 With Zinc 1 TAB PO SCH (08:43)
[2021-10-05] MEDS: Magnesium Oxide 400 MG TAB PO SCH ×2 (08:43→20:16)
[2021-10-05] MEDS: Losartan Potassium 50 MG TAB PO SCH (08:43)
[2021-10-05] MEDS: Loratadine 10 MG TAB PO SCH (08:43)
[2021-10-05] MEDS: Calcium Carbonate 600 MG + Vit D TAB PO SCH (08:43)
[2021-10-05] MEDS: Aspirin 81 mg Enteric Coated Tablet PO SCH (08:45)
[2021-10-05] MEDS: Amlodipine 10 MG TAB PO SCH (08:47)
[2021-10-05] MEDS: Methocarbamol 500 MG TAB PO PRN (14:54)
[2021-10-05] MEDS: Docusate 100 MG CAP PO SCH (20:17)
[2021-10-05] MEDS: Zolpidem Tartrate 5 MG TAB PO SCH (20:17)
[2021-10-06] MEDS: Levothyroxine Sodium 50 MCG TAB PO SCH (05:50)
[2021-10-06] MEDS: HYDROcodone/Acetaminophen 7.5/325 mg Tablet PO PRN ×3 (05:51→18:35)
[2021-10-06 06:05] LABS: Hemoglobin 7.9 g/dL (12.0-16.0)
[2021-10-06] MEDS: Cholecalciferol 1,000 UNITS (25 MCG) TAB PO SCH (08:10)
[2021-10-06] MEDS: Calcium Carbonate 600 MG + Vit D TAB PO SCH (08:11)
[2021-10-06] MEDS: Gabapentin 300 MG CAP PO SCH ×3 (08:13→19:59)
[2021-10-06] MEDS: Losartan Potassium 50 MG TAB PO SCH (08:14)
[2021-10-06] MEDS: Aspirin 81 mg Enteric Coated Tablet PO SCH (08:14)
[2021-10-06] MEDS: Loratadine 10 MG TAB PO SCH (08:14)
[2021-10-06] MEDS: Magnesium Oxide 400 MG TAB PO SCH ×2 (08:15→20:01)
[2021-10-06] MEDS: Artificial Tear Sol 15 ML BOT EA EYE PRN ×2 (08:15→18:43)
[2021-10-06] MEDS: Metoprolol Tartrate 25 MG TAB PO SCH ×2 (08:15→20:01)
[2021-10-06] MEDS: Stress 600 With Zinc 1 TAB PO SCH (08:15)
[2021-10-06] MEDS: Amlodipine 10 MG TAB PO SCH (08:15)
[2021-10-06] MEDS: Ferrous Sulfate 325 MG TAB PO SCH (08:15)
[2021-10-06] MEDS: Sodium Chloride 0.65% Nasal 44 ML BOT EA NARE PRN (08:16)
[2021-10-06] MEDS: Zolpidem Tartrate 5 MG TAB PO SCH (20:01)
[2021-10-06] MEDS: Docusate 100 MG CAP PO SCH (20:01)
[2021-10-07] MEDS: HYDROcodone/Acetaminophen 7.5/325 mg Tablet PO PRN ×5 (00:37→23:37)
[2021-10-07] MEDS: Levothyroxine Sodium 50 MCG TAB PO SCH (04:56)
[2021-10-07] MEDS: Benzonatate 100 MG CAP PO PRN ×2 (08:06→17:01)
[2021-10-07] MEDS: Gabapentin 300 MG CAP PO SCH ×3 (08:07→19:35)
[2021-10-07] MEDS: Metoprolol Tartrate 25 MG TAB PO SCH ×2 (08:07→19:36)
[2021-10-07] MEDS: Magnesium Oxide 400 MG TAB PO SCH ×2 (08:08→19:36)
[2021-10-07] MEDS: Calcium Carbonate 600 MG + Vit D TAB PO SCH (08:08)
[2021-10-07] MEDS: Cholecalciferol 1,000 UNITS (25 MCG) TAB PO SCH (08:08)
[2021-10-07] MEDS: Amlodipine 10 MG TAB PO SCH (08:08)
[2021-10-07] MEDS: Losartan Potassium 50 MG TAB PO SCH (08:08)
[2021-10-07] MEDS: Stress 600 With Zinc 1 TAB PO SCH (08:08)
[2021-10-07] MEDS: Ferrous Sulfate 325 MG TAB PO SCH (08:09)
[2021-10-07] MEDS: Artificial Tear Sol 15 ML BOT EA EYE PRN (08:11)
[2021-10-07] MEDS: Sodium Chloride 0.65% Nasal 44 ML BOT EA NARE PRN (08:11)
[2021-10-07] MEDS: Loratadine 10 MG TAB PO SCH (08:13)
[2021-10-07] MEDS: Aspirin 81 mg Enteric Coated Tablet PO SCH (08:20)
[2021-10-07] MEDS: Cepastat Lozenges 1 LOZ PO PRN ×2 (11:34→13:20)
[2021-10-07] MEDS: Docusate 100 MG CAP PO SCH (19:35)
[2021-10-07] MEDS: Zolpidem Tartrate 5 MG TAB PO SCH (19:36)
[2021-10-08] MEDS: Levothyroxine Sodium 50 MCG TAB PO SCH (05:17)
[2021-10-08 05:37] LABS: Hemoglobin 8.2 g/dL (12.0-16.0)
[2021-10-08] MEDS: Sodium Chloride 0.65% Nasal 44 ML BOT EA NARE PRN (08:27)
[2021-10-08] MEDS: Artificial Tear Sol 15 ML BOT EA EYE PRN (08:27)
[2021-10-08] MEDS: Stress 600 With Zinc 1 TAB PO SCH (08:30)
[2021-10-08] MEDS: Calcium Carbonate 600 MG + Vit D TAB PO SCH (08:30)
[2021-10-08] MEDS: Losartan Potassium 50 MG TAB PO SCH (08:30)
[2021-10-08] MEDS: Cholecalciferol 1,000 UNITS (25 MCG) TAB PO SCH (08:30)
[2021-10-08] MEDS: Aspirin 81 mg Enteric Coated Tablet PO SCH (08:30)
[2021-10-08] MEDS: Ferrous Sulfate 325 MG TAB PO SCH (08:30)
[2021-10-08] MEDS: Metoprolol Tartrate 25 MG TAB PO SCH ×2 (08:31→19:46)
[2021-10-08] MEDS: Loratadine 10 MG TAB PO SCH (08:31)
[2021-10-08] MEDS: Magnesium Oxide 400 MG TAB PO SCH ×2 (08:31→19:47)
[2021-10-08] MEDS: Amlodipine 10 MG TAB PO SCH (08:31)
[2021-10-08] MEDS: Gabapentin 300 MG CAP PO SCH ×3 (08:33→19:46)
[2021-10-08] MEDS: Benzonatate 100 MG CAP PO PRN (08:42)
[2021-10-08] MEDS: Cepastat Lozenges 1 LOZ PO PRN (08:42)
[2021-10-08] MEDS: Ondansetron ODT 4 MG TAB PO PRN (11:27)
[2021-10-08] MEDS: HYDROcodone/Acetaminophen 7.5/325 mg Tablet PO PRN ×2 (13:51→19:47)
[2021-10-08] MEDS: Docusate 100 MG CAP PO SCH (19:45)
[2021-10-08] MEDS: Zolpidem Tartrate 5 MG TAB PO SCH (19:48)
[2021-10-09] MEDS: Levothyroxine Sodium 50 MCG TAB PO SCH (05:11)
[2021-10-09] MEDS: Calcium Carbonate 600 MG + Vit D TAB PO SCH (08:24)
[2021-10-09] MEDS: Cholecalciferol 1,000 UNITS (25 MCG) TAB PO SCH (08:24)
[2021-10-09] MEDS: Gabapentin 300 MG CAP PO SCH ×3 (08:24→20:34)
[2021-10-09] MEDS: Losartan Potassium 50 MG TAB PO SCH (08:24)
[2021-10-09] MEDS: Amlodipine 10 MG TAB PO SCH (08:25)
[2021-10-09] MEDS: Stress 600 With Zinc 1 TAB PO SCH (08:25)
[2021-10-09] MEDS: Metoprolol Tartrate 25 MG TAB PO SCH ×2 (08:25→20:34)
[2021-10-09] MEDS: Polyethylene Glycol 3350 17 GM Packet PO SCH (08:25)
[2021-10-09] MEDS: Loratadine 10 MG TAB PO SCH (08:25)
[2021-10-09] MEDS: Ferrous Sulfate 325 MG TAB PO SCH (08:25)
[2021-10-09] MEDS: Magnesium Oxide 400 MG TAB PO SCH ×2 (08:25→20:34)
[2021-10-09] MEDS: Aspirin 81 mg Enteric Coated Tablet PO SCH (08:26)
[2021-10-09] MEDS: HYDROcodone/Acetaminophen 7.5/325 mg Tablet PO PRN ×2 (10:30→20:36)
[2021-10-09 13:32] LABS: #Basophils 0.1 thou/uL (0.0-0.2); #Eosinphils 0.1 thou/uL (0.0-0.7); #Lymphocytes 2.1 thou/uL (1.20-3.40); #Monocytes 0.8 thou/uL (0.11-0.59); %Basophils 1.1 % (0.0-1.0); %Eosinophils 0.8 % (0.0-10.0); %Lymphocytes 20.7 % (21.0-51.0); %Monocytes 7.6 % (0.0-10.0); %Neutrophils 69.8 % (42.0-75.0); Hemoglobin 8.4 g/dL (12.0-16.0); Mean Corpuscular HGB CONC 29.6 g/dL (32.0-36.0); Mean Corpuscular Hemoglobin 28.1 pg (27.0-31.0); Mean Platelet Volume 5.1 fL (7.4-10.4); Platelet Count 383 thou/uL (130-400); RBC Distribution Width 16.7 % (11.5-14.5)
[2021-10-09 13:42] LABS: Anion Gap 16 mmol/L (10-20); BUN (Urea Nitrogen) 11 mg/dL (9.8-20.1); Calc. Creatinine Clearance 58 mL/min (70-130); Calcium 8.7 mg/dL (7.8-10.44); Carbon Dioxide 23 mmol/L (23-31); Chloride 94 mmol/L (98-107); Glucose 114 mg/dL (83-110); Potassium 4.5 mmol/L (3.5-5.1); Sodium 128 mmol/L (136-145)
[2021-10-09] MEDS: Docusate 100 MG CAP PO SCH (20:34)
[2021-10-09] MEDS: Zolpidem Tartrate 5 MG TAB PO SCH (20:35)
[2021-10-09] MEDS: Benzonatate 100 MG CAP PO PRN (20:37)
[2021-10-10] MEDS: Levothyroxine Sodium 50 MCG TAB PO SCH (05:39)
[2021-10-10] MEDS: Calcium Carbonate 600 MG + Vit D TAB PO SCH (07:22)
[2021-10-10] MEDS: Loratadine 10 MG TAB PO SCH (07:23)
[2021-10-10] MEDS: Aspirin 81 mg Enteric Coated Tablet PO SCH (07:23)
[2021-10-10] MEDS: Cholecalciferol 1,000 UNITS (25 MCG) TAB PO SCH (07:23)
[2021-10-10] MEDS: Metoprolol Tartrate 25 MG TAB PO SCH ×2 (07:23→21:32)
[2021-10-10] MEDS: Losartan Potassium 50 MG TAB PO SCH (07:23)
[2021-10-10] MEDS: Stress 600 With Zinc 1 TAB PO SCH (07:23)
[2021-10-10] MEDS: Magnesium Oxide 400 MG TAB PO SCH ×2 (07:23→21:35)
[2021-10-10] MEDS: HYDROcodone/Acetaminophen 7.5/325 mg Tablet PO PRN ×3 (07:24→21:33)
[2021-10-10] MEDS: Amlodipine 10 MG TAB PO SCH (07:24)
[2021-10-10] MEDS: Gabapentin 300 MG CAP PO SCH ×3 (07:24→21:33)
[2021-10-10] MEDS: Ferrous Sulfate 325 MG TAB PO SCH (07:25)
[2021-10-10] MEDS: Polyethylene Glycol 3350 17 GM Packet PO SCH (07:25)
[2021-10-10] MEDS: Artificial Tear Sol 15 ML BOT EA EYE PRN (07:27)
[2021-10-10] MEDS: Sodium Chloride 0.65% Nasal 44 ML BOT EA NARE PRN (07:27)
[2021-10-10] MEDS: Benzonatate 100 MG CAP PO PRN ×2 (07:36→21:32)
[2021-10-10] MEDS ORDERED: Furosemide 40 MG TAB PO SCH (14:00)
[2021-10-10] MEDS: Docusate 100 MG CAP PO SCH (21:32)
[2021-10-10] MEDS: Zolpidem Tartrate 5 MG TAB PO SCH (21:32)
[2021-10-11] MEDS: Levothyroxine Sodium 50 MCG TAB PO SCH (05:36)
[2021-10-11 06:25] LABS: Anion Gap 17 mmol/L (10-20); BUN (Urea Nitrogen) 12 mg/dL (9.8-20.1); Calc. Creatinine Clearance 61 mL/min (70-130); Calcium 8.7 mg/dL (7.8-10.44); Carbon Dioxide 26 mmol/L (23-31); Chloride 95 mmol/L (98-107); Glucose 98 mg/dL (83-110); Potassium 4.1 mmol/L (3.5-5.1); Sodium 134 mmol/L (136-145)
[2021-10-11] MEDS: Metoprolol Tartrate 25 MG TAB PO SCH ×2 (08:08→21:09)
[2021-10-11] MEDS: Magnesium Oxide 400 MG TAB PO SCH ×2 (08:08→21:09)
[2021-10-11] MEDS: Calcium Carbonate 600 MG + Vit D TAB PO SCH (08:08)
[2021-10-11] MEDS: Amlodipine 10 MG TAB PO SCH (08:09)
[2021-10-11] MEDS: Ferrous Sulfate 325 MG TAB PO SCH (08:09)
[2021-10-11] MEDS: Benzonatate 100 MG CAP PO PRN (08:09)
[2021-10-11] MEDS: Cholecalciferol 1,000 UNITS (25 MCG) TAB PO SCH (08:09)
[2021-10-11] MEDS: Stress 600 With Zinc 1 TAB PO SCH (08:09)
[2021-10-11] MEDS: Losartan Potassium 50 MG TAB PO SCH (08:09)
[2021-10-11] MEDS: Furosemide 40 MG TAB PO SCH (08:09)
[2021-10-11] MEDS: Loratadine 10 MG TAB PO SCH (08:09)
[2021-10-11] MEDS: Aspirin 81 mg Enteric Coated Tablet PO SCH (08:09)
[2021-10-11] MEDS: Polyethylene Glycol 3350 17 GM Packet PO SCH (08:12)
[2021-10-11] MEDS: Gabapentin 300 MG CAP PO SCH ×3 (08:12→21:10)
[2021-10-11] MEDS: Artificial Tear Sol 15 ML BOT EA EYE PRN ×2 (08:13→21:15)
[2021-10-11] MEDS: Sodium Chloride 0.65% Nasal 44 ML BOT EA NARE PRN (08:13)
[2021-10-11] MEDS: Ondansetron ODT 4 MG TAB PO PRN (08:36)
[2021-10-11] MEDS: HYDROcodone/Acetaminophen 7.5/325 mg Tablet PO PRN ×3 (10:08→21:11)
[2021-10-11] MEDS: Docusate 100 MG CAP PO SCH (21:09)
[2021-10-11] MEDS: Zolpidem Tartrate 5 MG TAB PO SCH (21:10)
[2021-10-12] MEDS: Levothyroxine Sodium 50 MCG TAB PO SCH (05:13)
[2021-10-12 06:27] LABS: Anion Gap 17 mmol/L (10-20); BUN (Urea Nitrogen) 13 mg/dL (9.8-20.1); Calc. Creatinine Clearance 58 mL/min (70-130); Calcium 8.7 mg/dL (7.8-10.44); Carbon Dioxide 26 mmol/L (23-31); Chloride 94 mmol/L (98-107); Glucose 94 mg/dL (83-110); Sodium 133 mmol/L (136-145)
[2021-10-12] MEDS: Artificial Tear Sol 15 ML BOT EA EYE PRN (08:11)
[2021-10-12] MEDS: Sodium Chloride 0.65% Nasal 44 ML BOT EA NARE PRN (08:11)
[2021-10-12] MEDS: Aspirin 81 mg Enteric Coated Tablet PO SCH (08:12)
[2021-10-12] MEDS: Gabapentin 300 MG CAP PO SCH ×3 (08:12→20:53)
[2021-10-12] MEDS: Polyethylene Glycol 3350 17 GM Packet PO SCH (08:12)
[2021-10-12] MEDS: Cholecalciferol 1,000 UNITS (25 MCG) TAB PO SCH (08:13)
[2021-10-12] MEDS: Calcium Carbonate 600 MG + Vit D TAB PO SCH (08:13)
[2021-10-12] MEDS: Loratadine 10 MG TAB PO SCH (08:13)
[2021-10-12] MEDS: Furosemide 40 MG TAB PO SCH (08:14)
[2021-10-12] MEDS: Stress 600 With Zinc 1 TAB PO SCH (08:14)
[2021-10-12] MEDS: Amlodipine 10 MG TAB PO SCH (08:14)
[2021-10-12] MEDS: Magnesium Oxide 400 MG TAB PO SCH ×2 (08:15→20:53)
[2021-10-12] MEDS: Ferrous Sulfate 325 MG TAB PO SCH (08:15)
[2021-10-12] MEDS: Losartan Potassium 50 MG TAB PO SCH (08:15)
[2021-10-12] MEDS: Metoprolol Tartrate 25 MG TAB PO SCH ×2 (08:15→20:53)
[2021-10-12] MEDS: HYDROcodone/Acetaminophen 7.5/325 mg Tablet PO PRN ×3 (08:16→20:52)
[2021-10-12] MEDS: Docusate 100 MG CAP PO SCH (20:53)
[2021-10-12] MEDS: Zolpidem Tartrate 5 MG TAB PO SCH (20:53)
[2021-10-13] MEDS: Levothyroxine Sodium 50 MCG TAB PO SCH (05:26)
[2021-10-13 06:33] LABS: Anion Gap 16 mmol/L (10-20); BUN (Urea Nitrogen) 12 mg/dL (9.8-20.1); Calc. Creatinine Clearance 63 mL/min (70-130); Calcium 8.8 mg/dL (7.8-10.44); Carbon Dioxide 27 mmol/L (23-31); Chloride 95 mmol/L (98-107); Glucose 96 mg/dL (83-110); Potassium 3.8 mmol/L (3.5-5.1); Sodium 134 mmol/L (136-145)
[2021-10-13] MEDS: HYDROcodone/Acetaminophen 7.5/325 mg Tablet PO PRN ×2 (07:36→20:20)
[2021-10-13] MEDS: Gabapentin 300 MG CAP PO SCH ×3 (07:38→20:19)
[2021-10-13] MEDS: Loratadine 10 MG TAB PO SCH (07:38)
[2021-10-13] MEDS: Losartan Potassium 50 MG TAB PO SCH (07:38)
[2021-10-13] MEDS: Stress 600 With Zinc 1 TAB PO SCH (07:39)
[2021-10-13] MEDS: Ferrous Sulfate 325 MG TAB PO SCH (07:39)
[2021-10-13] MEDS: Furosemide 40 MG TAB PO SCH (07:40)
[2021-10-13] MEDS: Amlodipine 10 MG TAB PO SCH (07:40)
[2021-10-13] MEDS: Cholecalciferol 1,000 UNITS (25 MCG) TAB PO SCH (07:40)
[2021-10-13] MEDS: Magnesium Oxide 400 MG TAB PO SCH ×2 (07:40→20:19)
[2021-10-13] MEDS: Polyethylene Glycol 3350 17 GM Packet PO SCH (07:41)
[2021-10-13] MEDS: Artificial Tear Sol 15 ML BOT EA EYE PRN (07:41)
[2021-10-13] MEDS: Sodium Chloride 0.65% Nasal 44 ML BOT EA NARE PRN (07:41)
[2021-10-13] MEDS: Metoprolol Tartrate 25 MG TAB PO SCH ×2 (07:41→20:20)
[2021-10-13] MEDS: Calcium Carbonate 600 MG + Vit D TAB PO SCH (07:43)
[2021-10-13] MEDS: Aspirin 81 mg Enteric Coated Tablet PO SCH (07:49)
[2021-10-13] MEDS: Docusate 100 MG CAP PO SCH (20:19)
[2021-10-13] MEDS: Zolpidem Tartrate 5 MG TAB PO SCH (20:20)
[2021-10-14] MEDS: Levothyroxine Sodium 50 MCG TAB PO SCH (05:54)
[2021-10-14] MEDS: HYDROcodone/Acetaminophen 7.5/325 mg Tablet PO PRN ×3 (05:54→20:45)
[2021-10-14] MEDS: Calcium Carbonate 600 MG + Vit D TAB PO SCH (08:02)
[2021-10-14] MEDS: Cholecalciferol 1,000 UNITS (25 MCG) TAB PO SCH (08:02)
[2021-10-14] MEDS: Stress 600 With Zinc 1 TAB PO SCH (08:02)
[2021-10-14] MEDS: Aspirin 81 mg Enteric Coated Tablet PO SCH (08:03)
[2021-10-14] MEDS: Amlodipine 10 MG TAB PO SCH (08:03)
[2021-10-14] MEDS: Gabapentin 300 MG CAP PO SCH ×3 (08:03→20:46)
[2021-10-14] MEDS: Loratadine 10 MG TAB PO SCH (08:03)
[2021-10-14] MEDS: Magnesium Oxide 400 MG TAB PO SCH ×2 (08:03→20:47)
[2021-10-14] MEDS: Furosemide 40 MG TAB PO SCH (08:04)
[2021-10-14] MEDS: Ferrous Sulfate 325 MG TAB PO SCH (08:04)
[2021-10-14] MEDS: Metoprolol Tartrate 25 MG TAB PO SCH ×2 (08:04→20:46)
[2021-10-14] MEDS: Polyethylene Glycol 3350 17 GM Packet PO SCH (08:04)
[2021-10-14] MEDS: Losartan Potassium 50 MG TAB PO SCH (08:07)
[2021-10-14] MEDS: Docusate 100 MG CAP PO SCH (20:46)
[2021-10-14] MEDS: Zolpidem Tartrate 5 MG TAB PO SCH (20:46)
[2021-10-15] MEDS: HYDROcodone/Acetaminophen 7.5/325 mg Tablet PO PRN ×3 (05:48→21:15)
[2021-10-15] MEDS: Levothyroxine Sodium 50 MCG TAB PO SCH (05:49)
[2021-10-15 06:14] LABS: Hemoglobin 8.6 g/dL (12.0-16.0); Mean Corpuscular HGB CONC 30.5 g/dL (32.0-36.0); Mean Corpuscular Hemoglobin 28.3 pg (27.0-31.0); Mean Corpuscular Volume 92.9 fL (78.0-98.0); Mean Platelet Volume 5.4 fL (7.4-10.4); Platelet Count 319 thou/uL (130-400); RBC Distribution Width 16.2 % (11.5-14.5); Red Blood Cell (RBC) Count 3.05 mill/uL (4.20-5.40); White Blood Cell (WBC) Count 6.2 thou/uL (4.8-10.8)
[2021-10-15] MEDS: Gabapentin 300 MG CAP PO SCH ×3 (08:20→21:15)
[2021-10-15] MEDS: Polyethylene Glycol 3350 17 GM Packet PO SCH (08:20)
[2021-10-15] MEDS: Cholecalciferol 1,000 UNITS (25 MCG) TAB PO SCH (08:22)
[2021-10-15] MEDS: Losartan Potassium 50 MG TAB PO SCH (08:23)
[2021-10-15] MEDS: Loratadine 10 MG TAB PO SCH (08:23)
[2021-10-15] MEDS: Aspirin 81 mg Enteric Coated Tablet PO SCH (08:23)
[2021-10-15] MEDS: Ferrous Sulfate 325 MG TAB PO SCH (08:23)
[2021-10-15] MEDS: Calcium Carbonate 600 MG + Vit D TAB PO SCH (08:23)
[2021-10-15] MEDS: Magnesium Oxide 400 MG TAB PO SCH ×2 (08:24→21:15)
[2021-10-15] MEDS: Amlodipine 10 MG TAB PO SCH (08:24)
[2021-10-15] MEDS: Metoprolol Tartrate 25 MG TAB PO SCH ×2 (08:24→21:15)
[2021-10-15] MEDS: Stress 600 With Zinc 1 TAB PO SCH (08:25)
[2021-10-15] MEDS: Artificial Tear Sol 15 ML BOT EA EYE PRN (08:26)
[2021-10-15] MEDS: Sodium Chloride 0.65% Nasal 44 ML BOT EA NARE PRN (08:26)
[2021-10-15] MEDS: Zolpidem Tartrate 5 MG TAB PO SCH (21:15)
[2021-10-15] MEDS: Docusate 100 MG CAP PO SCH (21:15)
[2021-10-16] MEDS: Levothyroxine Sodium 50 MCG TAB PO SCH (05:27)
[2021-10-16] MEDS: Stress 600 With Zinc 1 TAB PO SCH (08:36)
[2021-10-16] MEDS: Aspirin 81 mg Enteric Coated Tablet PO SCH (08:36)
[2021-10-16] MEDS: Gabapentin 300 MG CAP PO SCH ×3 (08:36→20:31)
[2021-10-16] MEDS: Cholecalciferol 1,000 UNITS (25 MCG) TAB PO SCH (08:36)
[2021-10-16] MEDS: Metoprolol Tartrate 25 MG TAB PO SCH ×2 (08:36→20:32)
[2021-10-16] MEDS: Magnesium Oxide 400 MG TAB PO SCH ×2 (08:36→20:31)
[2021-10-16] MEDS: Losartan Potassium 50 MG TAB PO SCH (08:36)
[2021-10-16] MEDS: Ferrous Sulfate 325 MG TAB PO SCH (08:37)
[2021-10-16] MEDS: Calcium Carbonate 600 MG + Vit D TAB PO SCH (08:37)
[2021-10-16] MEDS: HYDROcodone/Acetaminophen 7.5/325 mg Tablet PO PRN ×3 (08:38→20:31)
[2021-10-16] MEDS: Loratadine 10 MG TAB PO SCH (08:38)
[2021-10-16] MEDS: Artificial Tear Sol 15 ML BOT EA EYE PRN (08:39)
[2021-10-16] MEDS: Polyethylene Glycol 3350 17 GM Packet PO SCH (09:02)
[2021-10-16] MEDS: Amlodipine 10 MG TAB PO SCH (09:56)
[2021-10-16] MEDS: Zolpidem Tartrate 5 MG TAB PO SCH (20:32)
[2021-10-16] MEDS: Docusate 100 MG CAP PO SCH (20:32)
[2021-10-17] MEDS: HYDROcodone/Acetaminophen 7.5/325 mg Tablet PO PRN ×3 (05:44→20:13)
[2021-10-17] MEDS: Levothyroxine Sodium 50 MCG TAB PO SCH (05:45)
[2021-10-17] MEDS: Ferrous Sulfate 325 MG TAB PO SCH (08:24)
[2021-10-17] MEDS: Gabapentin 300 MG CAP PO SCH ×3 (08:24→20:13)
[2021-10-17] MEDS: Stress 600 With Zinc 1 TAB PO SCH (08:25)
[2021-10-17] MEDS: Losartan Potassium 50 MG TAB PO SCH (08:25)
[2021-10-17] MEDS: Cholecalciferol 1,000 UNITS (25 MCG) TAB PO SCH (08:26)
[2021-10-17] MEDS: Aspirin 81 mg Enteric Coated Tablet PO SCH (08:26)
[2021-10-17] MEDS: Magnesium Oxide 400 MG TAB PO SCH ×2 (08:26→20:13)
[2021-10-17] MEDS: Amlodipine 10 MG TAB PO SCH (08:27)
[2021-10-17] MEDS: Metoprolol Tartrate 25 MG TAB PO SCH ×2 (08:27→20:12)
[2021-10-17] MEDS: Calcium Carbonate 600 MG + Vit D TAB PO SCH (08:27)
[2021-10-17] MEDS: Polyethylene Glycol 3350 17 GM Packet PO SCH (08:27)
[2021-10-17] MEDS: Loratadine 10 MG TAB PO SCH (08:27)
[2021-10-17] MEDS: Sodium Chloride 0.65% Nasal 44 ML BOT EA NARE PRN (08:28)
[2021-10-17] MEDS: Artificial Tear Sol 15 ML BOT EA EYE PRN (08:28)
[2021-10-17] MEDS: Ondansetron ODT 4 MG TAB PO PRN (12:23)
[2021-10-17 13:55] VITALS: BMI 33.2
[2021-10-17] MEDS: Zolpidem Tartrate 5 MG TAB PO SCH (20:12)
[2021-10-17] MEDS: Docusate 100 MG CAP PO SCH (20:13)
[2021-10-18 06:04] LABS: #Basophils 0.1 thou/uL (0.0-0.2); #Eosinphils 0.2 thou/uL (0.0-0.7); #Lymphocytes 2.2 thou/uL (1.20-3.40); #Monocytes 0.7 thou/uL (0.11-0.59); #Neutrophils 3.7 thou/uL (1.40-6.50); %Basophils 1.2 % (0.0-1.0); %Eosinophils 2.8 % (0.0-10.0); %Monocytes 9.8 % (0.0-10.0); %Neutrophils 54.2 % (42.0-75.0); Hemoglobin 8.2 g/dL (12.0-16.0); Mean Corpuscular HGB CONC 29.6 g/dL (32.0-36.0); Mean Corpuscular Hemoglobin 28.3 pg (27.0-31.0); Mean Corpuscular Volume 95.5 fL (78.0-98.0); Mean Platelet Volume 5.3 fL (7.4-10.4); Platelet Count 273 thou/uL (130-400); RBC Distribution Width 16.4 % (11.5-14.5); White Blood Cell (WBC) Count 6.8 thou/uL (4.8-10.8)
[2021-10-18 06:18] LABS: Anion Gap 16 mmol/L (10-20); BUN (Urea Nitrogen) 10 mg/dL (9.8-20.1); Calc. Creatinine Clearance 66 mL/min (70-130); Calcium 8.7 mg/dL (7.8-10.44); Carbon Dioxide 26 mmol/L (23-31); Chloride 96 mmol/L (98-107); Glucose 93 mg/dL (83-110); Potassium 4.1 mmol/L (3.5-5.1); Sodium 134 mmol/L (136-145)
[2021-10-18] MEDS: HYDROcodone/Acetaminophen 7.5/325 mg Tablet PO PRN ×4 (06:21→20:50)
[2021-10-18] MEDS: Levothyroxine Sodium 50 MCG TAB PO SCH (06:22)
[2021-10-18] MEDS: Stress 600 With Zinc 1 TAB PO SCH (08:11)
[2021-10-18] MEDS: Magnesium Oxide 400 MG TAB PO SCH ×2 (08:11→20:52)
[2021-10-18] MEDS: Gabapentin 300 MG CAP PO SCH ×3 (08:11→20:51)
[2021-10-18] MEDS: Aspirin 81 mg Enteric Coated Tablet PO SCH (08:11)
[2021-10-18] MEDS: Metoprolol Tartrate 25 MG TAB PO SCH ×2 (08:12→20:49)
[2021-10-18] MEDS: Calcium Carbonate 600 MG + Vit D TAB PO SCH (08:12)
[2021-10-18] MEDS: Cholecalciferol 1,000 UNITS (25 MCG) TAB PO SCH (08:12)
[2021-10-18] MEDS: Amlodipine 10 MG TAB PO SCH (08:12)
[2021-10-18] MEDS: Loratadine 10 MG TAB PO SCH (08:12)
[2021-10-18] MEDS: Ferrous Sulfate 325 MG TAB PO SCH (08:12)
[2021-10-18] MEDS: Losartan Potassium 50 MG TAB PO SCH (08:12)
[2021-10-18] MEDS: Polyethylene Glycol 3350 17 GM Packet PO SCH (09:31)
[2021-10-18] MEDS: Docusate 100 MG CAP PO SCH (20:49)
[2021-10-18] MEDS: Zolpidem Tartrate 5 MG TAB PO SCH (20:49)
[2021-10-19] MEDS: Levothyroxine Sodium 50 MCG TAB PO SCH (05:47)
[2021-10-19] MEDS: HYDROcodone/Acetaminophen 7.5/325 mg Tablet PO PRN ×4 (05:47→21:00)
[2021-10-19] MEDS: Losartan Potassium 50 MG TAB PO SCH (09:00)
[2021-10-19] MEDS: Ferrous Sulfate 325 MG TAB PO SCH (09:00)
[2021-10-19] MEDS: Amlodipine 10 MG TAB PO SCH (09:00)
[2021-10-19] MEDS: Metoprolol Tartrate 25 MG TAB PO SCH ×2 (09:00→20:59)
[2021-10-19] MEDS: Calcium Carbonate 600 MG + Vit D TAB PO SCH (09:00)
[2021-10-19] MEDS: Aspirin 81 mg Enteric Coated Tablet PO SCH (09:00)
[2021-10-19] MEDS: Loratadine 10 MG TAB PO SCH (09:00)
[2021-10-19] MEDS: Gabapentin 300 MG CAP PO SCH ×3 (09:01→20:58)
[2021-10-19] MEDS: Stress 600 With Zinc 1 TAB PO SCH (09:01)
[2021-10-19] MEDS: Cholecalciferol 1,000 UNITS (25 MCG) TAB PO SCH (09:01)
[2021-10-19] MEDS: Polyethylene Glycol 3350 17 GM Packet PO SCH (09:02)
[2021-10-19] MEDS: Magnesium Oxide 400 MG TAB PO SCH ×2 (09:02→20:59)
[2021-10-19] MEDS: Docusate 100 MG CAP PO SCH (20:59)
[2021-10-19] MEDS: Zolpidem Tartrate 5 MG TAB PO SCH (20:59)
[2021-10-20] MEDS: Levothyroxine Sodium 50 MCG TAB PO SCH (05:35)
[2021-10-20] MEDS: HYDROcodone/Acetaminophen 7.5/325 mg Tablet PO PRN ×3 (08:18→18:15)
[2021-10-20] MEDS: Calcium Carbonate 600 MG + Vit D TAB PO SCH (08:21)
[2021-10-20] MEDS: Stress 600 With Zinc 1 TAB PO SCH (08:21)
[2021-10-20] MEDS: Loratadine 10 MG TAB PO SCH (08:22)
[2021-10-20] MEDS: Ferrous Sulfate 325 MG TAB PO SCH (08:22)
[2021-10-20] MEDS: Aspirin 81 mg Enteric Coated Tablet PO SCH (08:23)
[2021-10-20] MEDS: Losartan Potassium 50 MG TAB PO SCH (08:23)
[2021-10-20] MEDS: Metoprolol Tartrate 25 MG TAB PO SCH (08:23)
[2021-10-20] MEDS: Cholecalciferol 1,000 UNITS (25 MCG) TAB PO SCH (08:23)
[2021-10-20] MEDS: Amlodipine 10 MG TAB PO SCH (08:24)
[2021-10-20] MEDS: Gabapentin 300 MG CAP PO SCH ×2 (08:25→15:58)
[2021-10-20] MEDS: Magnesium Oxide 400 MG TAB PO SCH (08:27)
[2021-10-20] MEDS: Polyethylene Glycol 3350 17 GM Packet PO SCH (08:29)
[2021-10-20 19:37] VITALS: BP 159/70; TEMP 98.2
== END 2021-10-20 19:36 | disposition home health service (06) | DRG 947 ==
LOC: NAV ACUTE 11:52
PROVIDERS: ADMIT Family Medicine; ATTEND Family Medicine
DX: R53.81 Other malaise (principal); J96.21 Acute and chronic respiratory failure with hypoxia; E87.1 Hypo-osmolality and hyponatremia; I50.32 Chronic diastolic (congestive) heart failure; M48.00 Spinal stenosis, site unspecified; E78.2 Mixed hyperlipidemia; E87.6 Hypokalemia; I49.3 Ventricular premature depolarization; K26.9 Duodenal ulcer, unspecified as acute or chronic, without hemorrhage or perforation; R35.0 Frequency of micturition; G89.4 Chronic pain syndrome; D50.0 Iron deficiency anemia secondary to blood loss (chronic); I11.0 Hypertensive heart disease with heart failure; J44.9 Chronic obstructive pulmonary disease, unspecified; M54.9 Dorsalgia, unspecified; R00.1 Bradycardia, unspecified; R53.1 Weakness; Z20.822 Contact with and (suspected) exposure to COVID-19; S22.31XD Fracture of one rib, right side, subsequent encounter for fracture with routine healing; Z88.2 Allergy status to sulfonamides; Z88.0 Allergy status to penicillin; Z79.82 Long term (current) use of aspirin; Z79.899 Other long term (current) drug therapy; Z79.890 Hormone replacement therapy; Z87.891 Personal history of nicotine dependence; Z98.890 Other specified postprocedural states; Z90.710 Acquired absence of both cervix and uterus; Z90.49 Acquired absence of other specified parts of digestive tract; S01.81XS Laceration without foreign body of other part of head, sequela; W18.30XD Fall on same level, unspecified, subsequent encounter
CPT/HCPCS: 36415; 36416; 71046; 80048; 80053; 81001; 83735; 83880; 84145; 84484; 85014; 85018; 85025; 85027; 94640; J7620; Q0162; U0003; U0005

== ENCOUNTER 2021-09-24 18:41 | Emergency (ER) | payer MEDICARE ==
[2021-09-24] MEDS ORDERED: Sodium Chloride 0.9% 500 ML ONE (19:06)
[2021-09-24 19:08] LABS: #Basophils 0.1 thou/uL (0.0-0.2); #Eosinphils 0.3 thou/uL (0.0-0.7); #Lymphocytes 2.5 thou/uL (1.20-3.40); #Monocytes 0.8 thou/uL (0.11-0.59); #Neutrophils 6.4 thou/uL (1.40-6.50); %Lymphocytes 24.9 % (21.0-51.0); %Monocytes 7.6 % (0.0-10.0); %Neutrophils 63.5 % (42.0-75.0); Mean Corpuscular HGB CONC 31.3 g/dL (32.0-36.0); Mean Corpuscular Hemoglobin 28.9 pg (27.0-31.0); Mean Corpuscular Volume 92.3 fL (78.0-98.0); Mean Platelet Volume 5.3 fL (7.4-10.4); Platelet Count 360 thou/uL (130-400); RBC Distribution Width 15.6 % (11.5-14.5); Red Blood Cell (RBC) Count 2.79 mill/uL (4.20-5.40); White Blood Cell (WBC) Count 10.1 thou/uL (4.8-10.8)
[2021-09-24 19:24] LABS: ALT (SGPT) 13 U/L (8-55); AST (SGOT) 11 U/L (5-34); Albumin 3.3 g/dL (3.4-4.8); Alkaline Phosphatase 46 U/L (40-110); Anion Gap 16 mmol/L (10-20); BUN (Urea Nitrogen) 11 mg/dL (9.8-20.1); Bilirubin, Total 0.2 mg/dL (0.2-1.2); Calc. Creatinine Clearance 0 mL/min (70-130); Calcium 8.4 mg/dL (7.8-10.44); Carbon Dioxide 27 mmol/L (23-31); Chloride 97 mmol/L (98-107); Globulin 2.4 g/dL (2.4-3.5); Glucose 125 mg/dL (83-110); Magnesium 1.7 mg/dL (1.6-2.6); Potassium 3.9 mmol/L (3.5-5.1); Protein, Total 5.7 g/dL (5.8-8.1); Sodium 136 mmol/L (136-145)
[2021-09-24] MEDS ORDERED: Magnesium 2 GM/50 ML BAG (IN WATER) ONE (20:01)
[2021-09-24] MEDS ORDERED: Potassium Chloride 20 MEQ TAB ONE (20:01)
== END 2021-09-24 21:26 | disposition home or self-care (01) ==
LOC: NAV ERS 18:41
DX: I49.3 Ventricular premature depolarization (principal); D64.9 Anemia, unspecified; I10 Essential (primary) hypertension; Z87.891 Personal history of nicotine dependence; Z79.899 Other long term (current) drug therapy; Z79.82 Long term (current) use of aspirin
CPT/HCPCS: 71045; 83735; 84443; 84484; 93005; 94760; 96361; 96365; J3475; J7030